=== PATIENT | female | born 1960 | race Caucasian/White ===

== ENCOUNTER → 2016-11-26 | Outpatient (CLI) | payer MEDICARE ==
--- NOTE | 2016-11-26 09:33 | US ---
EXAMINATION TYPE: US carotid duplex BILAT DATE OF EXAM: 11/26/2016 COMPARISON:NONE CLINICAL HISTORY: R09.89 CAROTID BRUIT. Right Carotid Bruit EXAM MEASUREMENTS: RIGHT: Peak Systolic Velocity (PSV) cm/sec ----- Right CCA: 66.0 ----- Right ICA: 277.6 ----- Right ECA: 146.5 ICA/CCA ratio: 4.2 RIGHT: End Diastole cm/sec ----- Right CCA: 23.2 ----- Right ICA: 149.4 ----- Right ECA: 38.2 LEFT: Peak Systolic Velocity (PSV) cm/sec ----- Left CCA: 64.3 ----- Left ICA: 78.7 ----- Left ECA: 126.4 ICA/CCA ratio: 1.2 LEFT: End Diastole cm/sec ----- Left CCA: 27.6 ----- Left ICA: 44.2 ----- Left ECA: 28.0 VERTEBRALS (direction of flow): Right Vertebral: Antegrade Left Vertebral: Antegrade Soft plaque within right ICA with significant stenosis right ICA and right ECA IMPRESSION: Severe internal carotid artery stenosis on the right. This is greater than 70%. Correlat e with patient's clinical symptoms. 2. Mild left external carotid artery narrowing of less than 50%. The left internal carotid artery is not stenotic. Criteria for Assigning % of Stenosis / Diameter reduction (Estimation based on the indirect measurements of the internal carotid artery velocities (ICA PSV). 1. Normal (no stenosis)=ICA PSV < 125 cm/s: ratio < 2.0: ICA EDV<40 cm/s. 2. Less than 50% stenosis=ICA PSV < 125 cm/s: ratio < 2.0: ICA EDV<40 cm/s. 3. 50 to 69% stenosis=ICA PSV of 125 to 230 cm/s: ration 2.0 ? 4.0: ICA EDV 40-100 cm/s. 4. Greater than 70% stenosis to near occlusion= ICA PSV > 230 cm/s: ratio > 4.0: ICA EDV > 100 cm/s. 5. Near occlusion= ICA PSV velocities may be low or undetectable: variable ratio and ICA EDV. 6. Total occlusion=unable to detect flow.
== END | disposition home or self-care (01) ==
LOC: RADUSWWP 08:50
PROVIDERS: ATTEND Family Medicine
DX: I65.23 Occlusion and stenosis of bilateral carotid arteries (principal)
CPT/HCPCS: 93880

== ENCOUNTER → 2017-01-17 | Outpatient (CLI) | payer MEDICARE, OTHER ==
--- NOTE | 2017-01-17 18:41 | CT ---
EXAMINATION TYPE: CT angio neck DATE OF EXAM: 01/17/2017 HISTORY: Left arm numbness and carotid stenosis. COMPARISON: Carotid ultrasound dated 11/26/2016 CT DLP: 450.4 mGycm. Automated Exposure Control for Dose Reduction was Utilized. TECHNIQUE: CTA scan of the neck is performed without and with IV Contrast, patient injected with 65 mL of Omnipaque 350, axial images are obtained, coronal and sagittal reformatted images are reviewed. Three-D reconstructed images are created on an independent workstation and reviewed. FINDINGS: Carotid/Vascular Structures: At the origin of the right common carotid artery there is both soft and calcific plaquing occupying less than 50% of the lumen, not hemodynamically significant. The remainde r the common carotid artery is unremarkable on the right, however at the carotid bulb there is both n oncalcified plaque and calcific atheromatous changes narrowing the lumen approximately 50%. Just dist al to this there is a short segment of approximately 1.2 cm above stenosis greater than 70% caused by noncalcified atheromatous plaquing. There is ostial narrowing of the external carotid artery of appr oximately 50% at its origin. The cervical portion, petrous portion, cavernous portion, and supraclino id portion of the right internal carotid artery are without atheromatous changes. No proximal atherosclerosis is seen on the left. At the origin of the left external carotid artery at the carotid bulb there is ostial atherosclerosis narrowing the origin significantly, with no postste notic dilatation (greater than 50%). The cervical portion, petrous portion, cavernous portion, and heart praclinoid portion of the left internal carotid artery are without atheromatous changes. Other: Biapical pleural-parenchymal scarring is noted. Multilevel degenerative disc disease is also n oted with stranding of the usual cervical lordosis. Disc disease is most pronounced at C5-C6 and C6-C 7. IMPRESSION: 1. Short segment area of severe stenosis (greater than 70%) within the internal carotid artery on the right just distal to the carotid bifurcation secondary to noncalcified plaquing. 2. Ostial narrowing at the origins of both external carotid arteries with no evidence of poststenotic dilatation. 3. No evidence of hemodynamically significant stenosis of the left common carotid or internal carotid artery.
== END | disposition home or self-care (01) ==
LOC: RADCTMAIN 16:37
PROVIDERS: ATTEND Thoracic Surgery (Cardiothoracic Vascular Surgery)
DX: I65.23 Occlusion and stenosis of bilateral carotid arteries (principal)
CPT/HCPCS: 70498; Q9967

== ENCOUNTER → 2017-02-03 | Outpatient (CLI) | payer MEDICARE, OTHER ==
[2017-02-03 16:30] LABS: EKG EKG PERFORMED
[2017-02-03 16:59] LABS: Basophils % (A) 1 %; CH 30.1; CHCM 32.4; Eosinophils # (A) 0.3 k/uL (0-0.7); Eosinophils % (A) 4 %; HCT 46.7 % (34.0-46.0); HDW 2.44; HGB 14.9 gm/dL (11.4-16.0); Luc # (Auto) 0.14; Luc % (Auto) 2; Lymphocytes # (A) 2.7 k/uL (1.0-4.8); Lymphocytes % (A) 38 %; MCH 29.7 pg (25.0-35.0); MCHC 31.8 g/dL (31.0-37.0); MCV 93.4 fL (80.0-100.0); Mean Platelet Volume 7.4; Monocytes # (A) 0.4 k/uL (0-1.0); Monocytes % (A) 6 %; Neutrophils # (A) 3.6 k/uL (1.3-7.7); Neutrophils % (A) 51 %; RDW 15.3 % (11.5-15.5); WBC 7.1 k/uL (3.8-10.6); WBC (Perox) 6.91
[2017-02-03 17:03] LABS: Partial Thromboplastin Time 27.2 sec (22.0-30.0); Prothrombin Time 9.9 sec (9.0-12.0)
[2017-02-03 17:08] LABS: Anion Gap 8 mmol/L; Blood Urea Nitrogen 10 mg/dL (7-17); Carbon Dioxide 28 mmol/L (22-30); Chloride 104 mmol/L (98-107); Glucose 84 mg/dL (74-99); Non-African American GFR(MDRD) 47 (>60 ml/min/1.73 sqM); Potassium 4.8 mmol/L (3.5-5.1); Sodium 140 mmol/L (137-145)
== END | disposition home or self-care (01) ==
LOC: LABPAT 16:10
PROVIDERS: ATTEND Thoracic Surgery (Cardiothoracic Vascular Surgery)
DX: Z01.810 Encounter for preprocedural cardiovascular examination (principal); Z01.812 Encounter for preprocedural laboratory examination; R53.83 Other fatigue; I65.21 Occlusion and stenosis of right carotid artery
CPT/HCPCS: 80051; 82565; 82947; 84520; 85025; 85610; 85730; 86850; 86900; 86901; 87077; 87086; 87186; 93005

== ENCOUNTER 2017-02-07 06:24 | Inpatient (IN) | payer MEDICARE, OTHER ==
[2017-02-03 15:22] VITALS: BMI 25.8
[~2017-02-07 06:24] MED LIST: DEXAMETHASONE SOD PHOSPHATE 10 MG/ML 1 ML VIAL IV ONE; HYDROmorphone 1 MG/ML 1 ML SYRINGE IVP PRN; LACTATED RINGERS 1,000 ML IV SCH; LIDOCAINE 1% 20 ML VIAL (10MG/ML) FOR IV START INTRADERMA PRN; MIDAZOLAM 2 MG/2 ML VIAL IV PRN; NITROGLYCERIN-D5W PMX 50 MG in DEXTROSE/WATER 1 250ML.BAG IV SCH; ONDANSETRON 4 MG/2 ML VIAL IVP ONE; PHENYLEPHRINE 40 MG in SODIUM CHLORIDE 0.9% 250 ML IV SCH; SCOPOLAMINE 1.5MG/72HR PATCH TRANSDERM ONE; ceFAZolin 2 GM in SODIUM CHLORIDE 0.9% 100 ML IVPB ONE
[2017-02-07] MEDS ORDERED: PROPOFOL 10 MG/ML 20 ML VIAL IV ONE (07:55)
[2017-02-07] MEDS ORDERED: fentaNYL (PF) 50 MCG/ML 2 ML AMP ONE (07:55)
[2017-02-07] MEDS ORDERED: GLYCOPYRROLATE 0.2 MG/ML 2 ML VIAL ONE (07:55)
[2017-02-07] MEDS ORDERED: SUCCINYLCHOLINE CHLORIDE 100 MG/5 ML SYR IV ONE (07:55)
[2017-02-07] MEDS ORDERED: LABETALOL 5 MG/ML VIAL MDV ONE (07:55)
[2017-02-07] MEDS ORDERED: MORPHINE SULFATE 10 MG/ML SYRINGE ONE (07:55)
[2017-02-07] MEDS ORDERED: PHENYLEPHRINE-0.9% NACL SYG 1 MG/10 ML SYRINGE ONE (07:55)
[2017-02-07] MEDS ORDERED: MIDAZOLAM 2 MG/2 ML VIAL ONE (07:55)
[2017-02-07] MEDS ORDERED: ROCURONIUM BROMIDE 10 MG/ML 10 ML VIAL IV ONE (07:55)
[2017-02-07] MEDS ORDERED: HEPARIN SODIUM,PORCINE 10,000 UNIT/ML 1 ML VIAL ONE (07:55)
[2017-02-07] MEDS ORDERED: NEOSTIGMINE 1 MG/ML 10 ML VIAL ONE (07:55)
[2017-02-07] MEDS ORDERED: LIDOCAINE 1% INJ 10MG/ML (20 ML MDV) ONE (07:55)
[2017-02-07] MEDS ORDERED: SODIUM CHLORIDE 0.9% 500 ML with HEPARIN SODIUM,PORCINE 5,000 UNIT IV ONE ×2 (08:44)
[2017-02-07] MEDS ORDERED: LACTATED RINGERS 1,000 ML IV ONE (08:49)
[2017-02-07] MEDS ORDERED: THROMBIN (BOVINE) 5,000 UNIT VIAL TOPICAL ONE (09:27)
[2017-02-07] MEDS ORDERED: GELATIN SPONGE,ABSORB (SMALL) 1 EACH SPONGE TOPICAL ONE (09:32)
[2017-02-07] MEDS ORDERED: ACETAMINOPHEN TAB 325 MG TAB PO PRN (09:46)
[2017-02-07] MEDS ORDERED: LORazepam 0.5 MG TAB PO PRN (09:46)
[2017-02-07] MEDS ORDERED: MAGNESIUM HYDROXIDE 2,400 MG/10 ML CUP PO PRN (09:46)
--- NOTE | 2017-02-07 10:15 | P.OP ---
Date of Procedure: 02/07/17 Preoperative Diagnosis: High-grade right internal carotid artery stenosis Postoperative Diagnosis: High-grade right internal carotid artery stenosis Procedure(s) Performed: Right internal carotid endarterectomy with Dacron patch angioplasty Implants: Anesthesia: GETA Surgeon: Marco A Garcia Estimated Blood Loss (ml): 40 Pathology: other (Atherosclerotic plaque) Condition: stable Disposition: ICU Indications for Procedure: Operative Findings: Description of Procedure: [facility] [place] patient was brought to the operating room electively for right carotid endarterectomy because of the findings of high-grade blockage the patient was positioned prepped and draped under general anesthesia for right carotid surgery and had neural monitoring performed with EEG as well as SSEP monitoring by [employer] patient was positioned prepped and draped in usual sterile Betadine fashion and a incision on the anterior border the sternocleidomastoid muscle was carried out through skin and subcutaneous tissue electrocautery was utilized for hemostasis and the carotid sheath was entered the common carotid internal and external carotid arteries were all identified and controlled heparin was administered 7500 units IV after 5 minutes of circulating heparin time we occluded the carotid artery with vascular occlusion clamps and opened the carotid through the high-grade blockage with a sharp blade and a scissors meticulous endarterectomy was performed in its entirety removing all intimal debris and the heavily laden soft plaque was removed and external carotid artery was also endarterectomized and the entire plaque was removed we flushed the area with heparin saline solution intact down the intima with 7-0 Prolene suture superiorly we close the vessel after meticulous removal of all intimal debris utilizing loupe magnification we then closed the artery with a dacryon Hemashield patch utilizing 6-0 Prolene suture we backbled and vented the vessel of any potential air or debris and restore blood flow without any changes in neural monitoring once hemostasis was achieved Gelfoam and topical thrombin we were able to then close the operative site with Vicryl sutures and all layers dressings were applied and the patient was awakened and extubated in the operating room tolerating the procedure well and sent to the recovery room in a stable condition
[2017-02-07] MEDS ORDERED: BENZOCAINE/MENTHOL LOZENG 1 EACH LOZENGE MUCOUS MEM PRN (10:41)
[2017-02-07] MEDS ORDERED: MAG HYDROX/AL HYDROX/SIMETH 30 ML CUP PO PRN (10:41)
[2017-02-07] MEDS ORDERED: TEMAZEPAM 15 MG CAP PO PRN (10:41)
[2017-02-07] MEDS ORDERED: TRIMETHOBENZAMIDE 100 MG/ML 2 ML VIAL IM PRN (10:41)
[2017-02-07 11:27] LABS: Glucose,Whole Blood 129 mg/dL (75-99)
[2017-02-07] MEDS: DEXTROSE 5%-0.45% NACL 1,000 ML IV SCH (11:30)
--- NOTE | 2017-02-07 12:17 | P.CNPUL ---
History of Present Illness Consult date: 02/07/17 Chief complaint: carotid artery disease, CEA History of present illness: 56-year-old female patient with known history of carotid artery disease, underwent a right carotid endarterectomy and the patient is postop day #0. The patient got moved to the intensive care unit for further monitoring. Surgery has been done without any significant complications. The patient is hemodynamically stable. The right carotid surgical wound site is dry clean and intact. Her most recent blood pressure is 110/59. The patient is on D5 half- normal saline at the rate of 75 mL an hour and the patient is on no pressors at this point. No respiratory distress. No focal neurological deficit. No chest pain. No other complaints otherwise. Review of Systems Constitutional: Denies chills, Denies fever Eyes: denies blurred vision, denies bulging eye, denies decreased vision Ears: deny: decreased hearing, ear discharge, earache Ears, nose, mouth and throat: Denies headache, Denies sore throat Cardiovascular: Denies chest pain, Denies shortness of breath Respiratory: Denies cough Gastrointestinal: Denies abdominal pain, Denies diarrhea, Denies nausea, Denies vomiting Genitourinary: Denies dysuria, Denies hematuria Musculoskeletal: Denies myalgias Musculoskeletal: absent: ankle stiffness, ankle swelling, as per HPI Integumentary: Denies pruritus, Denies rash Neurological: Denies numbness, Denies weakness Psychiatric: Denies anxiety, Denies depression Endocrine: Denies fatigue, Denies weight change Past Medical History Past Medical History: Hyperlipidemia, Hypertension, Musculoskeletal Disorder, Thyroid Disorder Additional Past Medical History / Comment(s): Carotid artery disease, hiatal hernia, peripheral neuropathy, chronic back pain, seasonal environmental ALLERGIES, hypothyroidism, osteoarthritis, hypertension, hyperlipidemia History of Any Multi-Drug Resistant Organisms: None Reported Past Surgical History: Back Surgery, Section, Tubal Ligation Additional Past Surgical History / Comment(s): SINUS SURGERY. Past Anesthesia/Blood Transfusion Reactions: Previous Problems w/ Anesthesia Additional Past Anesthesia/Blood Transfusion Reaction / Comment(s): SHE WAS TOLD IT TOOK ALOT OF MEDICATION TO PUT HER OUT FOR PAIN PROCEDURE. Smoking Status: Current every day smoker - Past Family History Mother Family Medical History: Cancer Additional Family Medical History / Comment(s): BREAST CA Medications and Allergies Home Medications Medication Instructions Recorded Confirmed Type Omeprazole 40 mg PO DAILY 11/29/13 02/07/17 History Gabapentin [Gabapentin] 300 mg PO QID 01/27/15 02/07/17 History Acetaminophen Tab [Tylenol Tab] 325 - 650 mg PO Q4H PRN 02/03/17 02/07/17 History Citalopram Hydrobromide 40 mg PO DAILY 02/03/17 02/07/17 History [Citalopram HBr] Dm/PE/Acetaminophen/Doxylamine 1 cap PO DAILY PRN 02/03/17 02/07/17 History [Mayda-[place] Plus Day-Night Cp] LORazepam [Ativan] 0.5 mg PO DAILY PRN 02/03/17 02/07/17 History Magnesium Hydroxide [Milk of 2,400 mg PO DAILY PRN 02/03/17 02/07/17 History Magnesia] Morphine Sulfate 15 mg PO QID PRN 02/03/17 02/07/17 History diphenhydrAMINE [Benadryl] 25 mg PO TID PRN 02/03/17 02/07/17 History Allergies Allergy/AdvReac Type Severity Reaction Status Date / Time No Known Allergies Allergy Verified 02/03/17 14:42 Physical Exam Vitals: Vital Signs Temp Pulse Pulse Resp BP BP BP 02/07/17 11:40 96 18 02/07/17 11:30 97.9 F 89 20 113/61 02/07/17 11:05 93 16 106/78 02/07/17 10:50 98.2 F 93 16 97/42 02/07/17 10:35 85 16 97/42 02/07/17 10:20 84 14 102/59 02/07/17 10:05 98.2 F 84 14 94/52 02/07/17 06:50 02/07/17 06:48 96.5 F L 02/07/17 06:43 111 H 16 144/72 BP Pulse Ox 02/07/17 11:40 94 L 02/07/17 11:30 95 02/07/17 11:05 123/67 93 L 02/07/17 10:50 110/78 94 L 02/07/17 10:35 102/56 93 L 02/07/17 10:20 104/47 94 L 02/07/17 10:05 114/57 94 L 02/07/17 06:50 152/72 02/07/17 06:48 02/07/17 06:43 92 L Intake and Output 02/06/17 02/07/17 02/07/17 22:59 06:59 14:59 Intake Total 350 1459 Output Total 270 Balance 350 1189 Intake: IV 350 1459 Output: Urine 230 Estimated Blood Loss 40 ABP, PAP, CO, CI - Last 8 Hours Arterial Blood Pressure 125/69 Arterial Blood Pressure 125/43 The patient appeared well nourished and normally developed. Vital signs as documented. Head exam is unremarkable. No scleral icterus or corneal arcus noted. Neck is without jugular venous distension, thyromegaly, or carotid bruits. Carotid upstrokes are brisk bilaterally. Lungs are clear to auscultation and percussion. Cardiac exam reveals the PMI to be normally sized and situated. Rhythm is regular. First and second heart sounds normal. No murmurs, rubs or gallops. Abdominal exam reveals normal bowel sounds, no masses , no organomegaly and no aortic enlargement. Extremities are nonedematous and both femoral and pedal pulses are normal. The surgical wound site over the right neck areas dry clean and intact. No swelling. No erythema. Results - Laboratory Findings Abnormal lab findings: Abnormal Labs 02/07/17 11:25 POC Glucose (mg/dL) 129 H Assessment and Plan Plan: Assessment 1 Right carotid endarterectomy. The patient is postop day #0.Patient is doing extremely well. Hemodynamically stable. 2 multiple other medical comorbidities including hiatal hernia, peripheral neuropathy, chronic back pain, seasonal environmental ALLERGIES, hypothyroidism , osteoarthritis, hypertension, hyperlipidemia Plan Monitor the patient in ICU for another 24 hours. Surgical wound site is clean. Hemodynamically stable. No neurological deficits. Possible discharge in a.m. if continues to be stable.
[2017-02-07] MEDS: GABAPENTIN 300 MG CAP PO SCH ×4 (12:39→23:38)
[2017-02-07] MEDS: MORPHINE SULFATE IR 15 MG TABLET PO PRN ×3 (15:10→23:37)
[2017-02-07] MEDS: HEPARIN SODIUM,PORCINE 5,000 UNIT/ML 1 ML VIAL SQ SCH ×2 (15:10→23:38)
[2017-02-07] MEDS: ceFAZolin 2 GM in SODIUM CHLORIDE 0.9% 100 ML IVPB SCH ×2 (15:10→23:38)
[2017-02-08 05:34] LABS: ALT 21 U/L (9-52); AST 19 U/L (14-36); Alkaline Phosphatase 71 U/L (38-126); Anion Gap 4 mmol/L; Blood Urea Nitrogen 9 mg/dL (7-17); Calcium 8.7 mg/dL (8.4-10.2); Carbon Dioxide 25 mmol/L (22-30); Chloride 108 mmol/L (98-107); Glucose 110 mg/dL (74-99); Non-African American GFR(MDRD) >60 (>60 ml/min/1.73 sqM); Potassium 4.3 mmol/L (3.5-5.1); Sodium 137 mmol/L (137-145); Total Bilirubin 0.3 mg/dL (0.2-1.3); Total Protein 5.5 g/dL (6.3-8.2)
[2017-02-08 05:41] LABS: Basophils % (A) 0 %; CH 29.5; CHCM 32.6; Eosinophils % (A) 0 %; HCT 36.1 % (34.0-46.0); HDW 2.47; Luc # (Auto) 0.09; Luc % (Auto) 1; Lymphocytes # (A) 1.4 k/uL (1.0-4.8); Lymphocytes % (A) 21 %; MCH 30.1 pg (25.0-35.0); MCHC 33.2 g/dL (31.0-37.0); MCV 90.9 fL (80.0-100.0); Mean Platelet Volume 7.2; Monocytes # (A) 0.5 k/uL (0-1.0); Monocytes % (A) 7 %; Neutrophils # (A) 4.8 k/uL (1.3-7.7); Neutrophils % (A) 70 %; RBC 3.97 m/uL (3.80-5.40); RDW 14.4 % (11.5-15.5); WBC 6.8 k/uL (3.8-10.6); WBC (Perox) 6.95
[2017-02-08] MEDS: MORPHINE SULFATE IR 15 MG TABLET PO PRN ×2 (06:51→10:36)
[2017-02-08] MEDS: DEXTROSE 5%-0.45% NACL 1,000 ML IV SCH (06:52)
[2017-02-08] MEDS ORDERED: PANTOPRAZOLE 40 MG TABLET PO SCH (07:30)
[2017-02-08] MEDS ORDERED: ASPIRIN 81 MG CHEW PO SCH (09:00)
[2017-02-08] MEDS ORDERED: CITALOPRAM HYDROBROMIDE 20 MG TAB PO SCH (09:00)
[2017-02-08] MEDS: HEPARIN SODIUM,PORCINE 5,000 UNIT/ML 1 ML VIAL SQ SCH (09:00)
[2017-02-08] MEDS: GABAPENTIN 300 MG CAP PO SCH (09:01)
--- NOTE | 2017-02-08 09:03 | P.PN ---
Subjective 56-year-old female patient with known history of carotid artery disease, underwent a right carotid endarterectomy and the patient is postop day #0. The patient got moved to the intensive care unit for further monitoring. Surgery has been done without any significant complications. The patient is hemodynamically stable. The right carotid surgical wound site is dry clean and intact. Her most recent blood pressure is 110/59. The patient is on D5 half- normal saline at the rate of 75 mL an hour and the patient is on no pressors at this point. No respiratory distress. No focal neurological deficit. No chest pain. No other complaints otherwise. on 02/08/2017 the patient is hemodynamically stable. No hypertension or hypotension. No neurologic deficits pH has good grasps in both upper extremities. Gait is within normal. No change in mental status. No facial weakness. No swallowing difficulties. No neck swelling. Surgical wound site is dry clean and intact. Were looking to discharge this patient home probably within next few hours. She is tolerated her diet. No nausea. No vomiting. No emesis. Objective - Vital Signs Vital signs: Vital Signs Temp 98.3 F 02/08/17 04:00 Pulse 69 02/08/17 07:00 Resp 18 02/08/17 07:00 BP 113/61 02/07/17 12:30 Pulse Ox 98 02/08/17 07:00 Intake & Output 02/07/17 02/08/17 02/08/17 18:59 06:59 18:59 Intake Total 2079 925 75 Output Total 310 Balance 1769 925 75 [place]: [place] [address] 75 Dextrose 5%-0.45% NaCl , 525 825 75 000 ml @ 75 mls/hr IV . [id number] PAPITO Rx#:[id number] Lactated Ringers 1,000 ml 20 @ 20 mls/hr IV .Q24H PAPITO Rx#:[id number] ceFAZolin 2 gm In Sodium 100 Chloride 0.9% 100 ml @ 100 mls/hr IVPB ONCE ONE Rx#:[id number] Intake, IV Titration 75 Amount Dextrose 5%-0.45% NaCl 1, 75 000 ml @ 75 mls/hr IV . [id number] PAPITO Rx#:[id number] Output: Urine 270 Estimated Blood Loss 40 Other: Voiding Method Indwelling Catheter Indwelling Catheter # Voids 1 1 ABP, PAP, CO, CI - Last Documented Arterial Blood Pressure 137/73 - Exam The patient appeared well nourished and normally developed. Vital signs as documented. Head exam is unremarkable. No scleral icterus or corneal arcus noted. Neck is without jugular venous distension, thyromegaly, or carotid bruits. Carotid upstrokes are brisk bilaterally. Lungs are clear to auscultation and percussion. Cardiac exam reveals the PMI to be normally sized and situated. Rhythm is regular. First and second heart sounds normal. No murmurs, rubs or gallops. Abdominal exam reveals normal bowel sounds, no masses , no organomegaly and no aortic enlargement. Extremities are nonedematous and both femoral and pedal pulses are normal. The surgical wound site over the right neck areas dry clean and intact. No swelling. No erythema. - Labs CBC & Chem 7: 02/08/17 04:40 02/08/17 04:40 Labs: Abnormal Lab Results - Last 24 Hours (Table) 02/07/17 02/08/17 Range/Units 11:25 04:40 Chloride 108 H (98-107) mmol/L Glucose 110 H (74-99) mg/dL POC Glucose (mg/dL) 129 H (75-99) mg/dL Total Protein 5.5 L (6.3-8.2) g/dL Albumin 2.9 L (3.5-5.0) g/dL Assessment and Plan Plan: Assessment 1 Right carotid endarterectomy. The patient is postop day #1 .Patient is doing extremely well. Hemodynamically stable. 2 multiple other medical comorbidities including hiatal hernia, peripheral neuropathy, chronic back pain, seasonal environmental ALLERGIES, hypothyroidism , osteoarthritis, hypertension, hyperlipidemia Plan patient is stable. No neurologic deficits. No neurologic complications from the carotid surgery. Discharge home today.
[2017-02-08 09:29] VITALS: TEMP 98.2
[2017-02-08 10:10] VITALS: BP 96/52; PULSE 71; RESP 12
--- NOTE | 2017-02-08 12:52 | P.DS ---
Providers Date of admission: 02/07/17 06:24 Attending physician: Marco A Garcia Consults: 02/07/17 10:41 Consult Physician Routine Consulting Provider: Darshan Lemus Consult Reason/Comments: vascular management Do you want consulting provider notified?: Already Contacted Consult Physician Routine Consulting Provider: Nate Yang Consult Reason/Comments: medical management Do you want consulting provider notified?: Yes 02/07/17 10:49 Consult Physician Routine Consulting Provider: Jannet Herring Consult Reason/Comments: research laboratory manager management in ICU Do you want consulting provider notified?: Yes Primary care physician: Nate Yang [facility] Course: FINAL DIAGNOSIS: 1. High-grade severe right internal carotid artery stenosis greater than 70%. 2. Current tobacco dependence 3. Hypertension 4. Hyperlipidemia 5. Hypothyroid 6. Peripheral neuropathy. 7. Chronic low back pain. PRINCIPAL PROCEDURE: 1. Elective right internal carotid endarterectomy with Dacron patch angioplasty HISTORY OF PRESENT ILLNESS: This 56-year-old female was being followed by Dr. Garcia for carotid artery disease. Apparently she had a carotid ultrasound done in 2015 demonstrating significant right carotid stenosis. She had a neck CTA done in early January 2017, again demonstrating severe right internal carotid artery stenosis. She was recommended to undergo carotid endarterectomy. An extensive discussion was had with the patient, risks and benefits were explained, and consent was obtained to proceed with surgery. HOSPITAL COURSE: The patient was brought to the hospital on 02/07/2017, taken to the preoperative area, prepared in the usual fashion, and subsequently taken to the operating room Dr. Garcia performed an elective right internal carotid endarterectomy with Dacron patch angioplasty. Upon completion of surgery the patient was extubated, taken to the post anesthesia recovery unit, was monitored , and when appropriate was transferred to the intensive care unit for further monitoring and rehabilitation. She did well through the night and her radial arterial line was discontinued on postop day 1. Her vital signs remained stable , her oxygen was titrated down, she was tolerating her diet, she ambulated to and from the bathroom multiple times, her pain was controlled, her incision was well approximated with Steri-Strips, and she was ready to be discharged home on postoperative day #1. She received written and verbal instruction regarding her medications, activity restrictions, signs and symptoms requiring physician notification, and follow-up appointments. COMPLICATIONS: There were no postoperative complications. DISCHARGE INSTRUCTIONS: 1. No driving for 2 weeks, or until physician gives their ok. 2. No lifting, pushing, or pulling more than 5 pounds for 2 weeks. The physician will advise of any restriction changes. 3. Continue pain control per as needed orders. 4. Continue with incentive spirometry until otherwise directed by the physician. 5. Must shower daily using liquid antibacterial soap on incision. Do not rub incision dry, pat dry. 6. Routine sternal incision care. No powders, lotions, ointments on incisions. May cut steri-strips as they curl up but don't pull off 7. Please call surgeon/CELL CHANGER for temp greater than 101 F or purulent drainage from incisions. 8. Need to quit smoking! Plan - Discharge Summary New Discharge Prescriptions: New Aspirin 162 mg PO DAILY #60 tab Continue Omeprazole 40 mg PO DAILY Gabapentin 300 mg PO QID Acetaminophen Tab [Tylenol] 325 - 650 mg PO Q4H PRN PRN Reason: Pain diphenhydrAMINE [Benadryl] 25 mg PO TID PRN PRN Reason: ALLERGY SX Citalopram Hydrobromide [Citalopram HBr] 40 mg PO DAILY Morphine Sulfate 15 mg PO QID PRN PRN Reason: Pain LORazepam [Ativan] 0.5 mg PO DAILY PRN PRN Reason: Anxiety Dm/PE/Acetaminophen/Doxylamine [Mayda-[place] Plus Day-Night Cp] 1 cap PO DAILY PRN PRN Reason: ALLERGY SX Magnesium Hydroxide [Milk of Magnesia] 2,400 mg PO DAILY PRN PRN Reason: Constipation Discharge Medication List Omeprazole 40 mg PO DAILY 11/29/13 [History] Gabapentin 300 mg PO QID 01/27/15 [History] Acetaminophen Tab [Tylenol] 325 - 650 mg PO Q4H PRN 02/03/17 [History] Citalopram Hydrobromide [Citalopram HBr] 40 mg PO DAILY 02/03/17 [History] Dm/PE/Acetaminophen/Doxylamine [Mayda-[place] Plus Day-Night Cp] 1 cap PO DAILY PRN 02/03/17 [History] LORazepam [Ativan] 0.5 mg PO DAILY PRN 02/03/17 [History] Magnesium Hydroxide [Milk of Magnesia] 2,400 mg PO DAILY PRN 02/03/17 [History] Morphine Sulfate 15 mg PO QID PRN 02/03/17 [History] diphenhydrAMINE [Benadryl] 25 mg PO TID PRN 02/03/17 [History] Aspirin 162 mg PO DAILY #60 tab 02/08/17 [Rx] Follow up Appointment(s)/Referral(s): Darshan Lemus DO [Doctor of Osteopathic Medicine] - 02/15/17 9:15 am Nate Yang MD [Primary Care Provider] - As Needed Activity/Diet/Wound Care/Special Instructions: DISCHARGE INSTRUCTIONS: 1. No driving for 2 weeks, or until physician gives their ok. 2. No lifting, pushing, or pulling more than 5 pounds for 2 weeks. The physician will advise of any restriction changes. 3. Continue pain control per as needed orders. 4. Continue with incentive spirometry until otherwise directed by the physician. 5. Must shower daily using liquid antibacterial soap on incision. Do not rub incision dry, pat dry. 6. Routine sternal incision care. No powders, lotions, ointments on incisions. May cut steri-strips as they curl up but don't pull off 7. Please call surgeon/CELL CHANGER for temp greater than 101 F or purulent drainage from incisions. 8. Need to quit smoking! Discharge Disposition: HOME SELF-CARE
--- NOTE | 2017-02-09 09:38 | PN ---
DATE OF SERVICE: 02/08/2017 CHIEF COMPLAINT: Status post right carotid endarterectomy. HISTORY OF PRESENT ILLNESS: This lady is doing well. She has had no chest pain , shortness of breath, focal neurologic deficits, etc. PHYSICAL EXAM: She is awake and alert. Dressing is dry. The chest is clear. The cardiac exam is normal. The abdomen is soft, nontender. IMPRESSION: Right carotid stenosis. PLAN: Continue to follow with Surgery. She is doing well and may be going home today. FRANCOISE
--- NOTE | 2017-02-09 10:00 | CONS ---
CHIEF COMPLAINT: Right carotid occlusive disease. HISTORY OF PRESENT ILLNESS: This is the first known admission for this 56-year- old white female who was identified as having right carotid occlusive disease. She was brought in for an elective carotid endarterectomy. She has a history of heavy smoking. REVIEW OF SYSTEMS: She has had no change in vision or hearing, headache, neurologic deficits, etc. She has had no hemoptysis, sputum production, heart disease, murmurs, rheumatic fever, hypertension, abdominal pain, nausea, vomiting, hematemesis, melena, hematochezia, colitis, diverticulosis, diverticulitis, ( ), hepatitis, cirrhosis, gallbladder disease, renal disease , renal failure, dysuria, hematuria, frequency, urgency, etc. PAST MEDICAL HISTORY, FAMILY HISTORY AND PERSONAL AND SOCIAL HISTORIES: Reveal that she is not allergic to any medication. She has been on Ativan 1 mg p.r.n. , Vicodin 10 q.i.d. p.r.n., morphine 15 mg 4 times a day, gabapentin 300 mg 4 times a day, citalopram 20 mg once a day, omeprazole 40 mg once a day. She continues to smoke about 2 packs a day. PHYSICAL EXAMINATION: Blood pressure 136/88, pulse of 84, respirations of 16, and she is afebrile. In general, she appears to be well developed and well nourished, in no acute distress. Skin color is normal, skin is warm and dry. Lymph nodes are not enlarged. Head, ears, eyes, nose, mouth and throat were normal and neck veins are not distended. There is a right carotid bruit. The chest is clear to auscultation and percussion and the cardiac exam is normal, sinus rhythm and no murmur is detected. The abdomen is soft, nontender without visceromegaly or masses. Bowel sounds are present. Extremities are normal and neurologically she is intact. IMPRESSION: 1. Right carotid stenosis. 2. Atherosclerotic cardiovascular disease. 3. Chronic obstructive pulmonary disease. RECOMMENDATIONS: None. She is seems to be doing well at the present time. She will have to be watched carefully for narcotic withdrawal symptoms in that she has been in the habit of taking large quantities of analgesics. FRANCOISE
== END 2017-02-08 11:11 | disposition home or self-care (01) | DRG 39 ==
LOC: 2ORMAIN 06:24 → 6ICU 09:26
PROVIDERS: ADMIT Thoracic Surgery (Cardiothoracic Vascular Surgery); ATTEND Thoracic Surgery (Cardiothoracic Vascular Surgery)
PROC: 03UH0JZ Supplement Right Common Carotid Artery with Synthetic Substitute, Open Approach (ICD-10-PCS; 2017-02-07)
PROC: 03CK0ZZ Extirpation of Matter from Right Internal Carotid Artery, Open Approach (ICD-10-PCS; principal; 2017-02-07 08:00)
DX: I65.21 Occlusion and stenosis of right carotid artery (principal); G62.9 Polyneuropathy, unspecified; I10 Essential (primary) hypertension; E78.5 Hyperlipidemia, unspecified; G89.29 Other chronic pain; I25.10 Atherosclerotic heart disease of native coronary artery without angina pectoris; J44.9 Chronic obstructive pulmonary disease, unspecified; M54.5 Low back pain; J30.9 Allergic rhinitis, unspecified; R09.89 Other specified symptoms and signs involving the circulatory and respiratory systems; E03.9 Hypothyroidism, unspecified; K44.9 Diaphragmatic hernia without obstruction or gangrene; F17.200 Nicotine dependence, unspecified, uncomplicated; Z79.899 Other long term (current) drug therapy; Z80.3 Family history of malignant neoplasm of breast; Z71.6 Tobacco abuse counseling; Z98.51 Tubal ligation status; Z98.1 Arthrodesis status; Z80.9 Family history of malignant neoplasm, unspecified; Z86.73 Personal history of transient ischemic attack (TIA), and cerebral infarction without residual deficits; Z79.891 Long term (current) use of opiate analgesic; Z87.11 Personal history of peptic ulcer disease; Z86.69 Personal history of other diseases of the nervous system and sense organs
CPT/HCPCS: 36620; 80053; 85025; 86850; 86900; 86901; 88304; 88311

== ENCOUNTER → 2017-05-09 | Outpatient (CLI) | payer MEDICARE, OTHER ==
[2017-05-09 12:13] VITALS: BP 114/74; PULSE 82; RESP 16; TEMP 98.1
--- NOTE | 2017-05-09 12:29 | P.PN ---
Progress Note - Text Progress Note Date: 05/09/17 This is a 56-year-old female with history of lumbar postlaminectomy pain syndrome and recent carotid endarterectomy on the right side. The patient is on morphine sulfate IR 15 mg 4 times a day for her pain and Neurontin. She gets her medications from a different clinic clinic and [place], however she comes to our clinic for interventional pain procedures because it is closer to her home. Today she is complaining of right buttock pain with tenderness around the sacroiliac joint and also on the lumbar paravertebral area. She had 2 back surgeries with lumbar fusion and hardware placement. She is alert oriented 3 no apparent distress she has tenderness as I mentioned above around the sacroiliac joint on the right side and also on the right side of the lumbar paravertebral area. She denies any new symptoms in the lower extremities. At this point I will schedule the patient to have right sacral joint steroid injection under fluoroscopic guidance she also may need in the future caudal epidural steroid injection if the sacroiliac injection does not help her pain.
== END | disposition home or self-care (01) ==
LOC: PNWHC3 11:55
PROVIDERS: ATTEND Anesthesiology
DX: M54.5 Low back pain (principal); Z79.899 Other long term (current) drug therapy; Z79.891 Long term (current) use of opiate analgesic
CPT/HCPCS: 99211

== ENCOUNTER 2018-06-02 12:40 | Emergency (ER) | payer MEDICARE, OTHER ==
[2018-06-02] MEDS ORDERED: MORPHINE SULFATE 2 MG/ML SYRINGE IVP STA (13:28)
[2018-06-02] MEDS ORDERED: SODIUM CHLORIDE 0.9% 1,000 ML IV ONE (13:28)
[2018-06-02 13:52] LABS: Basophils # (A) 0.1 k/uL (0-0.2); Basophils % (A) 1 %; Eosinophils # (A) 0.1 k/uL (0-0.7); Eosinophils % (A) 1 %; HCT 46.5 % (34.0-46.0); HGB 15.3 gm/dL (11.4-16.0); Lymphocytes # (A) 1.2 k/uL (1.0-4.8); Lymphocytes % (A) 12 %; MCH 29.8 pg (25.0-35.0); MCHC 32.8 g/dL (31.0-37.0); MCV 90.8 fL (80.0-100.0); Mean Platelet Volume 6.9; Monocytes # (A) 0.7 k/uL (0-1.0); Monocytes % (A) 7 %; Neutrophils # (A) 7.6 k/uL (1.3-7.7); Neutrophils % (A) 78 %; Platelet Count 237 k/uL (150-450); RBC 5.12 m/uL (3.80-5.40); RDW 13.2 % (11.5-15.5); WBC 9.8 k/uL (3.8-10.6)
[2018-06-02 14:02] LABS: Albumin 4.1 g/dL (3.5-5.0); Calcium 9.6 mg/dL (8.4-10.2); Potassium 4.5 mmol/L (3.5-5.1); Total Bilirubin 0.7 mg/dL (0.2-1.3); Total Protein 7.5 g/dL (6.3-8.2)
--- NOTE | 2018-06-02 14:05 | ED ---
Skin/Abscess/FB HPI - General Chief complaint: Skin/Abscess/Foreign Body Stated complaint: Facial cellulitis Time Seen by Provider: 06/02/18 13:04 Source: patient Mode of arrival: ambulatory Limitations: no limitations - History of Present Illness Initial comments: 57yo well appearing female with PMH of depression presenting today for chief complaint of left-sided facial swelling x 3 days. Patient states that Tuesday she noted left lower jaw pain, she felt like a tooth infection however she has had all of her teeth removed. Patient denied noting any gingiva swelling or palpate a fluctuant abscess. Patient does admit to pain with opening and closing of the jaw. Patient denies any palpable fecal or noting a temperature. Patient states that the area is swollen feels warm to touch however there is no overlying erythema, palpable abscess. Patient has a difficulty breathing or swallowing, swelling of the tongue or below the tongue, headache, dizziness, visual changes, diplopia, chest pain, nausea, vomiting, diarrhea urgency, frequency, dysuria, recent URI, congestion, cough with sinus pressure, facial trauma. Patient states she presented [facility] and was sent to the emergency department for further evaluation and possible imaging. Upon arrival patient has a low-grade fever of 99.8F, she is tachycardic at 111. Remainder of vital signs stable patient appears well, nontoxic signs of acute distress. There is noted mild left-sided facial swelling below the angle of the mandible. - Related Data Home Medications Medication Instructions Recorded Confirmed Omeprazole 40 mg PO DAILY 11/29/13 06/02/18 Gabapentin 300 mg PO TID 01/27/15 06/02/18 Citalopram Hydrobromide 40 mg PO DAILY 02/03/17 06/02/18 [Citalopram HBr] risperiDONE [RisperDAL] 2 mg PO DAILY 05/09/17 06/02/18 traZODone HCL [TraZODone HCl] 50 mg PO HS PRN 05/09/17 06/02/18 LORazepam [Ativan] 1 mg PO BID 06/02/18 06/02/18 Previous Rx's Medication Instructions Recorded Amoxicillin/Potassium Clav 1 tab PO Q12HR 7 Days #14 tab 06/02/18 [Augmentin 875-125 Tablet] Allergies Allergy/AdvReac Type Severity Reaction Status Date / Time No Known Allergies Allergy Verified 06/02/18 14:08 Review of Systems ROS Statement: Those systems with pertinent positive or pertinent negative responses have been documented in the HPI. ROS Other: All systems not noted in ROS Statement are negative. Constitutional: Denies: fever, chills, night sweats ENT: Denies: ear pain, throat pain Respiratory: Denies: cough, dyspnea, wheezes, hemoptysis, stridor Cardiovascular: Denies: chest pain, palpitations, dyspnea on exertion Gastrointestinal: Denies: abdominal pain, nausea, vomiting, diarrhea, constipation, hematemesis, melena, hematochezia Genitourinary: Denies: urgency, dysuria, frequency, hematuria Musculoskeletal: Denies: back pain Skin: Reports: other (left lower facial swelling/pain). Denies: rash, lesions Neurological: Denies: headache Past Medical History Past Medical History: Hyperlipidemia, Hypertension, Musculoskeletal Disorder, Thyroid Disorder Additional Past Medical History / Comment(s): Carotid artery disease, hiatal hernia, peripheral neuropathy, chronic back pain, seasonal environmental ALLERGIES, hypothyroidism, osteoarthritis, hypertension, hyperlipidemia History of Any Multi-Drug Resistant Organisms: None Reported Past Surgical History: Back Surgery, Section, Tubal Ligation Additional Past Surgical History / Comment(s): SINUS SURGERY. RIGHT CAROTID ENDARCTEMY. Past Anesthesia/Blood Transfusion Reactions: Previous Problems w/ Anesthesia Additional Past Anesthesia/Blood Transfusion Reaction / Comment(s): SHE WAS TOLD IT TOOK ALOT OF MEDICATION TO PUT HER OUT FOR PAIN PROCEDURE. Past Psychological History: Anxiety, Depression Smoking Status: Current every day smoker Past Alcohol Use History: Occasional Past Drug Use History: None Reported - Past Family History Mother Family Medical History: Cancer Additional Family Medical History / Comment(s): BREAST CA General Exam - General Exam Comments Initial Comments: General: The patient is awake and alert, in no distress, and does not appear acutely ill. Patient appears nontoxic no signs or history distress. Eye: +3 mm pupils are equal, round and reactive to light, extra-ocular movements are intact. No nystagmus. There is normal conjunctiva bilaterally. No signs of icterus. Ears, nose, mouth and throat: There are moist mucous membranes and no oral lesions. Non-erythematous, there is no tonsillar enlargement or lesions. Uvula midline. No swelling of the tongue, or sublingual space. There is noted left sided facial swelling without erythema. This extends from below the angle of the mandible. Mild warmth to palpation. Upon palpation of the gingiva there is no fluctuant abscess, oral lesions. Pt has no teeth. Neck: The neck is supple, there is no tenderness or JVD. No palpable anterior cervical lymphadenopathy Cardiovascular: There is a regular rate and rhythm. No murmur, rub or gallop is appreciated. Respiratory: Lungs are clear to auscultation, respirations are non-labored, breath sounds are equal. No wheezes, stridor, rales, or rhonchi. Musculoskeletal: Normal ROM, no tenderness. Strength 5/5. Sensation intact. Pulses equal bilaterally 2+. Neurological: A&O x 3. CN II-XII intact, There are no obvious motor or sensory deficits. Coordination appears grossly intact. Speech is normal. Skin: Skin is warm and dry and no rashes or lesions are noted. Psychiatric: Cooperative, appropriate mood & affect, normal judgment. Limitations: no limitations Course Vital Signs 06/02/18 06/02/18 12:57 15:53 Temperature 99.8 F H 98.0 F Pulse Rate 111 H 90 Respiratory 20 18 Rate Blood Pressure 103/70 148/72 O2 Sat by Pulse 99 96 Oximetry Medical Decision Making - Medical Decision Making Well appearing 57yo female. White blood cell count within normal limits. Remainder of laboratory findings unremarkable. Patient appears well nontoxic, patient does have low-grade fever, given tylenol. There is some mild submandibular swelling. CT of the soft tissue neck obtained with contrast revealing findings concerning for left-sided sialoadenitis of the submandibular gland with adjacent reactive adenopathy. Patient will be started on Bactrim as well as given instruction use sour lozenges and f/u with ENT. Patient is agreeable with plan and discharge. Case discussed in detail with Dr. Wong prior to discharge of pt who agrees with impression and plan. Pt discharged in stable condition, with return parameters discussed at length prior to discharge. - Lab Data Result diagrams: 06/02/18 13:35 06/02/18 13:35 Lab Results 06/02/18 06/02/18 06/02/18 Range/Units 13:35 13:35 13:35 WBC 9.8 (3.8-10.6) k/uL RBC 5.12 (3.80-5.40) m/uL Hgb 15.3 (11.4-16.0) gm/dL Hct 46.5 H (34.0-46.0) % MCV 90.8 (80.0-100.0) fL MCH 29.8 (25.0-35.0) pg MCHC 32.8 (31.0-37.0) g/dL RDW 13.2 (11.5-15.5) % Plt Count 237 (150-450) k/uL Neutrophils % 78 % Lymphocytes % 12 % Monocytes % 7 % Eosinophils % 1 % Basophils % 1 % Neutrophils # 7.6 (1.3-7.7) k/uL Lymphocytes # 1.2 (1.0-4.8) k/uL Monocytes # 0.7 (0-1.0) k/uL Eosinophils # 0.1 (0-0.7) k/uL Basophils # 0.1 (0-0.2) k/uL Sodium 136 L (137-145) mmol/L Potassium 4.5 (3.5-5.1) mmol/L Chloride 104 (98-107) mmol/L Carbon Dioxide 21 L (22-30) mmol/L Anion Gap 11 mmol/L BUN 10 (7-17) mg/dL Creatinine 1.19 H (0.52-1.04) mg/dL Est GFR (CKD-EPI)AfAm 59 (>60 ml/min/1.73 sqM) Est GFR (CKD-EPI)NonAf 51 (>60 ml/min/1.73 sqM) Glucose 100 H (74-99) mg/dL Plasma Lactic Acid Oliver 0.8 (0.7-2.0) mmol/L Calcium 9.6 (8.4-10.2) mg/dL Total Bilirubin 0.7 (0.2-1.3) mg/dL AST 13 L (14-36) U/L ALT 16 (9-52) U/L Alkaline Phosphatase 101 (38-126) U/L Total Protein 7.5 (6.3-8.2) g/dL Albumin 4.1 (3.5-5.0) g/dL Disposition Clinical Impression: Sialadenitis Disposition: HOME SELF-CARE Condition: Good Instructions: Sialoadenitis (ED) Additional Instructions: Please use medication as discussed. Please suck on sour candies such as lemon drops, as discussed-do not take any prior to sleeping. Please return to emergency room if the symptoms increase or worsen or for any other concerns including difficulty breathing, or inability to swallow. Please follow-up with primary care provider in next 1-2 days, and ENT in the next 2-3 days. Prescriptions: Amoxicillin/Potassium Clav [Augmentin 875-125 Tablet] 1 tab PO Q12HR 7 Days #14 tab Is patient prescribed a controlled substance at d/c from ED?: No Referrals: Sukhdeep Vázquez DO [Primary Care Provider] - 1-2 days Chidi Carnes DO [Doctor of Osteopathic Medicine] - 1-2 days Time of Disposition: 15:04
[2018-06-02] MEDS ORDERED: ACETAMINOPHEN TAB 325 MG TAB PO STA (14:09)
--- NOTE | 2018-06-02 14:47 | CT ---
EXAMINATION TYPE: CT soft tissue neck w con DATE OF EXAM: 06/02/2018 COMPARISON: None HISTORY: Neck swelling CT DLP: 206.5 mGycm CONTRAST: CT scan of the neck is performed with IV Contrast, patient injected with 80 mL of Isovue 300. Contrast enhanced CT of the neck was performed from the skull base through the lung apices. AIRWAY: The supraglottic, glottic, and subglottic portions of the airway appear patent and free of mass. SALIVARY GLANDS: There is enlargement of the left submandibular gland relative to its left-sided coun terpart with surrounding glandular edema. The left submandibular gland measures 3.2 x 3.1 x 1.8 cm in the right submandibular gland measures 3.0 x 1.2 x 2.4 cm. Several prominent adjacent lymph nodes ar e identified measuring up to 1 cm. No distinct intraglandular lesions are seen. Parotid glands are sy mmetric bilaterally. No obvious calculus seen. THYROID GLAND: No nodules or masses seen. LYMPH NODES: There is also left internal jugular chain adenopathy appreciated measuring 1.8 cm. No ad ditional adenopathy appreciated at this time. LUNG APICES: No nodule or mass is seen. OTHER: Vascular structures are patent. No significant degenerative change of the cervical spine. N o abscess seen. IMPRESSION: 1. Findings which may reflect left-sided sialoadenitis of the submandibular gland with adjacent react lara adenopathy. Correlate clinically.
[2018-06-02] MEDS ORDERED: AMOXIC-POT CLAV 875MG STARTER 2 EACH TABLET PO STA (15:26)
[2018-06-02 15:55] VITALS: BP 148/72; PULSE 90; RESP 18; TEMP 98
== END 2018-06-02 15:53 | disposition home or self-care (01) ==
LOC: EC 12:40
DX: K11.20 Sialoadenitis, unspecified (principal); R50.9 Fever, unspecified; R00.0 Tachycardia, unspecified; G62.9 Polyneuropathy, unspecified; F32.9 Major depressive disorder, single episode, unspecified; F41.9 Anxiety disorder, unspecified; F17.200 Nicotine dependence, unspecified, uncomplicated; Z79.899 Other long term (current) drug therapy
CPT/HCPCS: 36415; 80053; 83605; 85025; 87040; 70491; 99284; 96374; 96361 ×2; J2270; Q9967

== ENCOUNTER 2018-06-11 02:07 | Emergency (ER) | payer MEDICARE, OTHER ==
[2018-06-11] MEDS ORDERED: CLINDAMYCIN 150 MG CAP PO STA (02:59)
[2018-06-11] MEDS ORDERED: ONDANSETRON 4 MG ODT STARTER PACK 2 TAB BTL PO STA (03:00)
[2018-06-11] MEDS ORDERED: ACET/COD 300 MG/30 MG STARTER PACK 6 TAB BTL PO STA (03:00)
--- NOTE | 2018-06-11 03:04 | ED ---
ENT HPI - General Source: patient, RN notes reviewed Mode of arrival: ambulatory Limitations: no limitations <Godfrey Duque - Last Filed: 06/11/18 03:00> <Daisha Pham - Last Filed: 06/15/18 00:02> - General Chief complaint: Dental/Oral Stated complaint: Dental pain Time Seen by Provider: 06/11/18 02:42 - History of Present Illness Initial comments: 57-year-old female presents emergency Department chief complaint of left-sided facial swelling. Patient seen here 2 days ago for similar complaints was found to have a blocked salivary gland duct. Patient states she was improving while she was on antibiotics was states that she has not taken for last 5 days ago that was making her sick and states that symptoms worsen again. Patient had lab work and CT at her primary care visits. Patient reports no fever or chills. Denies any difficulty swallowing. She states it is painful at this time. (Godfrey Duque) - Related Data Home Medications Medication Instructions Recorded Confirmed Omeprazole 40 mg PO DAILY 11/29/13 06/02/18 Gabapentin 300 mg PO TID 01/27/15 06/02/18 Citalopram Hydrobromide 40 mg PO DAILY 02/03/17 06/02/18 [Citalopram HBr] risperiDONE [RisperDAL] 2 mg PO DAILY 05/09/17 06/02/18 traZODone HCL [TraZODone HCl] 50 mg PO HS PRN 05/09/17 06/02/18 LORazepam [Ativan] 1 mg PO BID 06/02/18 06/02/18 Previous Rx's Medication Instructions Recorded Amoxicillin/Potassium Clav 1 tab PO Q12HR 7 Days #14 tab 06/02/18 [Augmentin 875-125 Tablet] Clindamycin HCl 300 mg PO Q6HR #40 cap 06/11/18 Ondansetron Odt [Zofran Odt] 4 mg PO Q8HR PRN #14 tab 06/11/18 Allergies Allergy/AdvReac Type Severity Reaction Status Date / Time No Known Allergies Allergy Verified 06/11/18 02:20 Review of Systems ROS Other: All systems not noted in ROS Statement are negative. <Godfrey Duque - Last Filed: 06/11/18 03:00> ROS Other: All systems not noted in ROS Statement are negative. <Daisha Pham P - Last Filed: 06/15/18 00:02> ROS Statement: Those systems with pertinent positive or pertinent negative responses have been documented in the HPI. Past Medical History Past Medical History: Hyperlipidemia, Hypertension, Musculoskeletal Disorder, Thyroid Disorder Additional Past Medical History / Comment(s): Carotid artery disease, hiatal hernia, peripheral neuropathy, chronic back pain, seasonal environmental ALLERGIES, hypothyroidism, osteoarthritis, hypertension, hyperlipidemia History of Any Multi-Drug Resistant Organisms: None Reported Past Surgical History: Back Surgery, Section, Tubal Ligation Additional Past Surgical History / Comment(s): SINUS SURGERY. RIGHT CAROTID ENDARCTEMY. Past Anesthesia/Blood Transfusion Reactions: Previous Problems w/ Anesthesia Additional Past Anesthesia/Blood Transfusion Reaction / Comment(s): SHE WAS TOLD IT TOOK ALOT OF MEDICATION TO PUT HER OUT FOR PAIN PROCEDURE. Past Psychological History: Anxiety, Depression Smoking Status: Current every day smoker Past Alcohol Use History: Occasional Past Drug Use History: None Reported - Past Family History Mother Family Medical History: Cancer Additional Family Medical History / Comment(s): BREAST CA <Godfrey Duque M - Last Filed: 06/11/18 03:00> General Exam Limitations: no limitations General appearance: alert, in no apparent distress Head exam: Present: atraumatic, normocephalic, normal inspection Eye exam: Present: normal appearance, PERRL, EOMI. Absent: scleral icterus, conjunctival injection, periorbital swelling ENT exam: Present: mucous membranes moist, TM's normal bilaterally, normal external ear exam, other (Swelling noted on the left submandibular region). Absent: normal oropharynx (Edentulous, no abscess noted no obvious stone at the end of the duct) Neck exam: Present: normal inspection, full ROM. Absent: tenderness, meningismus, lymphadenopathy Respiratory exam: Present: normal lung sounds bilaterally. Absent: respiratory distress, wheezes, rales, rhonchi, stridor Cardiovascular Exam: Present: regular rate, normal rhythm, normal heart sounds. Absent: systolic murmur, diastolic murmur, rubs, gallop, clicks <Godfrey Duque M - Last Filed: 06/11/18 03:00> Vital Signs 06/11/18 06/11/18 02:16 03:25 Temperature 98.2 F 98.5 F Pulse Rate 111 H 115 H Respiratory 17 18 Rate Blood Pressure 132/72 159/102 O2 Sat by Pulse 96 96 Oximetry Medical Decision Making <Godfrey Duque - Last Filed: 06/11/18 03:00> <Daisha Pham - Last Filed: 06/15/18 00:02> - Medical Decision Making 57-year-old female presents for left-sided facial swelling. I did review prior ER records. It does show evidence of sialodenitis. Patient will be given clindamycin no one this may be upset GI at this time. Patient will be given Zofran along with pain medications. Patient will follow-up with ENT and oral surgery. (Godfrey Duque) I was available for consultation in the emergency department. The history and physical exam were done by the midlevel provider. I was consulted for this patient's care. I reviewed the case with the midlevel provider and based on their presentation of the patient, I agree with the assessment, medical decision making and plan of care as documented. (Daisha Pham) Disposition Is patient prescribed a controlled substance at d/c from ED?: No Time of Disposition: 03:04 <Godfrey Duque - Last Filed: 06/11/18 03:00> <Daisha Pham - Last Filed: 06/15/18 00:02> Clinical Impression: Sialadenitis Disposition: HOME SELF-CARE Condition: Stable Instructions: Sialoadenitis (ED) Additional Instructions: Please return to the Emergency Department if symptoms worsen or any other concerns. Prescriptions: Clindamycin HCl 300 mg PO Q6HR #40 cap Ondansetron Odt [Zofran Odt] 4 mg PO Q8HR PRN #14 tab PRN Reason: Nausea Referrals: Sukhdeep Vázquez DO [Primary Care Provider] - 1-2 days Benito Barillas MD [STAFF PHYSICIAN] - 1-2 days Myles Fung DDS [STAFF PHYSICIAN] - 1-2 days
[2018-06-11 03:27] VITALS: BP 159/102; PULSE 115; RESP 18; TEMP 98.5
== END 2018-06-11 03:33 | disposition home or self-care (01) ==
LOC: EC 02:07
DX: K11.20 Sialoadenitis, unspecified (principal); G62.9 Polyneuropathy, unspecified; F41.9 Anxiety disorder, unspecified; F32.9 Major depressive disorder, single episode, unspecified; I77.89 Other specified disorders of arteries and arterioles; Z98.890 Other specified postprocedural states; Z79.899 Other long term (current) drug therapy
CPT/HCPCS: 99283; S0119

== ENCOUNTER 2018-10-13 16:48 | Inpatient (IN) | payer MEDICARE, OTHER ==
[2018-10-13 16:59] LABS: Glucose,Whole Blood 86 mg/dL (75-99)
[2018-10-13] MEDS ORDERED: SODIUM CHLORIDE 0.9% 1,000 ML IV ONE (17:10)
--- NOTE | 2018-10-13 17:13 | ED ---
General Adult HPI - General Chief complaint: Altered Mental Status Stated complaint: Altered mental status Time Seen by Provider: 10/13/18 16:52 Source: patient, EMS Mode of arrival: EMS Limitations: altered mental status - History of Present Illness Initial comments: Dictation was produced using [employer] dictation software. please excuse any grammatical, word or spelling errors. Chief Complaint: 58-year-old female with past medical history of anxiety presents with altered mental status. History of Present Illness: She arrives by EMS. According to grandson and other family friend patient was found to be altered today. Patient is normally slow however she was slow and having amnestic issues. Last known normal was y . Patient does have anxiety medications. Family also noted there is several open half consumed alcoholic beverages around the house. Patient was seen, lethargic and stumbling. Family suspects that patient may have had alcohol and anxiety medications at the same time. EMS reports that she had pinpoint pupils. They report that she was hypoxic upon initial evaluation she was given supplemental oxygen. Rest,she is not a IV drug abuser or illicit drug user. Unable to obtain review of systems secondary to mental status PHYSICAL EXAM: General Impression: Alert and oriented x2/4, not in acute distress HEENT: Normocephalic atraumatic, extra-ocular movements intact, pupils equal and reactive to light bilaterally, mucous membranes moist. Cardiovascular: Heart regular rate and rhythm, S1&S2 audible, no murmurs, rubs or gallops Chest: Mild bilateral wheezing Abdomen: Bowel sounds present, abdomen soft, non-tender, non-distended, no organomegaly Musculoskeletal: Pulses present and equal in all extremities, no peripheral edema Motor: no focal deficits noted Neurological: CN II-XII grossly intact, no focal motor or sensory deficits noted Skin: Intact with no visualized rashes ED course: Biv-ddib-wwh female presents with acute altered mental status. Vital signs upon arrival shows 90% on 2 [place]. Laboratory evaluation obtained. CBC, coag panel, metabolic panels obtained showing no acute processes. Abdominal labs are negative. Urinalysis is negative. Rapid urine drugs positive for opiates and benzodiazepine. Salicylates and Tylenol level is negative. Computed tomography scan of the head shows no acute processes. Chest x-ray is unremarkable. Collateral information was obtained from family. Patient allegedly is a chronic opiate and benzodiazepine user. She is known for taking large doses of this medication on top of EtOH ingestion. Daughter at bedside is concerned about her psychiatric wellness. She does request that psychiatry be consult in her situation. Given the patient still showing signs of opiate/benzodiazepine toxicity will plan a patient admitted to internal medicine. Patient case discussed with Dr. santos who is willing to accept admission. Psychiatry consultation. EKG interpretation: Ventricular rate 3, normal sinus rhythm, IA interval 170, QRS 86, QTC 440. No IA prolongation, no QTC prolongation, no ST or T-wave changes noted. EKG compared to 02/03/2017 showing no changes. Overall, this EKG is unremarkable - Related Data Home Medications Medication Instructions Recorded Confirmed Citalopram Hydrobromide 40 mg PO DAILY 02/03/17 10/13/18 [Citalopram HBr] LORazepam [Ativan] 1 mg PO BID PRN 06/02/18 10/13/18 Gabapentin [Neurontin] 400 mg PO QID 10/13/18 10/13/18 Omeprazole [PriLOSEC] 20 mg PO DAILY 10/13/18 10/13/18 risperiDONE [RisperDAL] 2 mg PO HS 10/13/18 10/13/18 traMADol HCL [Ultram] 50 mg PO TID PRN 10/13/18 10/13/18 valACYclovir HCL [Valtrex] 1,000 mg PO TID PRN 10/13/18 10/13/18 Allergies Allergy/AdvReac Type Severity Reaction Status Date / Time No Known Allergies Allergy Verified 10/13/18 17:13 Review of Systems ROS Statement: Those systems with pertinent positive or pertinent negative responses have been documented in the HPI. ROS Other: All systems not noted in ROS Statement are negative. Past Medical History Past Medical History: Hyperlipidemia, Hypertension, Musculoskeletal Disorder, Thyroid Disorder Additional Past Medical History / Comment(s): Carotid artery disease, hiatal hernia, peripheral neuropathy, chronic back pain, seasonal environmental ALLER GIES, hypothyroidism, osteoarthritis, hypertension, hyperlipidemia History of Any Multi-Drug Resistant Organisms: None Reported Past Surgical History: Back Surgery, Section, Tubal Ligation Additional Past Surgical History / Comment(s): SINUS SURGERY. RIGHT CAROTID ENDARCTEMY. Past Anesthesia/Blood Transfusion Reactions: Previous Problems w/ Anesthesia Additional Past Anesthesia/Blood Transfusion Reaction / Comment(s): SHE WAS TOLD IT TOOK ALOT OF MEDICATION TO PUT HER OUT FOR PAIN PROCEDURE. Past Psychological History: Anxiety, Depression Smoking Status: Current every day smoker Past Alcohol Use History: Occasional Past Drug Use History: None Reported - Past Family History Mother Family Medical History: Cancer Additional Family Medical History / Comment(s): BREAST CA General Exam Limitations: altered mental status Course Vital Signs 10/13/18 10/13/18 10/13/18 17:00 17:32 18:32 Temperature 98.6 F Pulse Rate 100 92 90 Respiratory 19 14 15 Rate Blood Pressure 158/93 154/95 142/83 O2 Sat by Pulse 92 L 96 94 L Oximetry 10/13/18 19:30 Temperature Pulse Rate 95 Respiratory 15 Rate Blood Pressure 142/86 O2 Sat by Pulse 94 L Oximetry Medical Decision Making - Lab Data Result diagrams: 10/13/18 17:18 10/13/18 17:18 Lab Results 10/13/18 10/13/18 10/13/18 Range/Units 16:57 17:18 17:18 WBC 9.0 (3.8-10.6) k/uL RBC 4.66 (3.80-5.40) m/uL Hgb 13.8 (11.4-16.0) gm/dL Hct 42.4 (34.0-46.0) % MCV 90.9 (80.0-100.0) fL MCH 29.6 (25.0-35.0) pg MCHC 32.6 (31.0-37.0) g/dL RDW 17.4 H (11.5-15.5) % Plt Count 177 (150-450) k/uL Neutrophils % 70 % Lymphocytes % 18 % Monocytes % 8 % Eosinophils % 3 % Basophils % 1 % Neutrophils # 6.3 (1.3-7.7) k/uL Lymphocytes # 1.6 (1.0-4.8) k/uL Monocytes # 0.7 (0-1.0) k/uL Eosinophils # 0.2 (0-0.7) k/uL Basophils # 0.1 (0-0.2) k/uL Anisocytosis Slight PT (9.0-12.0) sec INR (<1.2) APTT (22.0-30.0) sec Sodium (137-145) mmol/L Potassium (3.5-5.1) mmol/L Chloride (98-107) mmol/L Carbon Dioxide (22-30) mmol/L Anion Gap mmol/L BUN (7-17) mg/dL Creatinine (0.52-1.04) mg/dL Est GFR (CKD-EPI)AfAm (>60 ml/min/1.73 sqM) Est GFR (CKD-EPI)NonAf (>60 ml/min/1.73 sqM) Glucose (74-99) mg/dL POC Glucose (mg/dL) 86 (75-99) mg/dL POC Glu Heat Sealing Machine Operator ID Kelsey De Guzman Calcium (8.4-10.2) mg/dL Total Bilirubin (0.2-1.3) mg/dL AST (14-36) U/L ALT (9-52) U/L Alkaline Phosphatase (38-126) U/L Ammonia <9 (<30) umol/L Creatine Kinase (30-135) U/L Troponin I (0.000-0.034) ng/mL Total Protein (6.3-8.2) g/dL Albumin (3.5-5.0) g/dL Urine Color Urine Appearance (Clear) Urine pH (5.0-8.0) Ur Specific [place] (1.001-1.035) Urine Protein (Negative) Urine Glucose (UA) (Negative) Urine Ketones (Negative) Urine Blood (Negative) Urine Nitrite (Negative) Urine Bilirubin (Negative) Urine Urobilinogen (<2.0) mg/dL Ur Leukocyte Esterase (Negative) Salicylates mg/dL Urine Opiates Screen (NotDetected) Ur Oxycodone Screen (NotDetected) Urine Methadone Screen (NotDetected) Ur Propoxyphene Screen (NotDetected) Acetaminophen ug/mL Ur Barbiturates Screen (NotDetected) U Tricyclic Antidepress (NotDetected) Ur Phencyclidine Scrn (NotDetected) Ur Amphetamines Screen (NotDetected) U Methamphetamines Scrn (NotDetected) U Benzodiazepines Scrn (NotDetected) Urine Cocaine Screen (NotDetected) U Marijuana (THC) Screen (NotDetected) Serum Alcohol mg/dL 10/13/18 10/13/18 10/13/18 Range/Units 17:18 17:18 17:18 WBC (3.8-10.6) k/uL RBC (3.80-5.40) m/uL Hgb (11.4-16.0) gm/dL Hct (34.0-46.0) % MCV (80.0-100.0) fL MCH (25.0-35.0) pg MCHC (31.0-37.0) g/dL RDW (11.5-15.5) % Plt Count (150-450) k/uL Neutrophils % % Lymphocytes % % Monocytes % % Eosinophils % % Basophils % % Neutrophils # (1.3-7.7) k/uL Lymphocytes # (1.0-4.8) k/uL Monocytes # (0-1.0) k/uL Eosinophils # (0-0.7) k/uL Basophils # (0-0.2) k/uL Anisocytosis PT 10.0 (9.0-12.0) sec INR 0.9 (<1.2) APTT 28.8 (22.0-30.0) sec Sodium 136 L (137-145) mmol/L Potassium 4.4 (3.5-5.1) mmol/L Chloride 106 (98-107) mmol/L Carbon Dioxide 24 (22-30) mmol/L Anion Gap 6 mmol/L BUN 10 (7-17) mg/dL Creatinine 1.22 H (0.52-1.04) mg/dL Est GFR (CKD-EPI)AfAm 57 (>60 ml/min/1.73 sqM) Est GFR (CKD-EPI)NonAf 49 (>60 ml/min/1.73 sqM) Glucose 83 (74-99) mg/dL POC Glucose (mg/dL) (75-99) mg/dL POC Glu Heat Sealing Machine Operator ID Calcium 9.0 (8.4-10.2) mg/dL Total Bilirubin 0.4 (0.2-1.3) mg/dL AST 29 (14-36) U/L ALT 14 (9-52) U/L Alkaline Phosphatase 85 (38-126) U/L Ammonia (<30) umol/L Creatine Kinase 223 H (30-135) U/L Troponin I <0.012 (0.000-0.034) ng/mL Total Protein 6.6 (6.3-8.2) g/dL Albumin 3.9 (3.5-5.0) g/dL Urine Color Urine Appearance (Clear) Urine pH (5.0-8.0) Ur Specific [place] (1.001-1.035) Urine Protein (Negative) Urine Glucose (UA) (Negative) Urine Ketones (Negative) Urine Blood (Negative) Urine Nitrite (Negative) Urine Bilirubin (Negative) Urine Urobilinogen (<2.0) mg/dL Ur Leukocyte Esterase (Negative) Salicylates mg/dL Urine Opiates Screen (NotDetected) Ur Oxycodone Screen (NotDetected) Urine Methadone Screen (NotDetected) Ur Propoxyphene Screen (NotDetected) Acetaminophen ug/mL Ur Barbiturates Screen (NotDetected) U Tricyclic Antidepress (NotDetected) Ur Phencyclidine Scrn (NotDetected) Ur Amphetamines Screen (NotDetected) U Methamphetamines Scrn (NotDetected) U Benzodiazepines Scrn (NotDetected) Urine Cocaine Screen (NotDetected) U Marijuana (THC) Screen (NotDetected) Serum Alcohol <10 mg/dL 10/13/18 10/13/18 Range/Units 17:30 19:30 WBC (3.8-10.6) k/uL RBC (3.80-5.40) m/uL Hgb (11.4-16.0) gm/dL Hct (34.0-46.0) % MCV (80.0-100.0) fL MCH (25.0-35.0) pg MCHC (31.0-37.0) g/dL RDW (11.5-15.5) % Plt Count (150-450) k/uL Neutrophils % % Lymphocytes % % Monocytes % % Eosinophils % % Basophils % % Neutrophils # (1.3-7.7) k/uL Lymphocytes # (1.0-4.8) k/uL Monocytes # (0-1.0) k/uL Eosinophils # (0-0.7) k/uL Basophils # (0-0.2) k/uL Anisocytosis PT (9.0-12.0) sec INR (<1.2) APTT (22.0-30.0) sec Sodium (137-145) mmol/L Potassium (3.5-5.1) mmol/L Chloride (98-107) mmol/L Carbon Dioxide (22-30) mmol/L Anion Gap mmol/L BUN (7-17) mg/dL Creatinine (0.52-1.04) mg/dL Est GFR (CKD-EPI)AfAm (>60 ml/min/1.73 sqM) Est GFR (CKD-EPI)NonAf (>60 ml/min/1.73 sqM) Glucose (74-99) mg/dL POC Glucose (mg/dL) (75-99) mg/dL POC Glu Heat Sealing Machine Operator ID Calcium (8.4-10.2) mg/dL Total Bilirubin (0.2-1.3) mg/dL AST (14-36) U/L ALT (9-52) U/L Alkaline Phosphatase (38-126) U/L Ammonia (<30) umol/L Creatine Kinase (30-135) U/L Troponin I (0.000-0.034) ng/mL Total Protein (6.3-8.2) g/dL Albumin (3.5-5.0) g/dL Urine Color Light Yellow Urine Appearance Clear (Clear) Urine pH 5.0 (5.0-8.0) Ur Specific [place] 1.003 (1.001-1.035) Urine Protein Negative (Negative) Urine Glucose (UA) Negative (Negative) Urine Ketones Negative (Negative) Urine Blood Negative (Negative) Urine Nitrite Negative (Negative) Urine Bilirubin Negative (Negative) Urine Urobilinogen <2.0 (<2.0) mg/dL Ur Leukocyte Esterase Negative (Negative) Salicylates <1.0 mg/dL Urine Opiates Screen Detected H (NotDetected) Ur Oxycodone Screen Not Detected (NotDetected) Urine Methadone Screen Not Detected (NotDetected) Ur Propoxyphene Screen Not Detected (NotDetected) Acetaminophen <10.0 ug/mL Ur Barbiturates Screen Not Detected (NotDetected) U Tricyclic Antidepress Not Detected (NotDetected) Ur Phencyclidine Scrn Not Detected (NotDetected) Ur Amphetamines Screen Not Detected (NotDetected) U Methamphetamines Scrn Not Detected (NotDetected) U Benzodiazepines Scrn Detected H (NotDetected) Urine Cocaine Screen Not Detected (NotDetected) U Marijuana (THC) Screen Not Detected (NotDetected) Serum Alcohol mg/dL Disposition Clinical Impression: Overdose Disposition: ADMITTED IP TO THIS HOSP Condition: Fair Referrals: Sukhdeep Vázquez DO [Primary Care Provider] - 1-2 days Decision Time: 20:51
[2018-10-13 17:27] LABS: Anisocytosis Slight; Basophils # (A) 0.1 k/uL (0-0.2); Basophils % (A) 1 %; Eosinophils # (A) 0.2 k/uL (0-0.7); Eosinophils % (A) 3 %; HCT 42.4 % (34.0-46.0); HGB 13.8 gm/dL (11.4-16.0); Lymphocytes # (A) 1.6 k/uL (1.0-4.8); Lymphocytes % (A) 18 %; MCH 29.6 pg (25.0-35.0); MCHC 32.6 g/dL (31.0-37.0); MCV 90.9 fL (80.0-100.0); Mean Platelet Volume 7.5; Monocytes # (A) 0.7 k/uL (0-1.0); Monocytes % (A) 8 %; Neutrophils # (A) 6.3 k/uL (1.3-7.7); Neutrophils % (A) 70 %; Platelet Count 177 k/uL (150-450); RBC 4.66 m/uL (3.80-5.40); RDW 17.4 % (11.5-15.5)
[2018-10-13 17:36] LABS: INR 0.9 (<1.2); Partial Thromboplastin Time 28.8 sec (22.0-30.0)
[2018-10-13 17:50] LABS: ALT 14 U/L (9-52); AST 29 U/L (14-36); Albumin 3.9 g/dL (3.5-5.0); Alcohol <10 mg/dL; Alkaline Phosphatase 85 U/L (38-126); Anion Gap 6 mmol/L; Blood Urea Nitrogen 10 mg/dL (7-17); Carbon Dioxide 24 mmol/L (22-30); Chloride 106 mmol/L (98-107); Creatine Kinase 223 U/L (30-135); Glucose 83 mg/dL (74-99); Potassium 4.4 mmol/L (3.5-5.1); Sodium 136 mmol/L (137-145); Total Bilirubin 0.4 mg/dL (0.2-1.3); Total Protein 6.6 g/dL (6.3-8.2)
--- NOTE | 2018-10-13 18:07 | CT ---
EXAMINATION TYPE: CT brain wo con DATE OF EXAM: 10/13/2018 HISTORY: Altered mental status. CT DLP: 1099.4 mGycm. Automated Exposure Control for Dose Reduction was Utilized. TECHNIQUE: CT scan of the head is performed without contrast. COMPARISON: None. FINDINGS: There is no acute intracranial hemorrhage or midline shift identified. There is diffuse v entricular and sulcal prominence consistent with diffuse age-related cerebral atrophy. There is low- attenuation in the periventricular white matter consistent with chronic small vessel ischemic change. The globes are intact and the visualized sinuses are clear. IMPRESSION: No acute intracranial hemorrhage or midline shift. There is mild to minimal diffuse age -related cerebral atrophy and chronic small vessel ischemic change noted.
--- NOTE | 2018-10-13 18:07 | XR ---
EXAMINATION TYPE: XR chest 2V DATE OF EXAM: 10/13/2018 COMPARISON: Chest x-ray December 07, 2014 HISTORY: Altered mental status and weakness. TECHNIQUE: Frontal and lateral views of the chest are obtained. FINDINGS: There is chronic parenchymal change without focal air space opacity, pleural effusion, or pneumothorax seen. Overlying EKG leads are seen. The cardiac silhouette size is within normal limits . The osseous structures are demineralized. IMPRESSION: Chronic parenchymal change without acute pulmonary process.
[2018-10-13 19:40] LABS: Appearance,Urine Clear (Clear); Bilirubin,Urine Negative (Negative); Blood,Urine Negative (Negative); Color,Urine Light Yellow; Glucose,Urine (UA) Negative (Negative); Ketones,Urine Negative (Negative); Leukocyte Esterase,Urine Negative (Negative); Nitrite,Urine Negative (Negative); Protein,Urine Negative (Negative); Specific Gravity,Urine 1.003 (1.001-1.035); Urobilinogen,Urine <2.0 mg/dL (<2.0)
[2018-10-13 19:52] LABS: Amphetamine Screen,Urine Not Detected (NotDetected); Barbiturate Screen,Urine Not Detected (NotDetected); Benzodiazepines Screen,Urine Detected (NotDetected); Cocaine Screen,Urine Not Detected (NotDetected); Methadone Screen, Urine Not Detected (NotDetected); Opiate Screen,Urine Detected (NotDetected); Oxycodone Screen, Urine Not Detected (NotDetected); Phencyclidine Screen,Urine Not Detected (NotDetected); Tricyclic Antidepressant,Urine Not Detected (NotDetected); Urn Cannabinoid Scrn Not Detected (NotDetected)
[2018-10-13 20:36] LABS: Acetaminophen <10.0 ug/mL; Salicylate <1.0 mg/dL
[2018-10-13] MEDS ORDERED: NALOXONE 0.4 MG/ML 1 ML VIAL IV PRN (20:51)
[2018-10-13] MEDS: SODIUM CHLORIDE 0.9% 1,000 ML IV SCH (22:16)
[2018-10-14] MEDS: SODIUM CHLORIDE 0.9% 1,000 ML IV SCH ×2 (10:43→16:41)
--- NOTE | 2018-10-14 12:34 | P.HPIM ---
History of Present Illness H&P Date: 10/14/18 Chief Complaint: Change in mental status This is a 58-year-old female patient of Dr. Vázquez with past medical history of seasonal ALLERGIES, generalized osteoarthritis, carotid artery disease status post right carotid endarterectomy, peripheral neuropathy, chronic back pain, recurrent depression, generalized anxiety disorder, tobacco use and dependence. Patient states that her son told her that she took too many pills. She denies having any suicidal or depression issues that would cause her to take medication. She states she does not remember what happened. Patient was quite lethargic in the emergency center. Patient gives history of following with [facility] counseling and saw Dr. Harper in the past but not recently. She denies any medication changes. Patient came into [facility] emergency center for evaluation. She was afebrile, heart rate 100, blood pressure initially 158/93, pulse ox 92% on room air. CBC was within normal limits, ammonia level less than 9, blood sugar 86. BUN 10 and creatinine 1.22, CK was 223, troponin negative. Electrolytes and liver function tests within normal limits. Urinalysis was negative for infection. Urine drug screen was positive for opiates and benzodiazepines. Acetaminophen level less than 10 and salsalate level less than 1. Chest x-ray showed chronic. Small change without acute pulmonary process. CAT scan of the brain revealed no acute intracranial hemorrhage or midline shift. 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 EKG was a sinus rhythm with no acute ST-T wave changes. Patient received 1 L of IV fluids [facility] and consult requested with psychiatry. Review of Systems All systems: negative Constitutional: Reports lethargy, Denies anorexia, Denies chills, Denies chronic headaches, Denies fever, Denies malaise, Denies poor appetite, Denies weight loss Eyes: denies blurred vision, denies pain Ears, nose, mouth and throat: Denies dental pain, Denies dysphagia, Denies headache, Denies hoarseness, Denies mouth pain, Denies nasal congestion, Denies nasal discharge, Denies sore throat, Denies vertigo Cardiovascular: Denies chest pain, Denies decreased exercise tolerance, Denies dyspnea on exertion, Denies edema, Denies leg edema, Denies lightheadedness, Denies shortness of breath, Denies syncope Respiratory: Denies cough, Denies cough with sputum, Denies dyspnea, Denies excessive sputum, Denies hemoptysis, Denies home oxygen, Denies wheezing Gastrointestinal: Denies abdominal pain, Denies diarrhea, Denies loss of appetite, Denies nausea, Denies vomiting Genitourinary: Denies dysuria, Denies hematuria, Denies urgency, Denies urinary frequency Musculoskeletal: Denies frequent falls, Denies gait dysfunction, Denies muscle weakness, Denies myalgias Integumentary: Denies pruritus, Denies rash, Denies wounds Neurological: Reports change in mentation, Reports confusion, Reports gait dysfunction, Denies aphasia, Denies head injury, Denies headaches, Denies motor disturbance, Denies numbness, Denies seizures, Denies tremors, Denies vertigo, Denies weakness Psychiatric: Reports anxiety, Reports depression, Denies sadness/tearfulness, Denies suicidal ideation Endocrine: Denies fatigue, Denies weight change Past Medical History Past Medical History: Musculoskeletal Disorder Additional Past Medical History / Comment(s): Carotid artery disease, hiatal hernia, peripheral neuropathy, chronic back pain, seasonal environmental ALLERGIES, osteoarthritis History of Any Multi-Drug Resistant Organisms: None Reported Past Surgical History: Back Surgery, Section, Tubal Ligation Additional Past Surgical History / Comment(s): SINUS SURGERY. RIGHT CAROTID ENDARTERECTOMY. Past Anesthesia/Blood Transfusion Reactions: Previous Problems w/ Anesthesia Additional Past Anesthesia/Blood Transfusion Reaction / Comment(s): SHE WAS TOLD IT TOOK ALOT OF MEDICATION TO PUT HER OUT FOR PAIN PROCEDURE. Past Psychological History: Anxiety, Depression Additional Psychological History / Comment(s): NO MEDS. Smoking Status: Current every day smoker Past Alcohol Use History: Occasional Additional Past Alcohol Use History / Comment(s): SMOKES 1 PPD OR LESS, SMOKING SINCE 18 YEARS OLD. Patient denies any marijuana or illicit drug use. She denies any alcohol use. She does not use a cane or walker for ambulation. Past Drug Use History: None Reported Additional Drug Use History / Comment(s): STATES SHE TRIED "ZBD", WHICH IS A FORM OF HEMP-CURRENTLY NOT TAKING, SHE IS GOING TO SPEAK TO THE PAIN CLINIC DR ABOUT IT. - Past Family History Mother Family Medical History: Cancer Additional Family Medical History / Comment(s): Mother at age 59 from breast cancer. Father Additional Family Medical History / Comment(s): Father at age 52 from suic evangelina. Sister(s) Additional Family Medical History / Comment(s): Patient has 2 sisters and 5 brothers with no major medical problems. Patient has one son and one daughter with no major medical problems. Medications and Allergies Home Medications Medication Instructions Recorded Confirmed Type Citalopram Hydrobromide 40 mg PO DAILY 02/03/17 10/13/18 History [Citalopram HBr] LORazepam [Ativan] 1 mg PO BID PRN 06/02/18 10/13/18 History Gabapentin [Neurontin] 400 mg PO QID 10/13/18 10/13/18 History Omeprazole [PriLOSEC] 20 mg PO DAILY 10/13/18 10/13/18 History risperiDONE [RisperDAL] 2 mg PO HS 10/13/18 10/13/18 History traMADol HCL [Ultram] 50 mg PO TID PRN 10/13/18 10/13/18 History valACYclovir HCL [Valtrex] 1,000 mg PO TID PRN 10/13/18 10/13/18 History Allergies Allergy/AdvReac Type Severity Reaction Status Date / Time No Known Allergies Allergy Verified 10/13/18 17:13 Physical Exam Vitals: Vital Signs Temp Pulse Pulse Resp BP BP Pulse Ox 10/14/18 07:00 99.3 F 87 15 145/80 96 10/14/18 03:15 15 10/14/18 01:35 85 14 148/87 95 10/13/18 23:21 85 14 124/74 94 L 10/13/18 22:05 80 15 132/84 94 L 10/13/18 22:00 79 16 127/83 95 10/13/18 21:00 96 15 152/100 94 L 10/13/18 20:30 90 15 143/84 94 L 10/13/18 19:30 95 15 142/86 94 L 10/13/18 18:32 90 15 142/83 94 L 10/13/18 17:32 92 14 154/95 96 10/13/18 17:00 98.6 F 100 19 158/93 92 L Intake and Output 10/13/18 10/14/18 10/14/18 22:59 06:59 14:59 Intake Total 1999 Balance 1999 Intake: Intake, IV Titration 2000 Amount Sodium Chloride 0.9% 1, 1000 000 ml @ 100 mls/hr IV . Q10H [facility] Rx#:[id number] Sodium Chloride 0.9% 1, 1000 000 ml @ 999 mls/hr IV . Q1H1M [facility] Rx#:[id number] Oral 0 Other: # Voids 1 Weight 73.936 kg Gen: This is a 58-year-old female. Patient is resting in bed and appears to be comfortable and in no acute distress. HEENT: Head is atraumatic, normocephalic. Pupils equal, round. Sclerae is anicteric. NECK: Supple. No JVD. No lymphadenopathy. No thyromegaly. LUNGS: Clear to auscultation. No wheezes or rhonchi. No intercostal retractions. HEART: Regular rate and rhythm. No murmur. ABDOMEN: Soft. Bowel sounds are present. No masses. No tenderness. EXTREMITIES: No pedal edema. No calf tenderness. NEUROLOGICAL: Patient is awake, alert and oriented x2. Her speech is slurred and slow. She is slow to respond to questions. Cranial nerves 2 through 12 are grossly intact. Results CBC & Chem 7: 10/13/18 17:18 10/13/18 17:18 Labs: Abnormal Lab Results - Last 24 Hours (Table) 10/13/18 10/13/18 10/13/18 Range/Units 17:18 17:18 19:30 RDW 17.4 H (11.5-15.5) % Sodium 136 L (137-145) mmol/L Creatinine 1.22 H (0.52-1.04) mg/dL Creatine Kinase 223 H (30-135) U/L Urine Opiates Screen Detected H (NotDetected) U Benzodiazepines Scrn Detected H (NotDetected) Microbiology - Last 24 Hours (Table) 10/13/18 19:30 Urine Culture - Preliminary Urine,Clean Catch Thrombosis Risk Factor Assmnt - DVT/VTE Prophylaxis DVT/VTE Prophylaxis: Mechanical Prophylaxis ordered - Choose All That Apply Any of the Below Risk Factors Present?: Yes Each Factor Represents 1 point: Obesity (BMI >25) Other Risk Factors: No Other congenital or acquired thrombophilia - If yes, enter type in comment: No Thrombosis Risk Factor Assessment Total Risk Factor Score: 1 Thrombosis Risk Factor Assessment Level: Low Risk Assessment and Plan Plan: 1. Drug overdose that may be unintentional. Patient is currently medically stable. Consult with psychiatry. Hold narcotics and benzodiazepines. 2. Generalized anxiety disorder. Patient is on Ativan 1 mg twice daily as needed at home. This is on hold. 3. Recurrent depression. Patient is normally on gabapentin 400 mg 4 times daily, citalopram 40 mg daily and Risperdal 2 mg at bedtime on hold 4. Chronic back pain with peripheral neuropathy. Gabapentin 400 mg 4 times daily and Ultram on hold 5. Seasonal ALLERGIES. 6. Carotid artery disease status post right carotid endarterectomy, stable. 7. Tobacco use and dependence. Nicotine patch. 8. GI prophylaxis. Protonix. 9. DVT prophylaxis. GISSELLE villanueva and SCDs. Patient will be admitted to the hospital for a minimum of 2 night stay. Discharge plan: To be determined after evaluated by psychiatry. Impression and plan of care have been directed as dictated by the signing physician. Kaelyn Ramachandran nurse practitioner acting as scribe for signing eliud waters.
[2018-10-14] MEDS: NICOTINE 14MG/24HR PATCH TRANSDERM SCH (13:22)
[2018-10-14] MEDS: PANTOPRAZOLE 40 MG TABLET PO SCH (13:22)
--- NOTE | 2018-10-14 18:17 | P.CN ---
Psychiatric Consult - . Consult date: 10/14/18 Consult:: 10/14/18 18:14 Reason for Consult : Accidental overdose on Ativan HPI: Ms. Conklin is 58 yo female with h/o Depression and anxiety admitted here secondary to overdose on ativan. patient seen and interviewed in detail. Found her anxious. States that she was not suicidal and she never wanted to hurt herself. She is getting ativan through her PCP for anxiety She denies any suicidal or homicidal ideation. Has no psychoses. Past Medical Hx: Multiple medical issues past Psych Hx: Not significant Allergies : see HPI Mental status Exam : MSE: Alert, awake but disoriented in all spheres. Poor eye contact. Mood anxious and depressed with flat affect. Has no suicidal ideation. Has no psychoses. Insight and judgment improving A/P : Major Depressive Disorder, moderate Will start Remeron 15 mg poq hs to improve mood, anxiety and appetite.
[2018-10-14] MEDS ORDERED: MIRTAZAPINE 15 MG TAB PO SCH (21:00)
[2018-10-15 07:16] VITALS: RESP 16
[2018-10-15] MEDS: PANTOPRAZOLE 40 MG TABLET PO SCH (08:48)
[2018-10-15] MEDS: NICOTINE 14MG/24HR PATCH TRANSDERM SCH (08:48)
--- NOTE | 2018-10-15 12:30 | P.DS ---
Providers Date of admission: 10/13/18 20:51 Expected date of discharge: 10/15/18 Attending physician: Lyn Wise Consults: 10/13/18 19:52 Consult Physician Routine Consulting Provider: Chito Rodriges Consult Reason/Comments: overdose Do you want consulting provider notified?: Yes Primary care physician: Sukhdeep Vázquez [place] [facility] Course: This is a 58-year-old female patient of Dr. Vázquez with past medical history of seasonal ALLERGIES, generalized osteoarthritis, carotid artery disease status post right carotid endarterectomy, peripheral neuropathy, chronic back pain, recurrent depression, generalized anxiety disorder, tobacco use and dependence. Patient states that her son told her that she took too many pills. She denies having any suicidal or depression issues that would cause her to take medication. She states she does not remember what happened. Patient was quite lethargic in the emergency center. Patient gives history of following with [facility] counseling and saw Dr. Harper in the past but not recently. She denies any medication changes. Patient came into [facility] emergency center for evaluation. She was afebrile, heart rate 100, blood pressure initially 158/93, pulse ox 92% on room air. CBC was within normal limits, ammonia level less than 9, blood sugar 86. BUN 10 and creatinine 1.22, CK was 223, troponin negative. Electrolytes and liver function tests within normal limits. Urinalysis was negative for infection. Urine drug screen was positive for opiates and benzodiazepines. Acetaminophen level less than 10 and salsalate level less than 1. Chest x-ray showed chronic. Small change without acute pulmonary process. CAT scan of the brain revealed no acute intracranial hemorrhage or midline shift . 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 EKG was a sinus rhythm with no acute ST-T wave changes. Patient received 1 L of IV fluids and [facility] and consult requested with psychiatry. 10/15: Patient has been evaluated by psychiatry and cleared for discharge with recommendations of adding Remeron 15 mg which will be done. Patient states she did not eat this morning and she did not like the food. She has been afebrile, heart rate 81, blood pressure 142/73 pulse ox 94% on room air. Patient will be discharged home today in stable condition. Discharge diagnoses: 1. Drug overdose that may be unintentional. 2. Generalized anxiety disorder. 3. Recurrent depression. 4. Chronic back pain with peripheral neuropathy. 5. Seasonal ALLERGIES. 6. Carotid artery disease status post right carotid endarterectomy, stable. 7. Tobacco use and dependence. Discharge plan: home Impression and plan of care have been directed as dictated by the signing physician. Kaelyn Ramachandran nurse practitioner acting as scribe for signing physician. Patient Condition at Discharge: Good Plan - Discharge Summary Discharge Rx Participant: Yes New Discharge Prescriptions: New Nicotine 14Mg/24Hr Patch [Habitrol] 1 patch TRANSDERM DAILY #30 patch Mirtazapine [Remeron] 15 mg PO HS #30 tab Continue Citalopram Hydrobromide [Citalopram HBr] 40 mg PO DAILY LORazepam [Ativan] 1 mg PO BID PRN PRN Reason: Anxiety valACYclovir HCL [Valtrex] 1,000 mg PO TID PRN PRN Reason: Skin Irritation traMADol HCL [Ultram] 50 mg PO TID PRN PRN Reason: Pain risperiDONE [RisperDAL] 2 mg PO HS Omeprazole [PriLOSEC] 20 mg PO DAILY Gabapentin [Neurontin] 400 mg PO QID Discharge Medication List Citalopram Hydrobromide [Citalopram HBr] 40 mg PO DAILY 02/03/17 [History] LORazepam [Ativan] 1 mg PO BID PRN 06/02/18 [History] Gabapentin [Neurontin] 400 mg PO QID 10/13/18 [History] Omeprazole [PriLOSEC] 20 mg PO DAILY 10/13/18 [History] risperiDONE [RisperDAL] 2 mg PO HS 10/13/18 [History] traMADol HCL [Ultram] 50 mg PO TID PRN 10/13/18 [History] valACYclovir HCL [Valtrex] 1,000 mg PO TID PRN 10/13/18 [History] Mirtazapine [Remeron] 15 mg PO HS #30 tab 10/15/18 [Rx] Nicotine 14Mg/24Hr Patch [Habitrol] 1 patch TRANSDERM DAILY #30 patch 10/15/18 [Rx] Follow up Appointment(s)/Referral(s): Sukhdeep Vázquez DO [Primary Care Provider] - 1 Week Discharge Disposition: HOME SELF-CARE
[2018-10-15 15:04] VITALS: BP 139/72; PULSE 90; TEMP 98.4
== END 2018-10-15 17:46 | disposition home or self-care (01) | DRG 918 ==
LOC: EC 16:48 → 4SSUR 20:51
PROVIDERS: ADMIT Internal Medicine; ATTEND Internal Medicine
DX: T42.4X1A Poisoning by benzodiazepines, accidental (unintentional), initial encounter (principal); F33.9 Major depressive disorder, recurrent, unspecified; E03.9 Hypothyroidism, unspecified; E78.5 Hyperlipidemia, unspecified; F17.210 Nicotine dependence, cigarettes, uncomplicated; F41.1 Generalized anxiety disorder; G62.9 Polyneuropathy, unspecified; G89.29 Other chronic pain; M54.9 Dorsalgia, unspecified; I10 Essential (primary) hypertension; J30.2 Other seasonal allergic rhinitis; M15.9 Polyosteoarthritis, unspecified; Z79.899 Other long term (current) drug therapy; Z80.3 Family history of malignant neoplasm of breast; Z81.8 Family history of other mental and behavioral disorders; F41.9 Anxiety disorder, unspecified
CPT/HCPCS: 36415; 51701; 70450; 71046; 80053; 80306; 80320; 80329; 81003; 82140; 82550; 83520; 84443; 84484; 85025; 85610; 85730; 87086; 93005; 96360; 99285

== ENCOUNTER 2020-08-15 12:37 | Inpatient (IN) | payer MEDICARE, OTHER ==
[2020-08-15] MEDS ORDERED: FAMOTIDINE 20 MG/2 ML VIAL IV STA (13:12)
[2020-08-15] MEDS ORDERED: SODIUM CHLORIDE 0.9% 1,000 ML IV STA (13:12)
[2020-08-15] MEDS ORDERED: IPRATROPIUM-ALBUTEROL 3 ML NEB INHALATION STA (13:12)
[2020-08-15] MEDS ORDERED: hydrALAZINE HCL 20 MG/ML 1 ML VIAL IVP STA (13:14)
--- NOTE | 2020-08-15 13:17 | ED ---
General Adult HPI - General Chief complaint: Shortness of Breath Stated complaint: SOB, abd pain Time Seen by Provider: 08/15/20 12:46 Source: patient, family, RN notes reviewed Mode of arrival: wheelchair Limitations: no limitations - History of Present Illness Initial comments: Patient is a pleasant 60-year-old female presenting to the emergency department with dyspnea and abdominal discomfort. Patient does have chronic dyspnea, worse recently. Patient is a chronic smoker and attributes it to that. No significant cough. No fever. Patient states she is also had discomfort in her abdomen or the past several weeks. Discomfort is mostly when going from sitting to standing position or standing. Patient states she no longer stance because of this. Patient did lose her 3 years ago and has not left the house since that time. Patient states essentially she states on her couch. Patient states she is able to make it to and from the bathroom however that is the extent of her exertion. - Related Data Home Medications Medication Instructions Recorded Confirmed Gabapentin [Neurontin] 400 mg PO TID PRN 10/13/18 08/15/20 Omeprazole [PriLOSEC] 20 mg PO DAILY 10/13/18 08/15/20 diphenhydrAMINE HCL [Benadryl] 25 mg PO DAILY PRN 08/15/20 08/15/20 predniSONE See Taper PO DAILY 08/15/20 08/15/20 Allergies Allergy/AdvReac Type Severity Reaction Status Date / Time amoxicillin AdvReac Nausea & Verified 08/15/20 14:48 Vomiting Review of Systems ROS Statement: Those systems with pertinent positive or pertinent negative responses have been documented in the HPI. ROS Other: All systems not noted in ROS Statement are negative. Constitutional: Denies: fever Eyes: Denies: eye pain ENT: Denies: ear pain Respiratory: Reports: as per HPI, dyspnea Cardiovascular: Denies: chest pain Endocrine: Denies: fatigue Gastrointestinal: Reports: as per HPI, abdominal pain. Denies: nausea, vomiting, diarrhea, constipation Genitourinary: Denies: dysuria Musculoskeletal: Denies: back pain Skin: Denies: rash Neurological: Denies: weakness Psychiatric: Reports: anxiety Past Medical History Past Medical History: Musculoskeletal Disorder Additional Past Medical History / Comment(s): Carotid artery disease, hiatal hernia, peripheral neuropathy, chronic back pain, seasonal environmental ALLERGIES, osteoarthritis History of Any Multi-Drug Resistant Organisms: None Reported Past Surgical History: Back Surgery, Section, Tubal Ligation Additional Past Surgical History / Comment(s): SINUS SURGERY. RIGHT CAROTID ENDARTERECTOMY. Past Anesthesia/Blood Transfusion Reactions: Previous Problems w/ Anesthesia Additional Past Anesthesia/Blood Transfusion Reaction / Comment(s): SHE WAS TOLD IT TOOK ALOT OF MEDICATION TO PUT HER OUT FOR PAIN PROCEDURE. Past Psychological History: Anxiety, Depression Smoking Status: Current every day smoker Past Alcohol Use History: Occasional Past Drug Use History: None Reported - Past Family History Father Additional Family Medical History / Comment(s): Father at age 52 from suicide. Sister(s) Additional Family Medical History / Comment(s): Patient has 2 sisters and 5 br others with no major medical problems. Patient has one son and one daughter with no major medical problems. Mother Family Medical History: Cancer Additional Family Medical History / Comment(s): Mother at age 59 from breast cancer. General Exam Limitations: no limitations General appearance: alert, in no apparent distress Head exam: Present: normocephalic Eye exam: Present: normal appearance Neck exam: Present: normal inspection Respiratory exam: Present: wheezes Cardiovascular Exam: Present: regular rate, normal rhythm Expanded Peripheral pulses: 2+: Radial (R), Radial (L), Dorsalis Pedis (R), Dorsalis Pedis (L) GI/Abdominal exam: Present: soft, normal bowel sounds. Absent: distended, tenderness, guarding, rebound, rigid, pulsatile mass Extremities exam: Present: normal inspection. Absent: pedal edema, calf tenderness Neurological exam: Present: alert Psychiatric exam: Present: normal affect, normal mood Skin exam: Present: normal color Course Vital Signs 08/15/20 08/15/20 08/15/20 12:38 13:02 14:06 Temperature 99.1 F Pulse Rate 103 H 102 H Respiratory 22 20 18 Rate Blood Pressure 246/127 173/96 O2 Sat by Pulse 97 98 Oximetry 08/15/20 08/15/20 08/15/20 15:00 15:30 15:45 Temperature Pulse Rate 100 99 Respiratory 18 18 Rate Blood Pressure 160/100 175/100 184/101 O2 Sat by Pulse 98 Oximetry EKG Findings - EKG Comments: EKG Findings:: Normal sinus rhythm 96. WI 154. QRS 84. QT 358. QTC 452. N ormal axis. LVH with repolarization changes. Medical Decision Making - Medical Decision Making Case was discussed with Dr. Pascual, who will admit covering for Dr. Vázquez. Patient reevaluated and updated. Consults will be placed. Echo ordered. - Lab Data Result diagrams: 08/15/20 13:21 08/15/20 13:21 Lab Results 08/15/20 08/15/20 08/15/20 Range/Units 13:21 13:21 13:21 WBC 11.1 H (3.8-10.6) k/uL RBC 3.70 L (3.80-5.40) m/uL Hgb 11.5 (11.4-16.0) gm/dL Hct 34.1 (34.0-46.0) % MCV 92.4 (80.0-100.0) fL MCH 31.1 (25.0-35.0) pg MCHC 33.7 (31.0-37.0) g/dL RDW 16.7 H (11.5-15.5) % Plt Count 186 (150-450) k/uL MPV 7.9 Neutrophils % 86 % Lymphocytes % 7 % Monocytes % 6 % Eosinophils % 1 % Basophils % 0 % Neutrophils # 9.6 H (1.3-7.7) k/uL Lymphocytes # 0.7 L (1.0-4.8) k/uL Monocytes # 0.7 (0-1.0) k/uL Eosinophils # 0.1 (0-0.7) k/uL Basophils # 0.0 (0-0.2) k/uL Anisocytosis Slight PT 10.0 (9.0-12.0) sec INR 0.9 (<1.2) APTT 23.0 (22.0-30.0) sec D-Dimer 0.68 H (<0.60) mg/L FEU Sodium 139 (137-145) mmol/L Potassium 4.5 (3.5-5.1) mmol/L Chloride 108 H (98-107) mmol/L Carbon Dioxide 19 L (22-30) mmol/L Anion Gap 12 mmol/L BUN 35 H (7-17) mg/dL Creatinine 3.11 H (0.52-1.04) mg/dL Est GFR (CKD-EPI)AfAm 18 (>60 ml/min/1.73 sqM) Est GFR (CKD-EPI)NonAf 16 (>60 ml/min/1.73 sqM) Glucose 106 H (74-99) mg/dL Plasma Lactic Acid Oliver (0.7-2.0) mmol/L Calcium 7.6 L (8.4-10.2) mg/dL Magnesium 1.9 (1.6-2.3) mg/dL Total Bilirubin 0.4 (0.2-1.3) mg/dL AST 23 (14-36) U/L ALT 28 (4-34) U/L Alkaline Phosphatase 96 (38-126) U/L Troponin I (0.000-0.034) ng/mL NT-Pro-B Natriuret Pep pg/mL Total Protein 6.8 (6.3-8.2) g/dL Albumin 3.9 (3.5-5.0) g/dL Amylase 74 (30-110) U/L Lipase 249 (23-300) U/L Coronavirus (PCR) (Not Detectd) 08/15/20 08/15/20 08/15/20 Range/Units 13:21 13:21 13:52 WBC (3.8-10.6) k/uL RBC (3.80-5.40) m/uL Hgb (11.4-16.0) gm/dL Hct (34.0-46.0) % MCV (80.0-100.0) fL MCH (25.0-35.0) pg MCHC (31.0-37.0) g/dL RDW (11.5-15.5) % Plt Count (150-450) k/uL MPV Neutrophils % % Lymphocytes % % Monocytes % % Eosinophils % % Basophils % % Neutrophils # (1.3-7.7) k/uL Lymphocytes # (1.0-4.8) k/uL Monocytes # (0-1.0) k/uL Eosinophils # (0-0.7) k/uL Basophils # (0-0.2) k/uL Anisocytosis PT (9.0-12.0) sec INR (<1.2) APTT (22.0-30.0) sec D-Dimer (<0.60) mg/L FEU Sodium (137-145) mmol/L Potassium (3.5-5.1) mmol/L Chloride (98-107) mmol/L Carbon Dioxide (22-30) mmol/L Anion Gap mmol/L BUN (7-17) mg/dL Creatinine (0.52-1.04) mg/dL Est GFR (CKD-EPI)AfAm (>60 ml/min/1.73 sqM) Est GFR (CKD-EPI)NonAf (>60 ml/min/1.73 sqM) Glucose (74-99) mg/dL Plasma Lactic Acid Oliver (0.7-2.0) mmol/L Calcium (8.4-10.2) mg/dL Magnesium (1.6-2.3) mg/dL Total Bilirubin (0.2-1.3) mg/dL AST (14-36) U/L ALT (4-34) U/L Alkaline Phosphatase (38-126) U/L Troponin I 0.054 H* (0.000-0.034) ng/mL NT-Pro-B Natriuret Pep 45026 pg/mL Total Protein (6.3-8.2) g/dL Albumin (3.5-5.0) g/dL Amylase (30-110) U/L Lipase (23-300) U/L Coronavirus (PCR) Not Detected (Not Detectd) 08/15/20 Range/Units 13:52 WBC (3.8-10.6) k/uL RBC (3.80-5.40) m/uL Hgb (11.4-16.0) gm/dL Hct (34.0-46.0) % MCV (80.0-100.0) fL MCH (25.0-35.0) pg MCHC (31.0-37.0) g/dL RDW (11.5-15.5) % Plt Count (150-450) k/uL MPV Neutrophils % % Lymphocytes % % Monocytes % % Eosinophils % % Basophils % % Neutrophils # (1.3-7.7) k/uL Lymphocytes # (1.0-4.8) k/uL Monocytes # (0-1.0) k/uL Eosinophils # (0-0.7) k/uL Basophils # (0-0.2) k/uL Anisocytosis PT (9.0-12.0) sec INR (<1.2) APTT (22.0-30.0) sec D-Dimer (<0.60) mg/L FEU Sodium (137-145) mmol/L Potassium (3.5-5.1) mmol/L Chloride (98-107) mmol/L Carbon Dioxide (22-30) mmol/L Anion Gap mmol/L BUN (7-17) mg/dL Creatinine (0.52-1.04) mg/dL Est GFR (CKD-EPI)AfAm (>60 ml/min/1.73 sqM) Est GFR (CKD-EPI)NonAf (>60 ml/min/1.73 sqM) Glucose (74-99) mg/dL Plasma Lactic Acid Oliver 1.0 (0.7-2.0) mmol/L Calcium (8.4-10.2) mg/dL Magnesium (1.6-2.3) mg/dL Total Bilirubin (0.2-1.3) mg/dL AST (14-36) U/L ALT (4-34) U/L Alkaline Phosphatase (38-126) U/L Troponin I (0.000-0.034) ng/mL NT-Pro-B Natriuret Pep pg/mL Total Protein (6.3-8.2) g/dL Albumin (3.5-5.0) g/dL Amylase (30-110) U/L Lipase (23-300) U/L Coronavirus (PCR) (Not Detectd) - Radiology Data Radiology results: image reviewed (Chest x-ray shows increased interstitial prominence) Disposition Clinical Impression: Acute renal failure (ARF), Congestive heart failure, Hypertensive urgency Disposition: ADMITTED IP TO THIS [facility] Condition: Serious Is patient prescribed a controlled substance at d/c from ED?: No Referrals: Sukhdeep Vázquez DO [Primary Care Provider] - 1-2 days Decision Time: 16:14
[2020-08-15] MEDS ORDERED: ALBUTEROL HFA INHALER INHALATION STA (13:38)
[2020-08-15 13:47] LABS: Anisocytosis Slight; Basophils % (A) 0 %; Eosinophils # (A) 0.1 k/uL (0-0.7); Eosinophils % (A) 1 %; HCT 34.1 % (34.0-46.0); HGB 11.5 gm/dL (11.4-16.0); Lymphocytes # (A) 0.7 k/uL (1.0-4.8); Lymphocytes % (A) 7 %; MCH 31.1 pg (25.0-35.0); MCHC 33.7 g/dL (31.0-37.0); MCV 92.4 fL (80.0-100.0); Mean Platelet Volume 7.9; Monocytes # (A) 0.7 k/uL (0-1.0); Monocytes % (A) 6 %; Neutrophils # (A) 9.6 k/uL (1.3-7.7); Neutrophils % (A) 86 %; Platelet Count 186 k/uL (150-450); RDW 16.7 % (11.5-15.5); WBC 11.1 k/uL (3.8-10.6)
--- NOTE | 2020-08-15 13:55 | XR ---
EXAMINATION TYPE: XR chest 2V DATE OF EXAM: 08/15/2020 COMPARISON: Chest x-ray 10/13/2018 HISTORY: Difficulty breathing TECHNIQUE: Frontal and lateral views of the chest are obtained. FINDINGS: There is no focal air space opacity, pleural effusion, or pneumothorax seen. The cardiac silhouette size is within normal limits. Question some mild prominence of interstitium. There are ove rlying artifacts. The osseous structures are intact. IMPRESSION: Question some mild interstitial prominence
[2020-08-15 13:59] LABS: INR 0.9 (<1.2)
[2020-08-15 14:04] LABS: Potassium 4.5 mmol/L (3.5-5.1)
[2020-08-15 14:05] LABS: Albumin 3.9 g/dL (3.5-5.0); Calcium 7.6 mg/dL (8.4-10.2); Magnesium 1.9 mg/dL (1.6-2.3); Total Bilirubin 0.4 mg/dL (0.2-1.3); Total Protein 6.8 g/dL (6.3-8.2)
[2020-08-15 14:10] LABS: D-Dimer 0.68 mg/L FEU (<0.60)
[2020-08-15] MEDS ORDERED: FUROSEMIDE 10 MG/ML 4 ML VIAL IV STA ×2 (15:47→19:22)
[2020-08-15] MEDS ORDERED: NITROGLYCERIN OINT 1 INCH/GM PACKET TOPICAL STA (15:47)
[2020-08-15] MEDS ORDERED: NALOXONE 0.4 MG/ML 1 ML VIAL IV PRN (16:02)
[2020-08-15] MEDS ORDERED: ASPIRIN 325 MG TAB PO STA (16:03)
[2020-08-15] MEDS ORDERED: SODIUM CHLORIDE 0.9% 1,000 ML IV SCH (16:15)
--- NOTE | 2020-08-15 16:18 | CT ---
EXAMINATION TYPE: CT abdomen pelvis wo con DATE OF EXAM: 08/15/2020 COMPARISON: CT 01/08/2015 HISTORY: abdominal pain CT DLP: 984.2 mGycm Automated exposure control for dose reduction was used. TECHNIQUE: Helical acquisition of images from the lung bases through the pelvis. FINDINGS: Lack of intravenous contrast compromises sensitivity of the exam. There is a hiatal hernia present which is more pronounced than on prior exam. LUNG BASES: Question some mosaic perfusion at the lung bases, no pleural pericardial effusion AORTA: No significant abnormality is appreciated. LIVER/GB: No significant abnormality is appreciated. Gallbladder is contracted PANCREAS: No significant abnormality is seen. SPLEEN: No significant abnormality is seen. ADRENALS: No significant abnormality is seen. KIDNEYS: Left kidney is atrophic REPRODUCTIVE ORGANS: No significant abnormality is seen. URINARY BLADDER: No significant abnormality is seen. BOWEL: Some colonic wall thickening is noted in the rectosigmoid colon which may be due to lack of d istention or muscular hypertrophy, mucosal lesion not excluded. No evident appendicitis. Small bowel folds show some areas of wall thickening in the upper abdomen FREE AIR: No Free Air is visible. ASCITES: None visible. PELVIC ADENOPATHY: None visualized. RETROPERITONEAL ADENOPATHY: No Retroperitoneal Adenopathy visible. OSSEOUS STRUCTURES: Postop changes status post posterior lumbar fusion L4-5 S1 again noted, there is some artifact present, mild spinal curvature. IMPRESSION: NONCONTRAST EXAM. CORRELATE FOR POSSIBLE ENTERITIS, FINDINGS IN THE COLON IS DESCRIBED
[2020-08-15] MEDS ORDERED: LORazepam 2 MG/ML INJ IV STA (18:07)
--- NOTE | 2020-08-15 18:12 | NM ---
EXAMINATION TYPE: NM pul vent and perfuse DATE OF EXAM: 08/15/2020 COMPARISON: None HISTORY: Elevated d-dimer TECHNIQUE: Utilizing inhalation of 34.8 mCi Tc 99m DTPA aerosol and intravenous injection of 4.7 mCi of Tc 99m MAA, ventilation and perfusion images are acquired post injection in multiple projections. FINDINGS: There are bilateral matching segmental and subsegmental sized ventilation and perfusion defects in tess th lower lobes and more on the right side. Ventilation abnormalities slightly worse than the perfusio n abnormality. IMPRESSION: There is evidence of moderately severe airway disease. There is intermediate probability of pulmonary embolism.
[2020-08-15] MEDS ORDERED: hydrALAZINE HCL 20 MG/ML 1 ML VIAL IVP PRN (20:38)
[2020-08-15] MEDS ORDERED: ENOXAPARIN 100 MG/ML SYRINGE SQ SCH (21:00)
[2020-08-15] MEDS ORDERED: FUROSEMIDE 10 MG/ML 4 ML VIAL IV SCH (22:00)
[2020-08-15] MEDS ORDERED: NITROGLYCERIN OINT 1 INCH/GM PACKET TOPICAL SCH (22:00)
[2020-08-16] MEDS ORDERED: FUROSEMIDE 10 MG/ML 4 ML VIAL IV SCH
[2020-08-16 00:05] VITALS: TEMP 98.9
[2020-08-16 02:00] LABS: Appearance,Urine Clear (Clear); Bacteria,Urine Occasional /hpf; Bilirubin,Urine Negative (Negative); Blood,Urine Negative (Negative); Color,Urine Colorless; Glucose,Urine (UA) Negative (Negative); Ketones,Urine Negative (Negative); Leukocyte Esterase,Urine Moderate (Negative); Mucus,Urine Rare /hpf; Nitrite,Urine Negative (Negative); PH, Urine 5.5 (5.0-8.0); Protein,Urine Negative (Negative); RBC,Urine 1 /hpf (0-5); Specific Gravity,Urine 1.006 (1.001-1.035); Urobilinogen,Urine <2.0 mg/dL (<2.0); WBC,Urine 18 /hpf (0-5)
[2020-08-16] MEDS ORDERED: ALPRAZolam 0.25 MG TAB PO STA (02:09)
[2020-08-16] MEDS: ACETAMINOPHEN TAB 325 MG TAB PO PRN ×2 (02:21→07:06)
[2020-08-16 03:47] VITALS: BP 152/90; PULSE 86; RESP 19
[2020-08-16] MEDS ORDERED: ASPIRIN 325 MG TAB PO SCH (12:00)
--- NOTE | 2020-08-16 17:31 | ECHOF ---
Referral Reason:Heart Failure MEASUREMENTS -------- HEIGHT: 170.2 cm WEIGHT: 95.7 kg BP: IVSd: 1.4 cm (0.6 - 1.1) LVIDd: 4.0 cm (3.9 - 5.3) LVPWd: 1.6 cm (0.6 - 1.1) IVSs: 1.7 cm LVIDs: 3.2 cm LVPWs: 2.1 cm LAESV Index (A-L): 37.78 ml/m Ao Diam: 3.1 cm (2.0 - 3.7) AV Cusp: 1.6 cm (1.5 - 2.6) LA Diam: 3.6 cm (2.7 - 3.8) MV EXCURSION: 7.636 mm (> 18.000) MV EF SLOPE: 41 mm/s (70 - 150) EPSS: 1.0 cm MV E Jose: 1.21 m/s MV DecT: 166 ms MV A Jose: 0.75 m/s MV E/A Ratio: 1.62 AV maxP.48 mmHg AV meanP.79 mmHg RAP: 5.00 mmHg RVSP: 36.41 mmHg FINDINGS -------- This was a technically adequate study. The left ventricular size is normal. There is moderate concentric left ventricular hypertrophy. O verall left ventricular systolic function is normal with, an EF between 55 - 60 %. Increased LAP. G rade 2 Diastolic Dysfuntion. The right ventricle is normal in size. LA is moderately dilated 34-39 ml/m2 The right atrial size is normal. Aortic valve is trileaflet and is mildly thickened. There is mild aortic valve sclerosis. Peak/me an gradient across the Aortic Valve is 13.48mmHg / 8.79mmHg. The mitral valve is normal. The mitral valve leaflets are mildly thickened. Mild mitral regurgita tion is present. The tricuspid valve appears structurally normal. Mild tricuspid regurgitation present. There is b orderline pulmonary artery hypertension. The right ventricular systolic pressure, as measured by Do ppler, is 36.41mmHg. There is no pulmonic regurgitation present. The aortic root size is normal. Normal inferior vena cava with normal inspiratory collapse consistent with estimated right atrial pre ssure of 5 mmHg. There is no pericardial effusion. CONCLUSIONS -------- 1. The left ventricular size is normal. 2. There is moderate concentric left ventricular hypertrophy. 3. Overall left ventricular systolic function is normal with, an EF between 55 - 60 %. 4. Increased LAP. Grade 2 Diastolic Dysfuntion. 5. LA is moderately dilated 34-39 ml/m2 6. Aortic valve is trileaflet and is mildly thickened. 7. There is mild aortic valve sclerosis. 8. Peak/mean gradient across the Aortic Valve is 13.48mmHg / 8.79mmHg. 9. The mitral valve leaflets are mildly thickened. 10. Mild mitral regurgitation is present. 11. Mild tricuspid regurgitation present. 12. There is borderline pulmonary artery hypertension. 13. The right ventricular systolic pressure, as measured by Doppler, is 36.41mmHg. 14. There is no pericardial effusion. FSR: Jennifer Wang RDCS
[2020-08-17] MEDS ORDERED: ASPIRIN 81 MG PO SCH (09:00)
== END 2020-08-16 08:49 | disposition left against medical advice (07) | DRG 305 ==
LOC: EC 12:37 → 3SCARD 16:02
PROVIDERS: ADMIT Family Medicine; ATTEND Family Medicine
DX: I16.0 Hypertensive urgency (principal); N17.9 Acute kidney failure, unspecified; I11.0 Hypertensive heart disease with heart failure; F17.200 Nicotine dependence, unspecified, uncomplicated; I50.9 Heart failure, unspecified
CPT/HCPCS: 36415; 71046; 74176; 78582; 80053; 81001; 82150; 83605; 83690; 83735; 83880; 84484; 85025; 85379; 85610; 85730; 87077; 87086; 87186; 87635; 93005; 93306; 94640; 94760

== ENCOUNTER 2020-08-16 09:23 | Inpatient (IN) | payer MEDICARE ==
[2020-08-16] MEDS ORDERED: LORazepam 2 MG/ML INJ IV STA (09:43)
[2020-08-16] MEDS ORDERED: hydrALAZINE HCL 20 MG/ML 1 ML VIAL IVP STA (09:44)
[2020-08-16 10:16] LABS: Anisocytosis Slight; Basophils % (A) 0 %; Eosinophils # (A) 0.2 k/uL (0-0.7); Eosinophils % (A) 2 %; HGB 11.3 gm/dL (11.4-16.0); Lymphocytes # (A) 1.4 k/uL (1.0-4.8); Lymphocytes % (A) 15 %; MCH 30.7 pg (25.0-35.0); MCHC 33.2 g/dL (31.0-37.0); MCV 92.6 fL (80.0-100.0); Mean Platelet Volume 7.5; Monocytes # (A) 0.8 k/uL (0-1.0); Monocytes % (A) 9 %; Neutrophils # (A) 6.6 k/uL (1.3-7.7); Neutrophils % (A) 73 %; Platelet Count 194 k/uL (150-450); RBC 3.67 m/uL (3.80-5.40); RDW 16.7 % (11.5-15.5)
[2020-08-16 10:24] LABS: Albumin 3.8 g/dL (3.5-5.0); Calcium 7.3 mg/dL (8.4-10.2); Magnesium 1.7 mg/dL (1.6-2.3); Partial Thromboplastin Time 26.9 sec (22.0-30.0); Potassium 3.4 mmol/L (3.5-5.1); Prothrombin Time 10.5 sec (9.0-12.0); Total Bilirubin 0.5 mg/dL (0.2-1.3); Total Protein 6.5 g/dL (6.3-8.2)
--- NOTE | 2020-08-16 10:32 | XR ---
EXAMINATION TYPE: XR chest 2V DATE OF EXAM: 08/16/2020 COMPARISON: Chest x-ray 08/15/2020, CT 08/15/2020 HISTORY: Chest pain TECHNIQUE: Frontal and lateral views of the chest are obtained. FINDINGS: There is no focal air space opacity, pleural effusion, or pneumothorax seen. The cardiac silhouette size is stable. The osseous structures are intact. There are overlying leads. Mosaic per fusion seen on prior CT at the lung bases is not appreciated on plain film and can be seen with COPD. IMPRESSION: No acute cardiopulmonary process.
[2020-08-16] MEDS ORDERED: HEPARIN SODIUM,PORCINE 10,000 UNIT/ML 1 ML VIAL IV ONE (10:34)
--- NOTE | 2020-08-16 10:58 | ED ---
General Adult HPI - General Chief complaint: Headache Stated complaint: Hypertensive Time Seen by Provider: 08/16/20 09:25 Source: patient, RN notes reviewed, old records reviewed Mode of arrival: ambulatory Limitations: no limitations - History of Present Illness Initial comments: This is a 60-year-old female presents emergency Department complaining of having high blood pressure and having fluid on her lungs. Patient states she was admitted yesterday and left this morning and never actually left the hospital but was sent back down to the emergency department. Patient states she is super anxious and she is worried because of her high blood pressure in the fluid on her lungs. Patient denies any chest pain or palpitations. Patient states she does feel short of breath especially when she moves. Patient states she left AMA from the floor because she was so anxious. Patient also complains of a headache but states that she had the headache yesterday and all night long. - Related Data Home Medications Medication Instructions Recorded Confirmed Gabapentin [Neurontin] 400 mg PO TID PRN 10/13/18 08/15/20 Omeprazole [PriLOSEC] 20 mg PO DAILY 10/13/18 08/15/20 diphenhydrAMINE HCL [Benadryl] 25 mg PO DAILY PRN 08/15/20 08/15/20 predniSONE See Taper PO DAILY 08/15/20 08/15/20 Allergies Allergy/AdvReac Type Severity Reaction Status Date / Time amoxicillin AdvReac Nausea & Verified 08/16/20 09:25 Vomiting Review of Systems ROS Statement: Those systems with pertinent positive or pertinent negative responses have been documented in the HPI. ROS Other: All systems not noted in ROS Statement are negative. Past Medical History Past Medical History: Musculoskeletal Disorder Additional Past Medical History / Comment(s): Carotid artery disease, hiatal hernia, peripheral neuropathy, chronic back pain, seasonal environmental ALLERGIES, osteoarthritis History of Any Multi-Drug Resistant Organisms: None Reported Past Surgical History: Back Surgery, Section, Tubal Ligation Additional Past Surgical History / Comment(s): SINUS SURGERY. RIGHT CAROTID ENDARTERECTOMY. Past Anesthesia/Blood Transfusion Reactions: Previous Problems w/ Anesthesia Additional Past Anesthesia/Blood Transfusion Reaction / Comment(s): SHE WAS TOLD IT TOOK ALOT OF MEDICATION TO PUT HER OUT FOR PAIN PROCEDURE. Past Psychological History: Anxiety, Depression Smoking Status: Current every day smoker Past Alcohol Use History: Occasional Past Drug Use History: None Reported - Past Family History Father Additional Family Medical History / Comment(s): Father at age 52 from suicide. Sister(s) Additional Family Medical History / Comment(s): Patient has 2 sisters and 5 brothers with no major medical problems. Patient has one son and one daughter with no major medical problems. Mother Family Medical History: Cancer Additional Family Medical History / Comment(s): Mother at age 59 from breast cancer. General Exam - General Exam Comments Initial Comments: GENERAL: Patient is well-developed and well-nourished. Patient is nontoxic and well- hydrated and is in mild distress. ENT: Neck is soft and supple. No significant lymphadenopathy is noted. Oropharynx is clear. Moist mucous membranes. Neck has full range of motion without eliciting any pain. EYES: The sclera were anicteric and conjunctiva were pink and moist. Extraocular movements were intact and pupils were equal round and reactive to light. Eyelids were unremarkable. PULMONARY: Unlabored respirations. Good breath sounds bilaterally. No audible rales rhonchi or wheezing was noted. CARDIOVASCULAR: There is a regular rate and rhythm without any murmurs gallops or rubs. ABDOMEN: Soft and nontender with normal bowel sounds. SKIN: Skin is clear with no lesions or rashes and otherwise unremarkable. NEUROLOGIC: Patient is alert and oriented x3. Cranial nerves II through XII are grossly intact. Motor and sensory are also intact. Normal speech, volume and content. Symmetrical smile. MUSCULOSKELETAL: Normal extremities with adequate strength and full range of motion. LYMPHATICS: No significant lymphadenopathy is noted PSYCHIATRIC: Patient is mildly anxious Limitations: no limitations Course Vital Signs 08/16/20 08/16/20 08/16/20 09:25 09:53 10:07 Temperature 98.8 F Pulse Rate 94 87 89 Respiratory 18 16 16 Rate Blood Pressure 150/92 171/97 160/80 O2 Sat by Pulse 96 98 95 Oximetry 08/16/20 10:43 Temperature Pulse Rate 90 Respiratory 16 Rate Blood Pressure 117/83 O2 Sat by Pulse 93 L Oximetry Procedures - [place] Protocol (Time Out) Nurse: Yissel Johnson Medical Decision Making - Medical Decision Making Chest x-ray shows no acute abnormality. EKG shows normal sinus rhythm at 94 bpm NM interval 150 QRS is 90 QT interval 376 QTC is 470. Patient's EKG shows some T-wave inversions in leads II, III, and F aVF. Because the patient's intermittent. Suspicion for PE on the VQ scan and the fact that the patient has a troponin of 0.9 patient will be started on high-dose heparin. I spoke with Dr. Martínez he agreed to admit the patient admitted the patient I consult to nephrology for the acute renal failure and cardiology for the non- STEMI - Lab Data Result diagrams: 08/16/20 09:39 08/16/20 09:39 Lab Results 08/16/20 08/16/20 08/16/20 Range/Units 09:39 09:39 09:39 WBC 9.0 (3.8-10.6) k/uL RBC 3.67 L (3.80-5.40) m/uL Hgb 11.3 L (11.4-16.0) gm/dL Hct 34.0 (34.0-46.0) % MCV 92.6 (80.0-100.0) fL MCH 30.7 (25.0-35.0) pg MCHC 33.2 (31.0-37.0) g/dL RDW 16.7 H (11.5-15.5) % Plt Count 194 (150-450) k/uL MPV 7.5 Neutrophils % 73 % Lymphocytes % 15 % Monocytes % 9 % Eosinophils % 2 % Basophils % 0 % Neutrophils # 6.6 (1.3-7.7) k/uL Lymphocytes # 1.4 (1.0-4.8) k/uL Monocytes # 0.8 (0-1.0) k/uL Eosinophils # 0.2 (0-0.7) k/uL Basophils # 0.0 (0-0.2) k/uL Anisocytosis Slight PT 10.5 (9.0-12.0) sec INR 1.0 (<1.2) APTT 26.9 (22.0-30.0) sec Sodium 139 (137-145) mmol/L Potassium 3.4 L (3.5-5.1) mmol/L Chloride 103 (98-107) mmol/L Carbon Dioxide 24 (22-30) mmol/L Anion Gap 12 mmol/L BUN 39 H (7-17) mg/dL Creatinine 3.41 H (0.52-1.04) mg/dL Est GFR (CKD-EPI)AfAm 16 (>60 ml/min/1.73 sqM) Est GFR (CKD-EPI)NonAf 14 (>60 ml/min/1.73 sqM) Glucose 151 H (74-99) mg/dL Calcium 7.3 L (8.4-10.2) mg/dL Magnesium 1.7 (1.6-2.3) mg/dL Total Bilirubin 0.5 (0.2-1.3) mg/dL AST 20 (14-36) U/L ALT 23 (4-34) U/L Alkaline Phosphatase 83 (38-126) U/L Troponin I (0.000-0.034) ng/mL NT-Pro-B Natriuret Pep pg/mL Total Protein 6.5 (6.3-8.2) g/dL Albumin 3.8 (3.5-5.0) g/dL 08/16/20 08/16/20 Range/Units 09:39 09:39 WBC (3.8-10.6) k/uL RBC (3.80-5.40) m/uL Hgb (11.4-16.0) gm/dL Hct (34.0-46.0) % MCV (80.0-100.0) fL MCH (25.0-35.0) pg MCHC (31.0-37.0) g/dL RDW (11.5-15.5) % Plt Count (150-450) k/uL MPV Neutrophils % % Lymphocytes % % Monocytes % % Eosinophils % % Basophils % % Neutrophils # (1.3-7.7) k/uL Lymphocytes # (1.0-4.8) k/uL Monocytes # (0-1.0) k/uL Eosinophils # (0-0.7) k/uL Basophils # (0-0.2) k/uL Anisocytosis PT (9.0-12.0) sec INR (<1.2) APTT (22.0-30.0) sec Sodium (137-145) mmol/L Potassium (3.5-5.1) mmol/L Chloride (98-107) mmol/L Carbon Dioxide (22-30) mmol/L Anion Gap mmol/L BUN (7-17) mg/dL Creatinine (0.52-1.04) mg/dL Est GFR (CKD-EPI)AfAm (>60 ml/min/1.73 sqM) Est GFR (CKD-EPI)NonAf (>60 ml/min/1.73 sqM) Glucose (74-99) mg/dL Calcium (8.4-10.2) mg/dL Magnesium (1.6-2.3) mg/dL Total Bilirubin (0.2-1.3) mg/dL AST (14-36) U/L ALT (4-34) U/L Alkaline Phosphatase (38-126) U/L Troponin I 0.915 H* (0.000-0.034) ng/mL NT-Pro-B Natriuret Pep 11003 pg/mL Total Protein (6.3-8.2) g/dL Albumin (3.5-5.0) g/dL Critical Care Time Critical Care Time: Yes Total Critical Care Time: 35 Disposition Clinical Impression: Acute renal failure, Non-STEMI (non-ST elevated myocardial infarction), Pulmonary embolism Disposition: ADMITTED IP TO THIS HOSP Referrals: Sukhdeep Vázquez DO [Primary Care Provider] - 1-2 days Time of Disposition: 11:00
[2020-08-16] MEDS ORDERED: SODIUM CHLORIDE 0.9% 1,000 ML IV ONE (11:01)
[2020-08-16] MEDS: HEPARIN SOD,PORK IN 0.45% NACL 25,000 UNIT in 0.45% NACL 1 250ML.BAG IV SCH (11:18)
--- NOTE | 2020-08-16 12:06 | US ---
EXAMINATION TYPE: US venous doppler duplex LE DATE OF EXAM: 08/16/2020 11:46 AM COMPARISON: NONE CLINICAL HISTORY: Leg swelling, PE. Leg pain, PE SIDE PERFORMED: Bilateral TECHNIQUE: The lower extremity deep venous system is examined utilizing real time linear array sonog bobbi with graded compression, doppler sonography and color-flow sonography. VESSELS IMAGED: Common Femoral Vein Deep Femoral Vein Greater Saphenous Vein * Femoral Vein Popliteal Vein Small Saphenous Vein * Proximal Calf Veins (* superficial vessels) There is normal flow, compressibility, vascular waveforms. Right Leg: Negative for DVT Left Leg: Negative for DVT Incidental finding: At level of RIGHT distal FACILITY ADMINISTRATOR/Proximal Femoral artery there appears to be an art erial occlusion that extends to distal femoral artery, right popliteal artery appears patent IMPRESSION: No evident deep venous thrombosis at or above the knees.
[2020-08-16] MEDS ORDERED: GABAPENTIN 400 MG CAP PO PRN (12:14)
[2020-08-16] MEDS ORDERED: hydrOXYzine HCL 10 MG TAB PO PRN (12:14)
[2020-08-16] MEDS ORDERED: cloNIDine HCL 0.1 MG TAB PO PRN (12:18)
--- NOTE | 2020-08-16 12:27 | P.HPIM ---
History of Present Illness H&P Date: 08/16/20 History of present illness This is a 60-year-old patient of Dr. Vázquez was not seen him in the last 2 years. She past medical history includes cardiac artery disease, hiatal hernia, peripheral neuropathy, chronic back pain, a agoriaphobia. Patient presented to the emergency room last night with dyspnea and abdominal discomfort. She has chronic dyspnea that worsened over the evening. She is a chronic smoker the having abdominal discomfort for several weeks. The discomfort happens mostly when she was sitting and moving to a standing position or just standing. She was admitted to inpatient status where she decided she wanted to leave and signed out AMA. Patient went to the [facility] and her children convinced her to return where she was sent back to the emergency room for evaluation. Her second visit to the emergency room patient was found to have a headache with elevated blood pressure, elevated troponin, an indeterminate VQ scan At this time patient is found resting in the emergency room in no acute distress. Patient is tearful and anxious. Patient unsure as to what is going on. Patient states that she does not have any abdominal pain at this time continues to have shortness of breath and some chest pain. Patient was scheduled to see Dr. Velásquez on 09/04. Abdominal CT impression: Noncontrast exam, correlate for possible enteritis, finding of the colon shows some colonic wall thickening in the rectosigmoid colon which may be due to the lack of distention or muscular atrophy, because the lesion not excluded. No evidence of appendicitis. Small bowel full shows some areas of wall thickening in the upper abdomen. Venous Doppler Impression: no evidence of deep venous thrombosis at or above the knees bilateral. Review Of Systems: Constitutional: No fever, no chills, no night sweats. No weight change. Rep orts weakness and fatigue, no lethargy. No daytime sleepiness. EENT: Repports headache. No blurred vision or double vision, no loss of vision. No loss of Hearing, no ringing in the ears, no dizziness. No nasal drainage or congestion. No epistaxis. No sore throat. Lungs: Reports shortness of breath,no cough, no sputum production. No wheezing. Cardiovascular: No chest pain, Reports lower extremity edema more on the right. No palpitations. No paroxysmal nocturnal dyspnea. No orthopnea. No lightheadedness or dizziness. No syncopal episodes. Abdominal: Reports abdominal discomfort - resolved. No nausea, vomiting. no diarrhea. No constipation. No bloody or tarry stools. no loss of appetite. Genitourinary: No dysuria, increased frequency, urgency. No urinary retention. Musculoskeletal: No myalgias. No muscle weakness, no gait dysfunction, no frequent falls. No back pain. No neck pain. Integumentary: No wounds, no lesions. No rash or pruritus. No unusual bruising. No change in hair or nails. Neurologic: No aphasia. No facial droop. No change in mentation. No head injury. No headache. No paralysis. No paresthesia. Psychiatric: repoors depression. Reports anxiety. No mood swings. Endocrine: No abnormal blood sugars. No weight change. No excessive sweating or thirst. Social history: Patient is , patient lives alone, she smokes one pack of cigarettes a day since 18, denies any illicit drug use or marijuana, denies any alcohol use, denies any use of durable medical supplies including cane or walker Family history: Patient is , 2 children who are both healthy, 6 siblings who she does not have contact with but thinks they're all healthy, her mother at 49 from cervical cancer, father at 50 due to suicide Physical examination General Appearance: Alert, cooperative, anxious and tearfulno acute respiratory distress, This is a 60 year old Caucasin femal appears stated age. Neck HEENT: Supple, no lymphadenopathy, no thyroid enlargement, no carotid bruit s. Lungs: Clear to auscultation without crackles or wheezes no rhonchi, no deformity. Chest Wall: Chest wall normal expansion with deep inspiration no tenderness and no deformity was found on exam, no costochondral pain or discomfort. Heart: Regular rate and rhythm, S1, S2 normal, no murmur, rub or gallop. Back: Symmetric, no curvature, ROM normal, no CVA tenderness. Abdomen: Soft, non-tender, no rebound or rigidity, no hepatosplenomegaly. Extremities: 3+ edema to bilateral lower extremities, Extremities atraumatic, no cyanosis Pulses: 2+ and symmetric. Skin: Skin color, texture, tugor normal, no rashes or lesions. Neurologic: Alert oriented x3 cranial nerves II through XII intact, no motor deficit, no abnormal balance or gait Assessment and plan 1. Acute dyspnea secondary to systolic versus diastolic acute over chronic congestive heart failure. Lasix 40 mg twice a day, metoprolol 100 mg twice a day, clonidine 0.1 mg daily as needed for systolic blood pressure greater than 160, hydralazine 50 mg twice a day, consult cardiology, echocardiogram ordered. 2. Urgent versus emergent hypertension. Hydralazine, clonidine 3. Acute kidney injury new-onset stage III. Ultrasound of the kidney, avoid nephrotoxin, consult nephrology, daily weight. 4. Mild exacerbation of COPD. We will hold off on any steroids at this time. Pulmicort albuterol updrafts. 5. Non-STEMI OK with elevated troponins. Repeat CK and troponins. 6. Possible PE/DVT related to indeterminate VQ scan. Venous Doppler results noted above. Continue with heparin drip. 7. Hyperlipidemia. Statin 20 mg by mouth 8. Chronic back pain. Continue gabapentin 9. GI prophylaxis Pepcid 20 mg daily 10. DVT prophylaxis. Heparin drip Status: Full code Patient will be admitted to the hospital for minimum of 2 nights day Impression and plan of care have been directed as dictated by the signing physician. Diane Crespo nurse practitioner acting as scribe for signing physician. Past Medical History Past Medical History: Musculoskeletal Disorder Additional Past Medical History / Comment(s): Carotid artery disease, hiatal hernia, peripheral neuropathy, chronic back pain, seasonal environmental ALL ERGIES, osteoarthritis History of Any Multi-Drug Resistant Organisms: None Reported Past Surgical History: Back Surgery, Section, Tubal Ligation Additional Past Surgical History / Comment(s): SINUS SURGERY. RIGHT CAROTID ENDARTERECTOMY. Past Anesthesia/Blood Transfusion Reactions: Previous Problems w/ Anesthesia Additional Past Anesthesia/Blood Transfusion Reaction / Comment(s): SHE WAS TOLD IT TOOK ALOT OF MEDICATION TO PUT HER OUT FOR PAIN PROCEDURE. Past Psychological History: Anxiety, Depression Additional Psychological History / Comment(s): NO MEDS. Smoking Status: Current every day smoker Past Alcohol Use History: Occasional Additional Past Alcohol Use History / Comment(s): SMOKES 1 PPD OR LESS, SMOKING SINCE 18 YEARS OLD. Patient denies any marijuana or illicit drug use. She denies any alcohol use. She does not use a cane or walker for ambulation. Past Drug Use History: None Reported Additional Drug Use History / Comment(s): STATES SHE TRIED "ZBD", WHICH IS A FORM OF HEMP-CURRENTLY NOT TAKING, SHE IS GOING TO SPEAK TO THE PAIN CLINIC DR ABOUT IT. - Past Family History Father Additional Family Medical History / Comment(s): Father at age 52 from suicide. Sister(s) Additional Family Medical History / Comment(s): Patient has 2 sisters and 5 brothers with no major medical problems. Patient has one son and one daughter with no major medical problems. Mother Family Medical History: Cancer Additional Family Medical History / Comment(s): Mother at age 59 from breast cancer. Medications and Allergies Home Medications Medication Instructions Recorded Confirmed Type Gabapentin [Neurontin] 400 mg PO TID PRN 10/13/18 08/16/20 History Omeprazole [PriLOSEC] 20 mg PO DAILY 10/13/18 08/16/20 History diphenhydrAMINE HCL [Benadryl] 25 mg PO DAILY PRN 08/15/20 08/16/20 History predniSONE See Taper PO DAILY 08/15/20 08/16/20 History Hydrocortisone Cream 1 applic TOPICAL BID PRN 08/16/20 08/16/20 History [Hydrocortisone 2.5% Cream] hydrOXYzine HCL [Atarax] 10 mg PO 5XD PRN 08/16/20 08/16/20 History Allergies Allergy/AdvReac Type Severity Reaction Status Date / Time amoxicillin AdvReac Nausea & Verified 08/16/20 10:50 Vomiting Physical Exam Vitals: Vital Signs Temp Pulse Resp BP BP Pulse Ox 08/16/20 12:15 16 161/84 94 L 08/16/20 10:43 90 16 117/83 93 L 08/16/20 10:07 89 16 160/80 95 08/16/20 09:53 87 16 171/97 98 08/16/20 09:25 98.8 F 94 18 150/92 96 Intake and Output 08/15/20 08/16/20 08/16/20 22:59 06:59 14:59 Other: Weight 98.43 kg Results CBC & Chem 7: 08/16/20 09:39 08/16/20 09:39 Labs: Abnormal Lab Results - Last 24 Hours (Table) 08/16/20 08/16/20 08/16/20 Range/Units 09:39 09:39 09:39 RBC 3.67 L (3.80-5.40) m/uL Hgb 11.3 L (11.4-16.0) gm/dL RDW 16.7 H (11.5-15.5) % Potassium 3.4 L (3.5-5.1) mmol/L BUN 39 H (7-17) mg/dL Creatinine 3.41 H (0.52-1.04) mg/dL Glucose 151 H (74-99) mg/dL Calcium 7.3 L (8.4-10.2) mg/dL Troponin I 0.915 H* (0.000-0.034) ng/mL
--- NOTE | 2020-08-16 13:45 | US ---
EXAMINATION TYPE: US kidneys/renal and bladder DATE OF EXAM: 08/16/2020 COMPARISON: Recent CT dated 08/15/2020 CLINICAL HISTORY: acute kidney injury. Abnormal labs EXAM MEASUREMENTS: Right Kidney: 10.2 x 4.3 x 4.7 cm Left Kidney: 6.6 x 4.0 x 2.6 cm Please note, left kidney visualized 1st due to pt's position Right Kidney: No hydronephrosis or mass, no pathologic calcification Left Kidney: Atrophic as visualized on CT, Cyst mid= 1.3 cm Bladder: Anechoic Bilateral Jets seen: No Cortical medullary differentiation reduced in the left kidney, small cortical cyst is present, cortic al echogenicity is increased in the right kidney IMPRESSION: Atrophic left kidney. Findings consistent with medical renal disease
[2020-08-16] MEDS: ALPRAZolam 0.25 MG TAB PO PRN ×2 (14:28→20:37)
[2020-08-16] MEDS: ACETAMINOPHEN TAB 500 MG TAB PO PRN ×2 (14:28→20:37)
[2020-08-16] MEDS: NICOTINE 14MG/24HR PATCH TRANSDERM SCH (14:48)
[2020-08-16] MEDS: ALBUTEROL NEBULIZED 2.5 MG/3 ML INHALATION SCH ×2 (15:20→19:34)
[2020-08-16] MEDS: BUDESONIDE 0.25 MG/2 ML NEBU INHALATION SCH (19:34)
[2020-08-16] MEDS: hydrALAZINE HCL 50 MG TAB PO SCH (20:37)
[2020-08-16] MEDS: ATORVASTATIN 20 MG TAB PO SCH (20:37)
[2020-08-16] MEDS: METOPROLOL TARTRATE 50 MG TAB PO SCH (20:37)
[2020-08-16] MEDS: FUROSEMIDE 10 MG/ML 4 ML VIAL IV SCH (20:38)
[2020-08-17] MEDS: HEPARIN SOD,PORK IN 0.45% NACL 25,000 UNIT in 0.45% NACL 1 250ML.BAG IV SCH ×2 (03:21→11:14)
[2020-08-17] MEDS: METOPROLOL TARTRATE 50 MG TAB PO SCH ×2 (07:47→19:52)
[2020-08-17] MEDS: FUROSEMIDE 10 MG/ML 4 ML VIAL IV SCH ×2 (07:47→19:53)
[2020-08-17] MEDS: ALPRAZolam 0.25 MG TAB PO PRN ×3 (07:47→19:56)
[2020-08-17] MEDS: ISOSORBIDE MONONITRATE ER 30 MG TAB.ER.24H PO SCH (07:48)
[2020-08-17] MEDS: hydrALAZINE HCL 50 MG TAB PO SCH ×2 (07:48→19:52)
[2020-08-17] MEDS: ACETAMINOPHEN TAB 500 MG TAB PO PRN ×3 (07:48→19:53)
[2020-08-17] MEDS: FAMOTIDINE 20 MG/2 ML VIAL IV SCH (07:48)
[2020-08-17] MEDS: NICOTINE 14MG/24HR PATCH TRANSDERM SCH (07:49)
[2020-08-17] MEDS: ALBUTEROL NEBULIZED 2.5 MG/3 ML INHALATION SCH ×3 (08:34→19:58)
[2020-08-17] MEDS: BUDESONIDE 0.25 MG/2 ML NEBU INHALATION SCH ×2 (08:34→19:58)
[2020-08-17 09:39] LABS: Anisocytosis Slight; Basophils % (A) 0 %; Eosinophils # (A) 0.2 k/uL (0-0.7); Eosinophils % (A) 2 %; HCT 34.9 % (34.0-46.0); HGB 11.2 gm/dL (11.4-16.0); Lymphocytes % (A) 12 %; MCH 30.1 pg (25.0-35.0); MCHC 32.1 g/dL (31.0-37.0); MCV 93.7 fL (80.0-100.0); Mean Platelet Volume 7.7; Monocytes # (A) 0.8 k/uL (0-1.0); Monocytes % (A) 9 %; Neutrophils # (A) 6.7 k/uL (1.3-7.7); Neutrophils % (A) 76 %; Platelet Count 175 k/uL (150-450); RBC 3.72 m/uL (3.80-5.40); RDW 16.6 % (11.5-15.5); WBC 8.9 k/uL (3.8-10.6)
[2020-08-17 09:57] LABS: Albumin 3.6 g/dL (3.5-5.0); Calcium 7.4 mg/dL (8.4-10.2); Potassium 3.7 mmol/L (3.5-5.1); Total Bilirubin 0.6 mg/dL (0.2-1.3); Total Protein 6.3 g/dL (6.3-8.2)
--- NOTE | 2020-08-17 10:30 | P.CNPUL ---
History of Present Illness Consult date: 08/17/20 Reason for consult: dyspnea History of present illness: This is a 60-year-old female patient, presented to the emergency department yesterday because of worsening shortness of breath and abdominal discomfort. She has known to have chronic dyspnea and it was worse yesterday and for that reason she came into the ED. She has history of chronic smoking. She did have exertional dyspnea. She was in the burst department for the same complaint on 08/15/2020. At that time, she had a workup which included a VQ scan that showed moderate to severe airway disease and there is intermediate probability for pulmonary embolism. CAT scan of the abdomen that was done without contrast showed questionable enteritis and some colonic wall thickening at the level of the rectosigmoid colon. No evidence of any other acute abnormalities. The lung bases were essentially showing some limited mosaic perfusion in the lung bases without any major abnormalities. The echocardiogram showed a preserved LV function with an ejection fraction of 55-60%. No significant valvular abnormalities. There was mild aortic sclerosis. PA pressure was minimally elev ated. Her blood work for now showing a white cell count of 8.9 with a hemoglobin of 11.2. Platelet counts are normal. The patient has a BUN of 38 with a creatinine of 3.39 probably related to chronic kidney disease. The rest of the electrodes are all within normal limits, liver function since of normal, troponin was 0.9 and the proBNP level was 32,001 100 on 08/16/2020. She is currently on IV heparin. Cardiac rhythm is sinus and the patient had voltage criteria for LVH without any acute ischemic changes. Doppler of the lower extremity was also done that showed no evidence of any DVT. Currently the patient is subjected to diuretics and she is receiving Lasix 40 mg every 12 hours pH is on oxygen at room air and she has a pulse ox of 94%. Morning temperature was 100.6 and this is the first brachytherapy that were seen during this current admission. Review of Systems Constitutional: No fever, no chills, no night sweats. No weight change. Reports weakness and fatigue, no lethargy. No daytime sleepiness. EENT: Repports headache. No blurred vision or double vision, no loss of vision. No loss of Hearing, no ringing in the ears, no dizziness. No nasal drainage or congestion. No epistaxis. No sore throat. Lungs: Reports shortness of breath,no cough, no sputum production. No wheezing. Cardiovascular: No chest pain, Reports lower extremity edema more on the right. No palpitations. No paroxysmal nocturnal dyspnea. No orthopnea. No lightheadedness or dizziness. No syncopal episodes. Abdominal: Reports abdominal discomfort - resolved. No nausea, vomiting. no diarrhea. No constipation. No bloody or tarry stools. no loss of appetite. Genitourinary: No dysuria, increased frequency, urgency. No urinary retention. Musculoskeletal: No myalgias. No muscle weakness, no gait dysfunction, no frequent falls. No back pain. No neck pain. Integumentary: No wounds, no lesions. No rash or pruritus. No unusual bruising. No change in hair or nails. Neurologic: No aphasia. No facial droop. No change in mentation. No head injury. No headache. No paralysis. No paresthesia. Psychiatric: repoors depression. Reports anxiety. No mood swings. Endocrine: No abnormal blood sugars. No weight change. No excessive sweating or thirst. Past Medical History Past Medical History: Musculoskeletal Disorder Additional Past Medical History / Comment(s): Carotid artery disease, hiatal hernia, peripheral neuropathy, chronic back pain, seasonal environmental ALLERGIES, osteoarthritis History of Any Multi-Drug Resistant Organisms: None Reported Past Surgical History: Back Surgery, Section, Tubal Ligation Additional Past Surgical History / Comment(s): SINUS SURGERY. RIGHT CAROTID ENDARTERECTOMY. Past Anesthesia/Blood Transfusion Reactions: Previous Problems w/ Anesthesia Additional Past Anesthesia/Blood Transfusion Reaction / Comment(s): SHE WAS TOLD IT TOOK ALOT OF MEDICATION TO PUT HER OUT FOR PAIN PROCEDURE. Past Psychological History: Anxiety, Depression Additional Psychological History / Comment(s): NO MEDS. Smoking Status: Current every day smoker Past Alcohol Use History: Occasional Additional Past Alcohol Use History / Comment(s): SMOKES 1 PPD OR LESS, SMOKING SINCE 18 YEARS OLD. Patient denies any marijuana or illicit drug use. She denies any alcohol use. She does not use a cane or walker for ambulation. Past Drug Use History: None Reported Additional Drug Use History / Comment(s): STATES SHE TRIED "ZBD", WHICH IS A FORM OF HEMP-CURRENTLY NOT TAKING, SHE IS GOING TO SPEAK TO THE PAIN CLINIC DR ABOUT IT. - Past Family History Father Additional Family Medical History / Comment(s): Father at age 52 from suicide. Sister(s) Additional Family Medical History / Comment(s): Patient has 2 sisters and 5 brothers with no major medical problems. Patient has one son and one daughter with no major medical problems. Mother Family Medical History: Cancer Additional Family Medical History / Comment(s): Mother at age 59 from breast cancer. Medications and Allergies Home Medications Medication Instructions Recorded Confirmed Type Gabapentin [Neurontin] 400 mg PO TID PRN 10/13/18 08/16/20 History Omeprazole [PriLOSEC] 20 mg PO DAILY 10/13/18 08/16/20 History diphenhydrAMINE HCL [Benadryl] 25 mg PO DAILY PRN 08/15/20 08/16/20 History predniSONE See Taper PO DAILY 08/15/20 08/16/20 History Hydrocortisone Cream 1 applic TOPICAL BID PRN 08/16/20 08/16/20 History [Hydrocortisone 2.5% Cream] hydrOXYzine HCL [Atarax] 10 mg PO 5XD PRN 08/16/20 08/16/20 History Allergies Allergy/AdvReac Type Severity Reaction Status Date / Time amoxicillin AdvReac Nausea & Verified 08/16/20 10:50 Vomiting Physical Exam Vitals: Vital Signs Temp Pulse Pulse Resp BP BP Pulse Ox 08/17/20 08:46 78 08/17/20 08:34 76 08/17/20 08:00 100.6 F H 76 16 142/71 94 L 08/17/20 04:00 97.9 F 76 16 133/66 95 08/17/20 01:20 73 20 08/16/20 23:14 73 20 153/73 95 08/16/20 20:00 98.2 F 92 24 168/81 96 08/16/20 15:44 86 16 127/73 96 08/16/20 15:20 89 08/16/20 12:25 91 16 161/84 94 L 08/16/20 12:15 16 161/84 94 L 08/16/20 10:43 90 16 117/83 93 L Intake and Output 08/16/20 08/17/20 08/17/20 22:59 06:59 14:59 Intake Total 718.704 101.879 69.494 Output Total 500 500 Balance 718.704 -398.121 -430.506 Intake: IV 600 Sodium Chloride 0.9% 1, 600 000 ml @ 75 mls/hr IV . [id number] ONE Rx#:[id number] Intake, IV Titration 118.704 101.879 69.494 Amount Heparin Sod,Pork in 0.45% 118.704 101.879 69.494 NaCl 25,000 unit In 0.45 % NaCl 1 250ml.bag @ 18 UNITS/KG/HR 17.717 mls/hr IV .Q14H7M [facility] Rx#: [id number] Output: Urine 500 500 Other: Voiding Method Toilet Toilet Toilet # Voids 2 2 Weight 98.1 kg The patient appeared well nourished and normally developed. Vital signs as documented. Head exam is unremarkable. No scleral icterus or corneal arcus noted. Neck is without jugular venous distension, thyromegaly, or carotid bruits. Carotid upstrokes are brisk bilaterally. Lungs are clear to auscultation and percussion. Cardiac exam reveals the PMI to be normally sized and situated. Rhythm is regular. First and second heart sounds normal. No murmurs, rubs or gallops. Abdominal exam reveals normal bowel sounds, no masses, no organomegaly and no aortic enlargement. Extremities are nonedematous and both femoral and pedal pulses are normal. No swelling. No erythema. From the psychiatric standpoint the patient is anxious.Examination of the skin revealed no evidence of significant rashes, suspicious appearing nevi or other concerning lesions.Neurologically, the patient is awake and alert and the patient does not have any focal neurological deficit. Cranial nerves are essentially intact. Results - Laboratory Findings CBC and BMP: 08/17/20 07:50 08/17/20 07:50 PT/INR, D-dimer PT 10.5 sec (9.0-12.0) 08/16/20 09:39 INR 1.0 (<1.2) 08/16/20 09:39 Abnormal lab findings: Abnormal Labs 08/16/20 08/16/20 08/16/20 09:39 09:39 09:39 RBC 3.67 L Hgb 11.3 L RDW 16.7 H APTT Sodium Potassium 3.4 L BUN 39 H Creatinine 3.41 H Glucose 151 H Calcium 7.3 L Troponin I 0.915 H* 08/16/20 08/16/20 08/16/20 17:14 19:26 23:58 RBC Hgb RDW APTT 165.5 H* 91.2 H 156.1 H* Sodium Potassium BUN Creatinine Glucose Calcium Troponin I 08/17/20 08/17/20 08/17/20 07:50 07:50 07:50 RBC 3.72 L Hgb 11.2 L RDW 16.6 H APTT 98.7 H Sodium 136 L Potassium BUN 38 H Creatinine 3.39 H Glucose 116 H Calcium 7.4 L Troponin I - Diagnostic Findings Chest x-ray: image reviewed Assessment and Plan Plan: 1 Dyspnea, chronic, currently on room air oxygen with a pulse of 94%. The patient has COPD secondary to chronic smoking. No signs of an acute exacerbation. No signs of any decompensated heart failure. No signs of any pulmonary infection for now. 2 acute on chronic kidney disease and the patient has taken significant amount of nonsteroidals in the past and the patient is a smoker and has shrunken kidneys consistent with chronic kidney disease. 3 possible non-STEMI with minimal troponin leak, no acute ischemic EKG changes and echocardiogram showing preserved LV function with some mild diastolic heart failure. 4 hypertension , currently under better BP control 5 Carotid artery disease with a previous endarterectomy 6 peripheral neuropathy 7 hiatal hernia 8 chronic back pain 9 hypothyroidism 7 hyperlipidemia Plan Smoking cessation counseling Follow pulmonary standpoint, she will obviously need an outpatient function test to assess the severity of her COPD. I think probably she has a moderate to severe disease at this point in time and she needs to quit smoking. We'll utilize albuterol rescue inhaler on as needed basis at a time of discharge. No signs of any decompensated heart failure. The need for diuretics will be left up to nephrology, despite the elevated proBNP level, the patient has no signs of any fluid overload at this point in time. Cardiology to comment on the troponin leak and the need for IV heparin. I reassured the patient.
--- NOTE | 2020-08-17 11:14 | P.PN ---
Subjective Progress Note Date: 08/17/20 History of present illness This is a 60-year-old patient of Dr. Vázquez was not seen him in the last 2 years. She past medical history includes cardiac artery disease, hiatal hernia, peripheral neuropathy, chronic back pain, a agoriaphobia. Patient presented to the emergency room last night with dyspnea and abdominal discomfort. She has chronic dyspnea that worsened over the evening. She is a chronic smoker the having abdominal discomfort for several weeks. The discomfort happens mostly when she was sitting and moving to a standing position or just standing. She was admitted to inpatient status where she decided she wanted to leave and signed out AMA. Patient went to the [facility] and her children convinced her to return where she was sent back to the emergency room for evaluation. Her second visit to the emergency room patient was found to have a headache with elevated blood pressure, elevated troponin, an indeterminate VQ scan At this time patient is found resting in the emergency room in no acute distress. Patient is tearful and anxious. Patient unsure as to what is going on. Patient states that she does not have any abdominal pain at this time idania nues to have shortness of breath and some chest pain. Patient was scheduled to see Dr. Velásquez on 09/04. Abdominal CT impression: Noncontrast exam, correlate for possible enteritis, finding of the colon shows some colonic wall thickening in the rectosigmoid colon which may be due to the lack of distention or muscular atrophy, because the lesion not excluded. No evidence of appendicitis. Small bowel full shows some areas of wall thickening in the upper abdomen. Venous Doppler Impression: no evidence of deep venous thrombosis at or above the knees bilateral. 08/17: She has found resting comfortably in bed without any acute distress. Patient respirations are nonlabored and shallow. Patient appears less anxious compared to yesterday. Her breathing she states is better today compared to yesterday. Discussed in length the importance of smoking cessation and following up with her primary care provider. And has family by the bedside and questions were answered. Temperature 100.6 yesterday, pulse rate 76, respirations 16, blood pressure 142/71 pulse oxing 94% on room air. WBC 8.9, hemoglobin 11.2, platelets 175, potassium 3.7, BUN elevated at 38, creatinine 3.39, BNP 64011. Renal ultrasound shows atrophic left kidney. Review Of Systems: Constitutional: No fever, no chills, no night sweats. No weight change. Reports weakness and fatigue, no lethargy. No daytime sleepiness. EENT: Reports headache. No blurred vision or double vision, no loss of vision. No loss of Hearing, no ringing in the ears, no dizziness. No nasal drainage or congestion. No epistaxis. No sore throat. Lungs: Reports shortness of breath- improved,no cough, no sputum production. No wheezing. Cardiovascular: No chest pain, Reports lower extremity edema more on the right. No palpitations. No paroxysmal nocturnal dyspnea. No orthopnea. No lightheadedness or dizziness. No syncopal episodes. Abdominal: Reports abdominal discomfort - resolved. No nausea, vomiting. no diarrhea. No constipation. No bloody or tarry stools. no loss of appetite. Genitourinary: No dysuria, increased frequency, urgency. No urinary retention. Musculoskeletal: No myalgias. No muscle weakness, no gait dysfunction, no frequent falls. No back pain. No neck pain. Integumentary: No wounds, no lesions. No rash or pruritus. No unusual bruising. No change in hair or nails. Neurologic: No aphasia. No facial droop. No change in mentation. No head injury. No headache. No paralysis. No paresthesia. Psychiatric: repoors depression. Reports anxiety. No mood swings. Endocrine: No abnormal blood sugars. No weight change. No excessive sweating or thirst. Physical examination General Appearance: Alert, cooperative, less anxious,no acute respiratory distress, This is a 60 year old Caucasin female appears stated age. Neck HEENT: Supple, no lymphadenopathy, no thyroid enlargement, no carotid bruits. Lungs: Clear to auscultation without crackles or wheezes no rhonchi, no deformity. Chest Wall: Chest wall normal expansion with deep inspiration no tenderness and no deformity was found on exam, no costochondral pain or discomfort. Heart: Regular rate and rhythm, S1, S2 normal, no murmur, rub or gallop. Back: Symmetric, no curvature, ROM normal, no CVA tenderness. Abdomen: Soft, non-tender, no rebound or rigidity, no hepatosplenomegaly. Extremities: 2+ edema to bilateral lower extremities, Extremities atraumatic, no cyanosis Pulses: 2+ and symmetric. Skin: Skin color, texture, tugor normal, no rashes or lesions. Neurologic: Alert oriented x3 cranial nerves II through XII intact, no motor deficit, no abnormal balance or gait Assessment and plan 1. Acute dyspnea secondary to systolic versus diastolic acute over chronic congestive heart failure. Lasix 40 mg twice a day, metoprolol 100 mg twice a day, clonidine 0.1 mg daily as needed for systolic blood pressure greater than 160, hydralazine 50 mg twice a day, consult cardiology, echocardiogram ordered. Pulmonology consult appreciated. 2. Urgent versus emergent hypertension. Hydralazine, clonidine 3. Acute kidney injury new-onset stage III. Ultrasound of the kidney impre ssion noted above, avoid nephrotoxin, consult nephrology, daily weight. 4. Mild exacerbation of COPD. We will hold off on any steroids at this time. Pulmicort albuterol updrafts. 5. Possible Non-STEMI IA with elevated troponins. Repeat CK and troponins. 6. Possible PE/DVT related to indeterminate VQ scan. Venous Doppler results noted above. Continue with heparin drip. 7. Hyperlipidemia. Statin 20 mg by mouth 8. Chronic back pain. Continue gabapentin 9. Tobacco dependence. Nicotine patch applied. Discussed smoking cessation 10. GI prophylaxis Pepcid 20 mg daily 11. DVT prophylaxis. Heparin drip Status: Full code Patient will be admitted to the hospital for minimum of 2 nights day Impression and plan of care have been directed as dictated by the signing physician. Diane Crespo nurse practitioner acting as scribe for signing physician. Objective - Vital Signs Vital signs: Vital Signs Temp 100.6 F H 08/17/20 08:00 Pulse 78 08/17/20 08:46 Resp 16 08/17/20 08:00 BP 142/71 08/17/20 08:00 Pulse Ox 94 L 08/17/20 08:00 Intake & Output 08/16/20 08/17/20 08/17/20 18:59 06:59 18:59 Intake Total 718.704 101.879 69.494 Output Total 500 500 Balance 718.704 -398.121 -430.506 Weight 98.43 kg 98.1 kg Intake: IV 600 Sodium Chloride 0.9% 1, 600 000 ml @ 75 mls/hr IV . [id number] [facility] Rx#:[id number] Intake, IV Titration 118.704 101.879 69.494 Amount Heparin Sod,Pork in 0.45% 118.704 101.879 69.494 NaCl 25,000 unit In 0.45 % NaCl 1 250ml.bag @ 18 UNITS/KG/HR 17.717 mls/hr IV .Q14H7M [facility] Rx#: [id number] Output: Urine 500 500 Other: Voiding Method Toilet Toilet # Voids 2 2 - Labs CBC & Chem 7: 08/17/20 07:50 08/17/20 07:50 Labs: Abnormal Lab Results - Last 24 Hours (Table) 08/16/20 08/16/20 08/16/20 Range/Units 17:14 19:26 23:58 RBC (3.80-5.40) m/uL Hgb (11.4-16.0) gm/dL RDW (11.5-15.5) % APTT 165.5 H* 91.2 H 156.1 H* (22.0-30.0) sec Sodium (137-145) mmol/L BUN (7-17) mg/dL Creatinine (0.52-1.04) mg/dL Glucose (74-99) mg/dL Calcium (8.4-10.2) mg/dL 08/17/20 08/17/20 08/17/20 Range/Units 07:50 07:50 07:50 RBC 3.72 L (3.80-5.40) m/uL Hgb 11.2 L (11.4-16.0) gm/dL RDW 16.6 H (11.5-15.5) % APTT 98.7 H (22.0-30.0) sec Sodium 136 L (137-145) mmol/L BUN 38 H (7-17) mg/dL Creatinine 3.39 H (0.52-1.04) mg/dL Glucose 116 H (74-99) mg/dL Calcium 7.4 L (8.4-10.2) mg/dL
--- NOTE | 2020-08-17 11:21 | P.NPCON ---
History of Present Illness - Reason for Consult Consult date: 08/17/20 acute renal failure - Chief Complaint Shortness of breath - History of Present Illness 60-year-old female coming to the hospital with the above complaints. She has a long history of cigarette smoking and COPD, developed worsening shortness of breath. She has underlying chronic kidney disease stage III secondary to ischemic nephropathy with a baseline creatinine of 1.2-1.5 MG per DL in October 2018 . She presented with acute kidney injury with a creatinine of 3.11 on the day of admission and 3.41 yesterday and 3.39 MG per DL today. Her proBNP is 3200, chest x-ray no acute pulmonary vascular congestion. She admits making good urine. She has no previous nephrology care. Ultrasound kidneys shrunken left kidney. She has history of NSAID use with ibuprofen 4-6 tablets every single day for many years. Denies any nausea vomiting diarrhea. No history of diabetes. She has history of hypertension but does not use any medications. Review of Systems Constitutional: Reports as per HPI Past Medical History Past Medical History: Musculoskeletal Disorder Additional Past Medical History / Comment(s): Carotid artery disease, hiatal hernia, peripheral neuropathy, chronic back pain, seasonal environmental ALLERGIES, osteoarthritis History of Any Multi-Drug Resistant Organisms: None Reported Past Surgical History: Back Surgery, Section, Tubal Ligation Additional Past Surgical History / Comment(s): SINUS SURGERY. RIGHT CAROTID ENDARTERECTOMY. Past Anesthesia/Blood Transfusion Reactions: Previous Problems w/ Anesthesia Additional Past Anesthesia/Blood Transfusion Reaction / Comment(s): SHE WAS TOLD IT TOOK ALOT OF MEDICATION TO PUT HER OUT FOR PAIN PROCEDURE. Past Psychological History: Anxiety, Depression Additional Psychological History / Comment(s): NO MEDS. Smoking Status: Current every day smoker Past Alcohol Use History: Occasional Additional Past Alcohol Use History / Comment(s): SMOKES 1 PPD OR LESS, SMOKING SINCE 18 YEARS OLD. Patient denies any marijuana or illicit drug use. She denies any alcohol use. She does not use a cane or walker for ambulation. Past Drug Use History: None Reported Additional Drug Use History / Comment(s): STATES SHE TRIED "ZBD", WHICH IS A FORM OF HEMP-CURRENTLY NOT TAKING, SHE IS GOING TO SPEAK TO THE PAIN CLINIC DR ABOUT IT. - Past Family History Father Additional Family Medical History / Comment(s): Father at age 52 from suicide. Sister(s) Additional Family Medical History / Comment(s): Patient has 2 sisters and 5 brothers with no major medical problems. Patient has one son and one daughter with no major medical problems. Mother Family Medical History: Cancer Additional Family Medical History / Comment(s): Mother at age 59 from breast cancer. Medications and Allergies Home Medications Medication Instructions Recorded Confirmed Type Gabapentin [Neurontin] 400 mg PO TID PRN 10/13/18 08/16/20 History Omeprazole [PriLOSEC] 20 mg PO DAILY 10/13/18 08/16/20 History diphenhydrAMINE HCL [Benadryl] 25 mg PO DAILY PRN 08/15/20 08/16/20 History predniSONE See Taper PO DAILY 08/15/20 08/16/20 History Hydrocortisone Cream 1 applic TOPICAL BID PRN 08/16/20 08/16/20 History [Hydrocortisone 2.5% Cream] hydrOXYzine HCL [Atarax] 10 mg PO 5XD PRN 08/16/20 08/16/20 History Allergies Allergy/AdvReac Type Severity Reaction Status Date / Time amoxicillin AdvReac Nausea & Verified 08/16/20 10:50 Vomiting Physical Exam Vitals: Vital Signs Temp Pulse Pulse Resp BP Pulse Ox 08/17/20 11:10 101.7 F H 74 16 114/50 94 L 08/17/20 08:46 78 08/17/20 08:34 76 08/17/20 08:00 100.6 F H 76 16 142/71 94 L 08/17/20 04:00 97.9 F 76 16 133/66 95 08/17/20 01:20 73 20 08/16/20 23:14 73 20 153/73 95 08/16/20 20:00 98.2 F 92 24 168/81 96 08/16/20 15:44 86 16 127/73 96 08/16/20 15:20 89 08/16/20 12:25 91 16 161/84 94 L 08/16/20 12:15 16 161/84 94 L Intake and Output 08/16/20 08/17/20 08/17/20 22:59 06:59 14:59 Intake Total 718.704 101.879 69.494 Output Total 500 500 Balance 718.704 -398.121 -430.506 Intake: IV 600 Sodium Chloride 0.9% 1, 600 000 ml @ 75 mls/hr IV . [id number] ONE Rx#:[id number] Intake, IV Titration 118.704 101.879 69.494 Amount Heparin Sod,Pork in 0.45% 118.704 101.879 69.494 NaCl 25,000 unit In 0.45 % NaCl 1 250ml.bag @ 18 UNITS/KG/HR 17.717 mls/hr IV .Q14H7M [facility] Rx#: [id number] Output: Urine 500 500 Other: Voiding Method Toilet Toilet Toilet # Voids 2 2 Weight 98.1 kg No acute distress S1-S2 heard Decreased breath sounds Abdomen soft No edema Results - Lab Results Most recent lab results Calcium 7.4 mg/dL (8.4-10.2) L 08/17/20 07:50 Magnesium 1.7 mg/dL (1.6-2.3) 08/16/20 09:39 08/17/20 07:50 08/17/20 07:50 Assessment and Plan Assessment: #1 acute kidney injury suspect progressive chronic kidney disease/cardiorenal syndrome #2 chronic kidney disease stage III secondary to ischemic nephropathy with a baseline creatinine of 1.2-1.5 MG per DL in October 2018. #3 shrunken left kidney secondary to atherosclerotic/ischemic disease, secondary to chronic smoking #4 COPD #5 metabolic alkalosis #6 anemia with chronic kidney disease Plan: #1 renal function stable since yesterday. Continue Lasix 40 mg IV twice a day. #2 check urine analysis, urine electrolytes. #3 currently on antihypertensive regimen with hydralazine and metoprolol. Maintain systolic blood pressure goal between 120-140. #4 no acute intervention needed for left renal kidney unless she develops recurrent flash pulmonary edema. #5 avoid nephrotoxic agents and hypotensive episodes. #6 educated about not using NSAIDs.
[2020-08-17] MEDS ORDERED: AZITHROMYCIN 500 MG in SODIUM CHLORIDE 0.9% 250 ML IVPB SCH (14:00)
--- NOTE | 2020-08-17 15:23 | P.CRDCN ---
History of Present Illness Consult date: 08/17/20 History of present illness: HISTORY OF PRESENT ILLNESS: This is a 60-year-old female with a past medical history significant for anxiety, depression, carotid stenosis with previous right carotid endarterectomy and nicotine dependence. Patient does not follow with a monotype operator. We have been asked to see the patient in consultation for shortness of breath. Patient originally presented to the hospital on 08/15/2020 secondary to shortness of b reath. She was admitted to the cardiac stepdown unit however she left yesterday AMA. Patient states that her family made her come back to the emergency room. Patient states she has been expressing shortness of breath for the past several months. She states the shortness of breath is only with exertion. She denies redness of breath at rest. She denies any chest pain or pressure. She reports a history of smoking and states she smokes 1-2 packs of cigarettes a day. She denies any previous cardiac history. She denies having a stress test or cardiac catheterization in the past. EKG reveals sinus mechanism with T-wave inversions in inferior leads Chest xray no acute process Laboratory data: WBC 8.9. Hemoglobin 11.2. Platelet count 175. Sodium 136. Potassium 3.7. BUN 38. Creatinine 3.39. Magnesium 1.7. BNP 32,100. Troponin 0.012. 0.054. 0.915. Current home cardiac medications include none VQ scan performed revealed intermediate probability of pulmonary embolism Venous Doppler: Negative for DVT Echocardiogram revealed ejection fraction 55-60%, mild mitral regurgitation, and mild tricuspid regurgitation REVIEW OF SYSTEMS: At the time of my exam: CONSTITUTIONAL: Denies fever or chills. HEENT: Denies blurred vision, vision changes, or eye pain. Denies hemoptysis CARDIOVASCULAR: Denies chest pain. Denies orthopnea. Denies PND. Denies palpitations RESPIRATORY: Denies shortness of breath. GASTROINTESTINAL: Denies abdominal pain. Denies nausea or vomiting. HEMATOLOGIC: Denies bleeding disorders. GENITOURINARY: Denies any blood in urine. SKIN: Denies pruitis. Denies rash. PHYSICAL EXAM: VITAL SIGNS: Reviewed. GENERAL: Well-developed in no acute distress. HEENT: Head is normocephalic. Pupils are equal, round. Sclerae anicteric. Mucous membranes of the mouth are moist. Neck supple. No JVD or thyromegaly LUNGS: Respirations even and unlabored. Lungs diminished bilaterally. HEART: Regular rate and rhythm. S1 and S2 heard. ABDOMEN: Soft. Nondistended. Nontender. EXTREMITIES: Normal range of motion. No clubbing or cyanosis. Peripheral pulses intact. Trace bilateral lower extremity edema NEUROLOGIC: Awake and alert. Oriented x 3. ASSESSMENT: Exertional shortness of breath Acute diastolic heart failure, EF 55-60%, BNP 32,100 Acute renal failure Abnormal troponins, possible NSTEMI, however may be secondary to acute renal failure and heart failure Hypertension Carotid stenosis with previous right carotid endarterectomy Possible PE, VQ scan revealing intermediate probability of PE COPD Nicotine dependence PLAN: Recommend smoking cessation 2-D echo obtained and reviewed Continue IV Lasix 40 mg every 12 hours Monitor kidney function. Nephrology following Daily weights Accurate I&O Pulmonary following Patient with abnormal troponins and T-wave inversions in inferior leads. Patient without complaints of chest pain. She is currently on a heparin infusion secondary to possible PE. Will continue IV heparin from a cardiac standpoint Patient will require ischemic workup when she is medically stable Further recommendations pending patient's course Nurse practitioner note has been reviewed by physician. Signing provider agrees with the documented findings, assessment, and plan of care. Past Medical History Past Medical History: Musculoskeletal Disorder Additional Past Medical History / Comment(s): Carotid artery disease, hiatal hernia, peripheral neuropathy, chronic back pain, seasonal environmental ALLERGIES, osteoarthritis History of Any Multi-Drug Resistant Organisms: None Reported Past Surgical History: Back Surgery, Section, Tubal Ligation Additional Past Surgical History / Comment(s): SINUS SURGERY. RIGHT CAROTID ENDARTERECTOMY. Past Anesthesia/Blood Transfusion Reactions: Previous Problems w/ Anesthesia Additional Past Anesthesia/Blood Transfusion Reaction / Comment(s): SHE WAS TOLD IT TOOK ALOT OF MEDICATION TO PUT HER OUT FOR PAIN PROCEDURE. Past Psychological History: Anxiety, Depression Additional Psychological History / Comment(s): NO MEDS. Smoking Status: Current every day smoker Past Alcohol Use History: Occasional Additional Past Alcohol Use History / Comment(s): SMOKES 1 PPD OR LESS, SMOKING SINCE 18 YEARS OLD. Patient denies any marijuana or illicit drug use. She denies any alcohol use. She does not use a cane or walker for ambulation. Past Drug Use History: None Reported Additional Drug Use History / Comment(s): STATES SHE TRIED "ZBD", WHICH IS A FORM OF HEMP-CURRENTLY NOT TAKING, SHE IS GOING TO SPEAK TO THE PAIN CLINIC DR ABOUT IT. - Past Family History Father Additional Family Medical History / Comment(s): Father at age 52 from suicide. Sister(s) Additional Family Medical History / Comment(s): Patient has 2 sisters and 5 brothers with no major medical problems. Patient has one son and one daughter with no major medical problems. Mother Family Medical History: Cancer Additional Family Medical History / Comment(s): Mother at age 59 from breast cancer. Medications and Allergies Home Medications Medication Instructions Recorded Confirmed Type Gabapentin [Neurontin] 400 mg PO TID PRN 10/13/18 08/16/20 History Omeprazole [PriLOSEC] 20 mg PO DAILY 10/13/18 08/16/20 History diphenhydrAMINE HCL [Benadryl] 25 mg PO DAILY PRN 08/15/20 08/16/20 History predniSONE See Taper PO DAILY 08/15/20 08/16/20 History Hydrocortisone Cream 1 applic TOPICAL BID PRN 08/16/20 08/16/20 History [Hydrocortisone 2.5% Cream] hydrOXYzine HCL [Atarax] 10 mg PO 5XD PRN 08/16/20 08/16/20 History Allergies Allergy/AdvReac Type Severity Reaction Status Date / Time amoxicillin AdvReac Nausea & Verified 08/16/20 10:50 Vomiting Physical Exam Vitals: Vital Signs Temp Pulse Pulse Resp BP Pulse Ox 08/17/20 13:57 16 08/17/20 12:24 100.8 F H 08/17/20 12:05 72 08/17/20 11:55 72 08/17/20 11:10 101.7 F H 74 16 114/50 94 L 08/17/20 08:46 78 08/17/20 08:34 76 08/17/20 08:00 100.6 F H 76 16 142/71 94 L 08/17/20 04:00 97.9 F 76 16 133/66 95 08/17/20 01:20 73 20 08/16/20 23:14 73 20 153/73 95 08/16/20 20:00 98.2 F 92 24 168/81 96 08/16/20 15:44 86 16 127/73 96 08/16/20 15:20 89 Intake and Output 08/17/20 08/17/20 08/17/20 06:59 14:59 22:59 Intake Total 101.879 938.058 Output Total 500 500 Balance -398.121 438.058 Intake: IV 300 Sodium Chloride 0.9% 1, 300 000 ml @ 75 mls/hr IV . [id number] [facility] Rx#:[id number] Intake, IV Titration 101.879 78.058 Amount Heparin Sod,Pork in 0.45% 101.879 78.058 NaCl 25,000 unit In 0.45 % NaCl 1 250ml.bag @ 18 UNITS/KG/HR 17.717 mls/hr IV .Q14H7M [facility] Rx#: [id number] Oral 560 Output: Urine 500 500 Other: Voiding Method Toilet Toilet # Voids 2 3 Weight 98.1 kg Results 08/17/20 07:50 08/17/20 07:50 Cardiac Enzymes 08/17/20 Range/Units 07:50 AST 19 (14-36) U/L Coagulation 08/16/20 08/16/20 08/16/20 Range/Units 17:14 19:26 23:58 APTT 165.5 H* 91.2 H 156.1 H* (22.0-30.0) sec 08/17/20 Range/Units 07:50 APTT 98.7 H (22.0-30.0) sec CBC 08/17/20 Range/Units 07:50 WBC 8.9 (3.8-10.6) k/uL RBC 3.72 L (3.80-5.40) m/uL Hgb 11.2 L (11.4-16.0) gm/dL Hct 34.9 (34.0-46.0) % Plt Count 175 (150-450) k/uL Comprehensive Metabolic Panel 08/17/20 Range/Units 07:50 Sodium 136 L (137-145) mmol/L Potassium 3.7 (3.5-5.1) mmol/L Chloride 100 (98-107) mmol/L Carbon Dioxide 25 (22-30) mmol/L BUN 38 H (7-17) mg/dL Creatinine 3.39 H (0.52-1.04) mg/dL Glucose 116 H (74-99) mg/dL Calcium 7.4 L (8.4-10.2) mg/dL AST 19 (14-36) U/L ALT 19 (4-34) U/L Alkaline Phosphatase 83 (38-126) U/L Total Protein 6.3 (6.3-8.2) g/dL Albumin 3.6 (3.5-5.0) g/dL Current Medications Generic Name Dose Route Start Last Admin Trade Name Freq PRN Reason Stop Dose Admin Acetaminophen 500 mg 08/16/20 14:10 08/17/20 13:44 Acetaminophen Tab 500 Mg Tab PO 500 mg Q6HR PRN Administration Fever and/ or Pain Albuterol Sulfate 2.5 mg 08/16/20 13:00 08/17/20 11:55 Albuterol Nebulized 2.5 Mg/3 Ml INHALATION 2.5 mg RT-TID [facility] Administration Alprazolam 0.25 mg 08/16/20 14:10 08/17/20 13:44 Alprazolam 0.25 Mg Tab PO 0.25 mg TID PRN Administration Anxiety Atorvastatin Calcium 20 mg 08/16/20 21:00 08/16/20 20:37 Atorvastatin 20 Mg Tab PO 20 mg HS [facility] Administration Budesonide 0.25 mg 08/16/20 20:00 08/17/20 08:34 Budesonide 0.25 Mg/2 Ml Nebu INHALATION 0.25 mg RT-BID [facility] Administration Clonidine 0.1 mg 08/16/20 12:18 Clonidine Hcl 0.1 Mg Tab PO DAILY PRN Blood Pressure - High Famotidine 20 mg 08/17/20 09:00 08/17/20 07:48 Famotidine 20 Mg/2 Ml Vial IV 20 mg DAILY [facility] Administration Furosemide 40 mg 08/16/20 21:00 08/17/20 07:47 Furosemide 10 Mg/Ml 4 Ml Vial IV 40 mg Q12HR [facility] Administration Gabapentin 400 mg 08/16/20 12:14 Gabapentin 400 Mg Cap PO TID PRN Pain Hydralazine HCl 50 mg 08/16/20 21:00 08/17/20 07:48 Hydralazine Hcl 50 Mg Tab PO 50 mg BID [facility] Administration Hydroxyzine HCl 10 mg 08/16/20 12:14 Hydroxyzine Hcl 10 Mg Tab PO 5XD PRN Itching Heparin Sodium/Sodium Chloride 250 mls @ 17.717 mls/hr 08/16/20 10:45 08/17/20 11:14 25,000 unit/ Sodium Chloride IV 9 units/kg/hr .Q14H7M [facility] 8.859 mls/hr Administration Protocol 18 UNITS/KG/HR Ceftriaxone Sodium 1 gm/ 50 mls @ 100 mls/hr 08/17/20 16:00 Sodium Chloride IVPB Q24H [facility] Azithromycin 500 mg/ Sodium 250 mls @ 250 mls/hr 08/17/20 15:30 Chloride IVPB Q24H [facility] Isosorbide Mononitrate 30 mg 08/17/20 09:00 08/17/20 07:48 Isosorbide Mononitrate Er 30 Mg Tab.Er.24h PO 30 mg DAILY [facility] Administration Metoprolol Tartrate 100 mg 08/16/20 21:00 08/17/20 07:47 Metoprolol Tartrate 50 Mg Tab PO 100 mg BID [facility] Administration Nicotine 1 patch 08/16/20 14:30 08/17/20 07:49 Nicotine 14mg/24hr Patch TRANSDERM 1 patch DAILY [facility] Administration Intake and Output 08/17/20 08/17/20 08/17/20 06:59 14:59 22:59 Intake Total 101.879 938.058 Output Total 500 500 Balance -398.121 438.058 Intake: IV 300 Sodium Chloride 0.9% 1, 300 000 ml @ 75 mls/hr IV . [id number] [facility] Rx#:[id number] Intake, IV Titration 101.879 78.058 Amount Heparin Sod,Pork in 0.45% 101.879 78.058 NaCl 25,000 unit In 0.45 % NaCl 1 250ml.bag @ 18 UNITS/KG/HR 17.717 mls/hr IV .Q14H7M [facility] Rx#: [id number] Oral 560 Output: Urine 500 500 Other: Voiding Method Toilet Toilet # Voids 2 3 Weight 98.1 kg 08/17/20 07:50 08/17/20 07:50
[2020-08-17 15:31] LABS: Appearance,Urine Cloudy (Clear); Bilirubin,Urine Negative (Negative); Color,Urine Light Yellow; Glucose,Urine (UA) Negative (Negative); Ketones,Urine Negative (Negative); Protein,Urine Negative (Negative); Specific Gravity,Urine 1.006 (1.001-1.035)
[2020-08-17 15:32] LABS: Bacteria,Urine Few /hpf; Blood,Urine Negative (Negative); Leukocyte Esterase,Urine Large (Negative); Mucus,Urine Rare /hpf; Nitrite,Urine Negative (Negative); RBC,Urine 1 /hpf (0-5); Squamous Epithelial Cell,Urine 1 /hpf (0-4); Urobilinogen,Urine <2.0 mg/dL (<2.0); WBC,Urine 23 /hpf (0-5)
[2020-08-17 15:41] LABS: Creatinine,Urine Random 32.4 mg/dL
[2020-08-17] MEDS: AZITHROMYCIN 500 MG in SODIUM CHLORIDE 0.9% 250 ML IVPB SCH (16:39)
[2020-08-17] MEDS: ATORVASTATIN 20 MG TAB PO SCH (19:52)
[2020-08-17 22:51] LABS: Urine Creatinine 30.5 mg/dL
[2020-08-18] MEDS: ACETAMINOPHEN TAB 500 MG TAB PO PRN ×4 (03:13→22:14)
[2020-08-18] MEDS: HEPARIN SOD,PORK IN 0.45% NACL 25,000 UNIT in 0.45% NACL 1 250ML.BAG IV SCH (06:38)
[2020-08-18] MEDS: BUDESONIDE 0.25 MG/2 ML NEBU INHALATION SCH ×2 (07:53→19:31)
[2020-08-18] MEDS: ALBUTEROL NEBULIZED 2.5 MG/3 ML INHALATION SCH ×3 (07:53→19:31)
[2020-08-18 08:04] LABS: Anisocytosis Slight; Basophils % (A) 0 %; Eosinophils # (A) 0.1 k/uL (0-0.7); Eosinophils % (A) 1 %; HCT 33.8 % (34.0-46.0); HGB 10.9 gm/dL (11.4-16.0); Lymphocytes # (A) 1.3 k/uL (1.0-4.8); Lymphocytes % (A) 14 %; MCH 30.1 pg (25.0-35.0); MCHC 32.1 g/dL (31.0-37.0); MCV 93.7 fL (80.0-100.0); Mean Platelet Volume 7.5; Monocytes # (A) 0.8 k/uL (0-1.0); Monocytes % (A) 9 %; Neutrophils # (A) 7.1 k/uL (1.3-7.7); Neutrophils % (A) 75 %; Platelet Count 181 k/uL (150-450); RDW 16.6 % (11.5-15.5); WBC 9.5 k/uL (3.8-10.6)
[2020-08-18] MEDS: FAMOTIDINE 20 MG/2 ML VIAL IV SCH (08:32)
[2020-08-18] MEDS: METOPROLOL TARTRATE 50 MG TAB PO SCH ×2 (08:32→19:56)
[2020-08-18] MEDS: ISOSORBIDE MONONITRATE ER 30 MG TAB.ER.24H PO SCH (08:32)
[2020-08-18] MEDS: hydrALAZINE HCL 50 MG TAB PO SCH ×2 (08:32→19:56)
[2020-08-18] MEDS: FUROSEMIDE 10 MG/ML 4 ML VIAL IV SCH (08:33)
[2020-08-18] MEDS: NICOTINE 14MG/24HR PATCH TRANSDERM SCH (08:33)
[2020-08-18] MEDS: ALPRAZolam 0.25 MG TAB PO PRN ×3 (08:47→19:57)
[2020-08-18 09:08] LABS: Albumin 3.4 g/dL (3.5-5.0); Calcium 7.9 mg/dL (8.4-10.2); Phosphorus 6.6 mg/dL (2.5-4.5); Potassium 3.9 mmol/L (3.5-5.1); Total Bilirubin 0.5 mg/dL (0.2-1.3); Total Protein 6.2 g/dL (6.3-8.2)
--- NOTE | 2020-08-18 13:18 | P.PN ---
Subjective Progress Note Date: 08/18/20 History of present illness This is a 60-year-old patient of Dr. Vázquez was not seen him in the last 2 years. She past medical history includes cardiac artery disease, hiatal hernia, peripheral neuropathy, chronic back pain, a agoriaphobia. Patient presented to the emergency room last night with dyspnea and abdominal discomfort. She has chronic dyspnea that worsened over the evening. She is a chronic smoker the having abdominal discomfort for several weeks. The discomfort happens mostly when she was sitting and moving to a standing position or just standing. She was admitted to inpatient status where she decided she wanted to leave and signed out AMA. Patient went to the [facility] and her children convinced her to return where she was sent back to the emergency room for evaluation. Her second visit to the emergency room patient was found to have a headache with elevated blood pressure, elevated troponin, an indeterminate VQ scan At this time patient is found resting in the emergency room in no acute distress. Patient is tearful and anxious. Patient unsure as to what is going on. Patient states that she does not have any abdominal pain at this time cont inues to have shortness of breath and some chest pain. Patient was scheduled to see Dr. Velásquez on 09/04. Abdominal CT impression: Noncontrast exam, correlate for possible enteritis, finding of the colon shows some colonic wall thickening in the rectosigmoid colon which may be due to the lack of distention or muscular atrophy, because the lesion not excluded. No evidence of appendicitis. Small bowel full shows some areas of wall thickening in the upper abdomen. Venous Doppler Impression: no evidence of deep venous thrombosis at or above the knees bilateral. 08/17: She has found resting comfortably in bed without any acute distress. Patient respirations are nonlabored and shallow. Patient appears less anxious compared to yesterday. Her breathing she states is better today compared to yesterday. Discussed in length the importance of smoking cessation and following up with her primary care provider. And has family by the bedside and questions were answered. Temperature 100.6 yesterday, pulse rate 76, respirations 16, blood pressure 142/71 pulse oxing 94% on room air. WBC 8.9, hemoglobin 11.2, platelets 175, potassium 3.7, BUN elevated at 38, creatinine 3.39, BNP 32797. Renal ultrasound shows atrophic left kidney. 08/18: Patient is seen today and states she wants to go home. She is very anxious and tearful. She continues to state that I just need to go home. Patient ate all of her breakfast this morning. She has a heparin drip in place which cardiology will be discontinuing. Cardiology has added Lasix 40 mg oral twice daily. Already medicine has ruled out pulmonary embolism. She did have Ji catheter placed during the night for urinary retention with residuals of 800 and 1400. Cardiology has discontinued heparin drip. She has been afebrile, heart rate 85, blood pressure 152/71, pulse ox 93% on room air. Repeat blood work reveals WBC 9.5, hemoglobin 10.9. Electrolytes normal, BUN 40 creatinine 3.97. Calcium 7.9. Urine culture is in progress. Patient is requesting to go home a concern is that renal function is still significant family abnormal and she is requesting that her Ji catheter be removed but she has significant urinary retention. Renal ultrasound reveals atrophic left kidney. Findings consistent with medical renal disease. Echocardiogram reveals EF of 55-60%, mild mitral regurgitation, mild tricuspid regurgitation, borderline pulmonary artery hypertension. Review Of Systems: Constitutional: No fever, no chills, no night sweats. No weight change. Reports weakness and fatigue, no lethargy. No daytime sleepiness. EENT: Reports headache. No blurred vision or double vision, no loss of vision. No loss of Hearing, no ringing in the ears, no dizziness. No nasal drainage or congestion. No epistaxis. No sore throat. Lungs: Reports shortness of breath- improved,no cough, no sputum production. No wheezing. Cardiovascular: No chest pain, Reports lower extremity edema more on the right. No palpitations. No paroxysmal nocturnal dyspnea. No orthopnea. No lightheadedness or dizziness. No syncopal episodes. Abdominal: Reports abdominal discomfort - resolved. No nausea, vomiting. no diarrhea. No constipation. No bloody or tarry stools. no loss of appetite. Genitourinary: No dysuria, increased frequency, urgency. Reports urinary retention. Musculoskeletal: No myalgias. No muscle weakness, no gait dysfunction, no frequent falls. No back pain. No neck pain. Integumentary: No wounds, no lesions. No rash or pruritus. No unusual bruising. No change in hair or nails. Neurologic: No aphasia. No facial droop. No change in mentation. No head injury. No headache. No paralysis. No paresthesia. Psychiatric: repoors depression. Reports anxiety. No mood swings. Endocrine: No abnormal blood sugars. No weight change. No excessive sweating or thirst. Physical examination General Appearance: Alert, cooperative, anxious,no acute respiratory distress, This is a 60 year old Caucasin female appears stated age. Neck HEENT: Supple, no lymphadenopathy, no thyroid enlargement, no carotid bruits. Lungs: Clear to auscultation without crackles or wheezes no rhonchi, no deformity. Chest Wall: Chest wall normal expansion with deep inspiration no tenderness and no deformity was found on exam, no costochondral pain or discomfort. Heart: Regular rate and rhythm, S1, S2 normal, no murmur, rub or gallop. Back: Symmetric, no curvature, ROM normal, no CVA tenderness. Abdomen: Soft, non-tender, no rebound or rigidity, no hepatosplenomegaly. Extremities: 2+ edema to bilateral lower extremities, Extremities atraumatic, no cyanosis Pulses: 2+ and symmetric. Skin: Skin color, texture, tugor normal, no rashes or lesions. Neurologic: Alert oriented x3 cranial nerves II through XII intact, no motor deficit, no abnormal balance or gait Assessment and plan 1. Acute dyspnea secondary to systolic versus diastolic acute over chronic congestive heart failure. Lasix 40 mg twice a day oral, metoprolol 100 mg twice a day, clonidine 0.1 mg daily as needed for systolic blood pressure greater than 160, hydralazine 50 mg twice a day, consult cardiology appreciated. Pulmonology consult appreciated. 2. Urgent versus emergent hypertension. Hydralazine, clonidine 3. Acute kidney injury new-onset stage III. Ultrasound of the kidney impression noted above, avoid nephrotoxin, consult nephrology, daily weight. 4. COPD without exacerbation. Pulmicort albuterol updrafts. 5. Possible Non-STEMI NJ with elevated troponins possibly secondary to renal failure. 6. Possible PE ruled out by pulmonary medicine, heparin drip discontinued. 7. Hyperlipidemia. Statin 20 mg by mouth 8. Chronic back pain. Continue gabapentin 9. Tobacco dependence. Nicotine patch applied. Discussed smoking cessation 10. Urinary retention requiring Ji catheter. 11. GI prophylaxis Pepcid 20 mg daily 12. DVT prophylaxis. Heparin drip Status: Full code Discharge plan: Home Impression and plan of care have been directed as dictated by the signing physician. Kaelyn Ramachandran nurse practitioner acting as scribe for signing physic akhil. Objective - Vital Signs Vital signs: Vital Signs Temp 98.8 F 08/18/20 08:28 Pulse 85 08/18/20 08:28 Resp 16 08/18/20 08:28 BP 152/71 08/18/20 08:28 Pulse Ox 93 L 08/18/20 08:28 Intake & Output 08/17/20 08/18/20 08/18/20 18:59 06:59 18:59 Intake Total 1498.058 171.865 Output Total 2300 2325 Balance -801.942 -2153.135 Weight 94.3 kg Intake: IV 300 Sodium Chloride 0.9% 1, 300 000 ml @ 75 mls/hr IV . [id number] [facility] Rx#:[id number] Intake, IV Titration 78.058 171.865 Amount Heparin Sod,Pork in 0.45% 78.058 171.865 NaCl 25,000 unit In 0.45 % NaCl 1 250ml.bag @ 18 UNITS/KG/HR 17.717 mls/hr IV .Q14H7M [facility] Rx#: [id number] Oral 1120 Output: Urine 2300 2325 Straight 1400 800 Other: Voiding Method Toilet Toilet # Voids 3 2 - Labs CBC & Chem 7: 08/18/20 07:34 08/18/20 07:34 Labs: Abnormal Lab Results - Last 24 Hours (Table) 08/17/20 08/17/20 08/17/20 Range/Units 07:50 07:50 15:00 RBC 3.72 L (3.80-5.40) m/uL Hgb 11.2 L (11.4-16.0) gm/dL Hct (34.0-46.0) % RDW 16.6 H (11.5-15.5) % APTT (22.0-30.0) sec Sodium 136 L (137-145) mmol/L BUN 38 H (7-17) mg/dL Creatinine 3.39 H (0.52-1.04) mg/dL Glucose 116 H (74-99) mg/dL Calcium 7.4 L (8.4-10.2) mg/dL Phosphorus (2.5-4.5) mg/dL Total Protein (6.3-8.2) g/dL Albumin (3.5-5.0) g/dL Urine Appearance Cloudy H (Clear) Ur Leukocyte Esterase Large H (Negative) Urine WBC 23 H (0-5) /hpf Urine Bacteria Few H (None) /hpf Urine Mucus Rare H (None) /hpf Microalb/Creat Ratio (0-30) mg/g Creat 08/17/20 08/17/20 08/18/20 Range/Units 15:00 16:24 07:34 RBC 3.60 L (3.80-5.40) m/uL Hgb 10.9 L (11.4-16.0) gm/dL Hct 33.8 L (34.0-46.0) % RDW 16.6 H (11.5-15.5) % APTT 62.9 H (22.0-30.0) sec Sodium (137-145) mmol/L BUN (7-17) mg/dL Creatinine (0.52-1.04) mg/dL Glucose (74-99) mg/dL Calcium (8.4-10.2) mg/dL Phosphorus (2.5-4.5) mg/dL Total Protein (6.3-8.2) g/dL Albumin (3.5-5.0) g/dL Urine Appearance (Clear) Ur Leukocyte Esterase (Negative) Urine WBC (0-5) /hpf Urine Bacteria (None) /hpf Urine Mucus (None) /hpf Microalb/Creat Ratio 59 H (0-30) mg/g Creat 08/18/20 08/18/20 Range/Units 07:34 07:34 RBC (3.80-5.40) m/uL Hgb (11.4-16.0) gm/dL Hct (34.0-46.0) % RDW (11.5-15.5) % APTT 63.3 H (22.0-30.0) sec Sodium (137-145) mmol/L BUN 40 H (7-17) mg/dL Creatinine 3.97 H (0.52-1.04) mg/dL Glucose (74-99) mg/dL Calcium 7.9 L (8.4-10.2) mg/dL Phosphorus 6.6 H (2.5-4.5) mg/dL Total Protein 6.2 L (6.3-8.2) g/dL Albumin 3.4 L (3.5-5.0) g/dL Urine Appearance (Clear) Ur Leukocyte Esterase (Negative) Urine WBC (0-5) /hpf Urine Bacteria (None) /hpf Urine Mucus (None) /hpf Microalb/Creat Ratio (0-30) mg/g Creat
--- NOTE | 2020-08-18 14:48 | P.PN ---
Subjective Progress Note Date: 08/18/20 Principal diagnosis: Shortness of breath, abdominal discomfort This is a 60-year-old female patient, presented to the emergency department yesterday because of worsening shortness of breath and abdominal discomfort. She has known to have chronic dyspnea and it was worse yesterday and for that reason she came into the ED. She has history of chronic smoking. She did have exertional dyspnea. She was in the burst department for the same complaint on 08/15/2020. At that time, she had a workup which included a VQ scan that showed moderate to severe airway disease and there is intermediate probability for pulmonary embolism. CAT scan of the abdomen that was done without contrast showed questionable enteritis and some colonic wall thickening at the level of the rectosigmoid colon. No evidence of any other acute abnormalities. The lung bases were essentially showing some limited mosaic perfusion in the lung bases without any major abnormalities. The echocardiogram showed a preserved LV function with an ejection fraction of 55-60%. No significant valvular abnorma lities. There was mild aortic sclerosis. PA pressure was minimally elevated. Her blood work for now showing a white cell count of 8.9 with a hemoglobin of 11.2. Platelet counts are normal. The patient has a BUN of 38 with a creatinine of 3.39 probably related to chronic kidney disease. The rest of the electrodes are all within normal limits, liver function since of normal, troponin was 0.9 and the proBNP level was 32,001 100 on 08/16/2020. She is currently on IV heparin. Cardiac rhythm is sinus and the patient had voltage criteria for LVH without any acute ischemic changes. Doppler of the lower extremity was also done that showed no evidence of any DVT. Currently the patient is subjected to diuretics and she is receiving Lasix 40 mg every 12 hours pH is on oxygen at room air and she has a pulse ox of 94%. Morning temperature was 100.6 and this is the first brachytherapy that were seen during this current admission. On 08/18/2020 patient seen in follow-up on selective care unit, she is awake and alert, she is currently on room air, pulse ox is 93%, she is afebrile, vital s igns are stable, she remains on diuretics, Lasix 40 mg every 12 hours, she is in -2.9 L Balance over the last 24 hours, 0.9 normal saline infusing at a rate of 10 mL per hour. She remains on azithromycin and Rocephin, possibility of urinary tract infection, urine culture is pending, patient had a low-grade fever early this morning at 3:00 in the morning with a temp of 100.5F, denies any cough, d enies any significant phlegm production. Her VQ scan showed intermediate probability for pulmonary embolism. Dopplers did not show evidence of DVT. Today's lab work has been reviewed showing white blood cell count 9.5, hemoglobin of 10.5, electrolytes were within normal limits, renal profile is s table with BUN of 40 and creatinine of 3.9, nephrology is following, patient remains on heparin infusion for possibility of PE which seems to be less likely. Objective - Vital Signs Vital signs: Vital Signs Temp 98.8 F 08/18/20 08:28 Pulse 76 08/18/20 13:45 Resp 18 08/18/20 11:00 BP 153/61 08/18/20 11:00 Pulse Ox 93 L 08/18/20 11:00 Intake & Output 08/17/20 08/18/20 08/18/20 18:59 06:59 18:59 Intake Total 1498.058 171.865 240 Output Total 2300 2325 2500 Balance -801.942 -2153.135 -2260 Weight 94.3 kg Intake: IV 300 Sodium Chloride 0.9% 1, 300 000 ml @ 75 mls/hr IV . [id number] [facility] Rx#:[id number] Intake, IV Titration 78.058 171.865 Amount Heparin Sod,Pork in 0.45% 78.058 171.865 NaCl 25,000 unit In 0.45 % NaCl 1 250ml.bag @ 18 UNITS/KG/HR 17.717 mls/hr IV .[id number] [facility] Rx#: [id number] Oral 1120 240 Output: Urine 2300 2325 2500 Straight 1400 800 800 Other: Voiding Method Toilet Toilet Indwelling Catheter # Voids 3 2 - Exam GENERAL EXAM: Alert, very pleasant, 60-year-old white female on room air with a pulse ox 93% comfortable in no apparent distress. HEAD: Normocephalic/atraumatic. EYES: Normal reaction of pupils, equal size. Conjunctiva pink, sclera white. NOSE: Clear with pink turbinates. THROAT: No erythema or exudates. NECK: No masses, no JVD, no thyroid enlargement, no adenopathy. CHEST: No chest wall deformity. Symmetrical expansion. LUNGS: Equal air entry with no crackles, wheeze, rhonchi or dullness. CVS: Regular rate and rhythm, normal S1 and S2, no gallops, no murmurs, no rubs ABDOMEN: Soft, nontender. No hepatosplenomegaly, normal bowel sounds, no guarding or rigidity. EXTREMITIES: No clubbing, no edema, no cyanosis, 2+ pulses and upper and lower extremities. MUSCULOSKELETAL: Muscle strength and tone normal. SPINE: No scoliosis or deformity SKIN: No rashes CENTRAL NERVOUS SYSTEM: Alert and oriented -3. No focal deficits, tone is normal in all 4 extremities. PSYCHIATRIC: Alert and oriented -3. Appropriate affect. Intact judgment and insight. - Labs CBC & Chem 7: 08/18/20 07:34 08/18/20 07:34 Labs: Abnormal Lab Results - Last 24 Hours (Table) 08/17/20 08/17/20 08/17/20 Range/Units 15:00 15:00 16:24 RBC (3.80-5.40) m/uL Hgb (11.4-16.0) gm/dL Hct (34.0-46.0) % RDW (11.5-15.5) % APTT 62.9 H (22.0-30.0) sec BUN (7-17) mg/dL Creatinine (0.52-1.04) mg/dL Calcium (8.4-10.2) mg/dL Phosphorus (2.5-4.5) mg/dL Total Protein (6.3-8.2) g/dL Albumin (3.5-5.0) g/dL Urine Appearance Cloudy H (Clear) Ur Leukocyte Esterase Large H (Negative) Urine WBC 23 H (0-5) /hpf Urine Bacteria Few H (None) /hpf Urine Mucus Rare H (None) /hpf Microalb/Creat Ratio 59 H (0-30) mg/g Creat 08/18/20 08/18/20 08/18/20 Range/Units 07:34 07:34 07:34 RBC 3.60 L (3.80-5.40) m/uL Hgb 10.9 L (11.4-16.0) gm/dL Hct 33.8 L (34.0-46.0) % RDW 16.6 H (11.5-15.5) % APTT 63.3 H (22.0-30.0) sec BUN 40 H (7-17) mg/dL Creatinine 3.97 H (0.52-1.04) mg/dL Calcium 7.9 L (8.4-10.2) mg/dL Phosphorus 6.6 H (2.5-4.5) mg/dL Total Protein 6.2 L (6.3-8.2) g/dL Albumin 3.4 L (3.5-5.0) g/dL Urine Appearance (Clear) Ur Leukocyte Esterase (Negative) Urine WBC (0-5) /hpf Urine Bacteria (None) /hpf Urine Mucus (None) /hpf Microalb/Creat Ratio (0-30) mg/g Creat Microbiology - Last 24 Hours (Table) 08/17/20 15:00 Urine Culture - Preliminary Urine,Voided Assessment and Plan Plan: Assessment: 1 Dyspnea, chronic, currently on room air oxygen with a pulse of 94%. The patient has COPD secondary to chronic smoking. No signs of an acute exacerbation. No signs of any decompensated heart failure. No signs of any pulmonary infection for now. 2 acute on chronic kidney disease and the patient has taken significant amount of nonsteroidals in the past and the patient is a smoker and has shrunken kidneys consistent with chronic kidney disease. 3 possible non-STEMI with minimal troponin leak, no acute ischemic EKG changes and echocardiogram showing preserved LV function with some mild diastolic heart failure. 4 hypertension , currently under better BP control 5 Carotid artery disease with a previous endarterectomy 6 peripheral neuropathy 7 hiatal hernia 8 chronic back pain 9 hypothyroidism 7 hyperlipidemia Plan: Continue current medical treatment, continue bronchodilators, her breathing is improving, patient is on room air, no chest pain, no hemoptysis, VQ scan showed intermediate probability for PE, but lower extremity Dopplers were negative for DVT, from pulmonary perspective is unlikely patient has a pulmonary embolism, may discontinue heparin infusion, no need for oral anticoagulation, continue diuretics, will await results of the urine culture, increase activity as tolerated, follow electrodes and renal profile follow-up chest x-ray in the morning I performed a history & physical examination of the patient and discussed their management with my nurse practitioner, Kaia Guerrero. I reviewed the nurse practitioner's note and agree with the documented findings and plan of care. Lung sounds are positive for diminished breath sounds. The findings and the impression was discussed with the patient. I attest to the documentation by the nurse practitioner. Time with Patient: Less than 30
[2020-08-18] MEDS: FUROSEMIDE 40 MG TAB PO SCH (15:22)
--- NOTE | 2020-08-18 15:24 | P.PN ---
Subjective Progress Note Date: 08/18/20 HISTORY OF PRESENT ILLNESS: 08/17/2020 This is a 60-year-old female with a past medical history significant for anxiety, depression, carotid stenosis with previous right carotid endarterectomy and nicotine dependence. Patient does not follow with a charrer. We have been asked to see the patient in consultation for shortness of breath. Patient originally presented to the hospital on 08/15/2020 secondary to shortness of breath. She was admitted to the cardiac stepdown unit however she left yesterday AMA. Patient states that her family made her come back to the emergency room. Patient states she has been expressing shortness of breath for the past several months. She states the shortness of breath is only with exertion. She denies redness of breath at rest. She denies any chest pain or pressure. She reports a history of smoking and states she smokes 1-2 packs of cigarettes a day. She denies any previous cardiac history. She denies having a stress test or cardiac catheterization in the past. EKG reveals sinus mechanism with T-wave inversions in inferior leads Chest xray no acute process Laboratory data: WBC 8.9. Hemoglobin 11.2. Platelet count 175. Sodium 136. Potassium 3.7. BUN 38. Creatinine 3.39. Magnesium 1.7. BNP 32,100. Troponin 0.012. 0.054. 0.915. Current home cardiac medications include none VQ scan performed revealed intermediate probability of pulmonary embolism Venous Doppler: Negative for DVT Echocardiogram revealed ejection fraction 55-60%, mild mitral regurgitation, and mild tricuspid regurgitation 08/18/2020 Patient examined this means bedside. Patient is very anxious and tearful. She denies chest pain or pressure. She denies shortness of breath at rest. She does report shortness of breath with ambulation. PHYSICAL EXAM: VITAL SIGNS: Reviewed. GENERAL: Well-developed in no acute distress. HEENT: Head is normocephalic. Pupils are equal, round. Sclerae anicteric. Mucous membranes of the mouth are moist. Neck supple. No JVD or thyromegaly LUNGS: Respirations even and unlabored. Lungs diminished bilaterally. HEART: Regular rate and rhythm. S1 and S2 heard. ABDOMEN: Soft. Nondistended. Nontender. EXTREMITIES: Normal range of motion. No clubbing or cyanosis. Peripheral pulses intact. Trace bilateral lower extremity edema NEUROLOGIC: Awake and alert. Oriented x 3. ASSESSMENT: Exertional shortness of breath Acute diastolic heart failure, EF 55-60%, BNP 32,100 Acute on chronic renal failure Abnormal troponins, possible NSTEMI, however may be secondary to acute renal failure and heart failure Hypertension Carotid stenosis with previous right carotid endarterectomy Possible PE, VQ scan revealing intermediate probability of PE COPD Nicotine dependence PLAN: Recommend smoking cessation May discontinue IV heparin from a cardiac standpoint if okay with pulmonary Discontinue IV Lasix. Begin oral Lasix 40 mg twice a day Monitor kidney function. Nephrology following Daily weights Accurate I&O Patient will require ischemic workup when she is medically stable. May be performed outpatient. Further recommendations pending patient's course Nurse practitioner note has been reviewed by physician. Signing provider agrees with the documented findings, assessment, and plan of care. Objective - Vital Signs Vital signs: Vital Signs Temp 100.1 F H 08/18/20 15:17 Pulse 81 08/18/20 15:17 Resp 16 08/18/20 15:17 BP 118/56 08/18/20 15:17 Pulse Ox 94 L 08/18/20 15:17 Intake & Output 08/17/20 08/18/20 08/18/20 18:59 06:59 18:59 Intake Total 1498.058 171.865 240 Output Total 2300 2325 2500 Balance -801.942 -2153.135 -2260 Weight 94.3 kg Intake: IV 300 Sodium Chloride 0.9% 1, 300 000 ml @ 75 mls/hr IV . [id number] [facility] Rx#:[id number] Intake, IV Titration 78.058 171.865 Amount Heparin Sod,Pork in 0.45% 78.058 171.865 NaCl 25,000 unit In 0.45 % NaCl 1 250ml.bag @ 18 UNITS/KG/HR 17.717 mls/hr IV .[id number] [facility] Rx#: [id number] Oral 1120 240 Output: Urine 2300 2325 2500 Straight 1400 800 800 Other: Voiding Method Toilet Toilet Indwelling Catheter # Voids 3 2 - Labs CBC & Chem 7: 08/18/20 07:34 08/18/20 07:34 Labs: Abnormal Lab Results - Last 24 Hours (Table) 08/17/20 08/17/20 08/17/20 Range/Units 15:00 15:00 16:24 RBC (3.80-5.40) m/uL Hgb (11.4-16.0) gm/dL Hct (34.0-46.0) % RDW (11.5-15.5) % APTT 62.9 H (22.0-30.0) sec BUN (7-17) mg/dL Creatinine (0.52-1.04) mg/dL Calcium (8.4-10.2) mg/dL Phosphorus (2.5-4.5) mg/dL Total Protein (6.3-8.2) g/dL Albumin (3.5-5.0) g/dL Urine Appearance Cloudy H (Clear) Ur Leukocyte Esterase Large H (Negative) Urine WBC 23 H (0-5) /hpf Urine Bacteria Few H (None) /hpf Urine Mucus Rare H (None) /hpf Microalb/Creat Ratio 59 H (0-30) mg/g Creat 08/18/20 08/18/20 08/18/20 Range/Units 07:34 07:34 07:34 RBC 3.60 L (3.80-5.40) m/uL Hgb 10.9 L (11.4-16.0) gm/dL Hct 33.8 L (34.0-46.0) % RDW 16.6 H (11.5-15.5) % APTT 63.3 H (22.0-30.0) sec BUN 40 H (7-17) mg/dL Creatinine 3.97 H (0.52-1.04) mg/dL Calcium 7.9 L (8.4-10.2) mg/dL Phosphorus 6.6 H (2.5-4.5) mg/dL Total Protein 6.2 L (6.3-8.2) g/dL Albumin 3.4 L (3.5-5.0) g/dL Urine Appearance (Clear) Ur Leukocyte Esterase (Negative) Urine WBC (0-5) /hpf Urine Bacteria (None) /hpf Urine Mucus (None) /hpf Microalb/Creat Ratio (0-30) mg/g Creat Microbiology - Last 24 Hours (Table) 08/17/20 15:00 Urine Culture - Preliminary Urine,Voided
[2020-08-18] MEDS: AZITHROMYCIN 500 MG in SODIUM CHLORIDE 0.9% 250 ML IVPB SCH (16:31)
--- NOTE | 2020-08-18 17:33 | PN ---
PROGRESS NOTE Patient is seen for followup for acute kidney injury. She has underlying CKD stage 3, baseline creatinine 1.2-1.5 mg/dL. The patient was admitted to the hospital with worsening shortness of breath. She has an atrophic left kidney. Serum creatinine was about 3.4 mg/dL. Patient just had an indwelling Ji catheter placed as she has had urine retention. Blood pressure has not been significantly low. Systolic blood pressure around 120-130 mmHg. Serum creatinine today was 3.97 from 3.39 yesterday. PHYSICAL EXAMINATION: Blood pressure was 118/56, heart rate 81 per minute, patient is afebrile. Examination of the heart S1, S2. Examination of the lungs, bilateral breath sounds are heard. Abdomen is soft, nontender. Examination of lower extremities shows no significant edema. [employer] exam grossly intact. LAB: Show sodium 138, potassium 3.9, chloride 104, BUN 40, creatinine 3.97, hemoglobin 10.9 g/dL. ASSESSMENT: 1. Acute kidney injury, obstructive uropathy. Will place Ji catheter and consult Urology. The patient also has an atrophic left kidney. There is definitely a component of acute tubular necrosis as well and since renal function has been worsening with evidence of urine retention, I will proceed with Ji catheter placement. Continue with the IV fluids as well in the meantime. Chest x-ray was done on admission, which showed no acute pulmonary process. The patient is maintained on Lasix 40 b.i.d., which I will decrease. 2. Diastolic heart failure on initial admission, now improved. 3. Possible non ST elevation myocardial infarction. No plans for cardiac catheterization at this point, currently stable with no complaints of chest pain. 4. Intermediate probability for pulmonary embolism, maintained on IV heparin. 5. Hypertension, controlled. PLAN: Continue with Ji catheter. Consult Urology. We can likely discharge the patient tomorrow with plans to follow up as outpatient with Urology. Her serum creatinine has increased and this is most likely related to her underlying urine retention in the presence of solitary kidney. MMODL / IJN: [id number] /
--- NOTE | 2020-08-18 18:37 | P.GSCN ---
History of Present Illness Consult date: 08/18/20 History of present illness: This is a 60-year-old female came to the hospital 48 hours ago with shortness of breath. She has had this for several weeks and assuming it is just due to her chronic smoking. She has multiple medical illnesses. She follows with Dr. Vázquez but has not seen him in the last couple years. During this hospitalization she has been found to have urine retention. She had an initial catheterization 1400 mL followed by a straight cath for about 800 mL and then a catheterization for 600 mL. The patient states she is not aware of being full at the time of catheterization. The patient denies problems with her urinary tract prior to this hospitalization. She denies incontinence. She hasn't had only the urine infection. She has an atrophic left kidney on computed tomography scan. The bladder was not that full on the computed tomography scan. There is no obvious stones. There is no major pelvic surgery. She is feeling much better at this point in time. She has been seen by nephrology. There is a component of ATN. Her creatinine went to 3.4 where it normally is around 1.5. Review of Systems All systems: negative - Constitutional Denies fever, Denies weight loss - EENT Eyes: denies blurred vision Ears, nose, mouth and throat: Denies dysphagia - Cardiovascular Denies chest pain, Denies shortness of breath - Respiratory Denies cough, Denies 7 - Gastrointestinal Reports as per HPI - Genitourinary Genitourinary: Denies dysuria, Denies hematuria - Integumentary Denies rash, Denies unusual bruising - Neurological Denies headaches, Denies syncope - Hematologic/Lymphatic Denies easy bleeding, Denies easy bruising Past Medical History Past Medical History: Musculoskeletal Disorder Additional Past Medical History / Comment(s): Carotid artery disease, hiatal hernia, peripheral neuropathy, chronic back pain, seasonal environmental ALLERGIES, osteoarthritis History of Any Multi-Drug Resistant Organisms: None Reported Past Surgical History: Back Surgery, Section, Tubal Ligation Additional Past Surgical History / Comment(s): SINUS SURGERY. RIGHT CAROTID ENDARTERECTOMY. Past Anesthesia/Blood Transfusion Reactions: Previous Problems w/ Anesthesia Additional Past Anesthesia/Blood Transfusion Reaction / Comm: SHE WAS TOLD IT TOOK ALOT OF MEDICATION TO PUT HER OUT FOR PAIN PROCEDURE. Past Psychological History: Anxiety, Depression Additional Psychological History / Comment(s): NO MEDS. Smoking Status: Current every day smoker Past Alcohol Use History: Occasional Additional Past Alcohol Use History / Comment(s): SMOKES 1 PPD OR LESS, SMOKING SINCE 18 YEARS OLD. Patient denies any marijuana or illicit drug use. She denies any alcohol use. She does not use a cane or walker for ambulation. Past Drug Use History: None Reported Additional Drug Use History / Comment(s): STATES SHE TRIED "ZBD", WHICH IS A FORM OF HEMP-CURRENTLY NOT TAKING, SHE IS GOING TO SPEAK TO THE PAIN CLINIC DR ABOUT IT. - Past Family History Father Additional Family Medical History / Comment(s): Father at age 52 from suicide. Sister(s) Additional Family Medical History / Comment(s): Patient has 2 sisters and 5 brothers with no major medical problems. Patient has one son and one daughter with no major medical problems. Mother Family Medical History: Cancer Additional Family Medical History / Comment(s): Mother at age 59 from breast cancer. Medications and Allergies Home Medications Medication Instructions Recorded Confirmed Type Gabapentin [Neurontin] 400 mg PO TID PRN 10/13/18 08/16/20 History Omeprazole [PriLOSEC] 20 mg PO DAILY 10/13/18 08/16/20 History diphenhydrAMINE HCL [Benadryl] 25 mg PO DAILY PRN 08/15/20 08/16/20 History predniSONE See Taper PO DAILY 08/15/20 08/16/20 History Hydrocortisone Cream 1 applic TOPICAL BID PRN 08/16/20 08/16/20 History [Hydrocortisone 2.5% Cream] hydrOXYzine HCL [Atarax] 10 mg PO 5XD PRN 08/16/20 08/16/20 History Allergies Allergy/AdvReac Type Severity Reaction Status Date / Time amoxicillin AdvReac Nausea & Verified 08/16/20 10:50 Vomiting Surgical - Exam Vital Signs Temp Pulse Resp BP Pulse Ox 98.8 F 94 18 150/92 96 08/16/20 09:25 08/16/20 09:25 08/16/20 09:25 08/16/20 09:25 08/16/20 09:25 - General well developed, well nourished, no distress - Eyes PERRL - ENT no hearing loss - Neck no masses - Respiratory normal expansion, normal respiratory effort - Cardiovascular Rhythm: regular - Abdomen Abdomen: soft, non tender - Genitourinary There is no vaginal prolapse. There is no indwelling catheter. There is no obvious pelvic mass. normal external genitalia, normal perineum - Integumentary no rash, no growths - Neurologic normal coordination, normal sensation - Musculoskeletal normal posture - Psychiatric oriented to time, oriented to person, oriented to place, speech is normal, memory intact Results - Labs 08/18/20 07:34 08/18/20 07:34 Abnormal Lab Results - Last 24 Hours (Table) 08/17/20 08/18/20 08/18/20 Range/Units 15:00 07:34 07:34 RBC 3.60 L (3.80-5.40) m/uL Hgb 10.9 L (11.4-16.0) gm/dL Hct 33.8 L (34.0-46.0) % RDW 16.6 H (11.5-15.5) % APTT (22.0-30.0) sec BUN 40 H (7-17) mg/dL Creatinine 3.97 H (0.52-1.04) mg/dL Calcium 7.9 L (8.4-10.2) mg/dL Phosphorus 6.6 H (2.5-4.5) mg/dL Total Protein 6.2 L (6.3-8.2) g/dL Albumin 3.4 L (3.5-5.0) g/dL Microalb/Creat Ratio 59 H (0-30) mg/g Creat 08/18/20 Range/Units 07:34 RBC (3.80-5.40) m/uL Hgb (11.4-16.0) gm/dL Hct (34.0-46.0) % RDW (11.5-15.5) % APTT 63.3 H (22.0-30.0) sec BUN (7-17) mg/dL Creatinine (0.52-1.04) mg/dL Calcium (8.4-10.2) mg/dL Phosphorus (2.5-4.5) mg/dL Total Protein (6.3-8.2) g/dL Albumin (3.5-5.0) g/dL Microalb/Creat Ratio (0-30) mg/g Creat Microbiology - Last 24 Hours (Table) 08/17/20 15:01 Blood Culture - Preliminary Blood No Growth after 24 hours 08/17/20 15:00 Urine Culture - Preliminary Urine,Voided Diabetes panel 08/18/20 Range/Units 07:34 Sodium 138 (137-145) mmol/L Potassium 3.9 (3.5-5.1) mmol/L Chloride 104 (98-107) mmol/L Carbon Dioxide 23 (22-30) mmol/L BUN 40 H (7-17) mg/dL Creatinine 3.97 H (0.52-1.04) mg/dL Glucose 97 (74-99) mg/dL Calcium 7.9 L (8.4-10.2) mg/dL AST 16 (14-36) U/L ALT 15 (4-34) U/L Alkaline Phosphatase 78 (38-126) U/L Total Protein 6.2 L (6.3-8.2) g/dL Albumin 3.4 L (3.5-5.0) g/dL Calcium panel 08/18/20 Range/Units 07:34 Calcium 7.9 L (8.4-10.2) mg/dL Phosphorus 6.6 H (2.5-4.5) mg/dL Albumin 3.4 L (3.5-5.0) g/dL Pituitary panel 08/18/20 Range/Units 07:34 Sodium 138 (137-145) mmol/L Potassium 3.9 (3.5-5.1) mmol/L Chloride 104 (98-107) mmol/L Carbon Dioxide 23 (22-30) mmol/L BUN 40 H (7-17) mg/dL Creatinine 3.97 H (0.52-1.04) mg/dL Glucose 97 (74-99) mg/dL Calcium 7.9 L (8.4-10.2) mg/dL Adrenal panel 08/18/20 Range/Units 07:34 Sodium 138 (137-145) mmol/L Potassium 3.9 (3.5-5.1) mmol/L Chloride 104 (98-107) mmol/L Carbon Dioxide 23 (22-30) mmol/L BUN 40 H (7-17) mg/dL Creatinine 3.97 H (0.52-1.04) mg/dL Glucose 97 (74-99) mg/dL Calcium 7.9 L (8.4-10.2) mg/dL Total Bilirubin 0.5 (0.2-1.3) mg/dL AST 16 (14-36) U/L ALT 15 (4-34) U/L Alkaline Phosphatase 78 (38-126) U/L Total Protein 6.2 L (6.3-8.2) g/dL Albumin 3.4 L (3.5-5.0) g/dL - Imaging CT scan - abdomen: report reviewed, image reviewed CT scan - pelvis: report reviewed, image reviewed Assessment and Plan Assessment: Impression: Acute urinary retention, possible situational. Shortness of breath. Multiple medical illnesses outlined in the history and physical. acute on chronic renal failure history of back surgery. Recommendations: Since there is no hydronephrosis on the computed tomography scan or ultrasound I do not think the renal insufficiency is urologic. The urine retention based on her history sounds more situational rather than chronic. If the patient is here another couple of days I would try the catheter out for a voiding trial. If she goes home in the next 24 hours she probably is going to need a catheter and will need a voiding trial as an outpatient via our office. I will follow this patient with you. Time with Patient: Greater than 30
[2020-08-18] MEDS: ATORVASTATIN 20 MG TAB PO SCH (19:56)
[2020-08-19 07:37] LABS: Calcium 8.2 mg/dL (8.4-10.2); Potassium 3.8 mmol/L (3.5-5.1)
[2020-08-19] MEDS: ALBUTEROL NEBULIZED 2.5 MG/3 ML INHALATION SCH (08:20)
[2020-08-19] MEDS: BUDESONIDE 0.25 MG/2 ML NEBU INHALATION SCH (08:27)
[2020-08-19] MEDS ORDERED: FUROSEMIDE 40 MG TAB PO SCH (09:00)
[2020-08-19] MEDS ORDERED: FAMOTIDINE 20 MG TAB PO SCH (09:00)
[2020-08-19] MEDS ORDERED: ASPIRIN 81 MG PO SCH (09:00)
--- NOTE | 2020-08-19 09:11 | P.DS ---
Providers Date of admission: 08/16/20 11:01 Expected date of discharge: 08/19/20 Attending physician: Mark Martínez Consults: 08/16/20 11:01 Consult Physician Urgent Consulting Provider: [facility] Consult Reason/Comments: NSTEMI Do you want consulting provider notified?: Yes Consult Physician Urgent Consulting Provider: David Mcelroy Consult Reason/Comments: Acute renal failure Do you want consulting provider notified?: Yes 08/17/20 09:29 Consult Physician Routine Consulting Provider: Jannet Herring Consult Reason/Comments: SOB Do you want consulting provider notified?: Yes 08/18/20 14:53 Consult Physician Routine Consulting Provider: Beto Eastman Consult Reason/Comments: Urinary retention Do you want consulting provider notified?: Yes Primary care physician: Sukhdeep Gurpreet [facility] Hospital Course: History of present illness This is a 60-year-old patient of Dr. Vázquez was not seen him in the last 2 years. She past medical history includes cardiac artery disease, hiatal hernia, peripheral neuropathy, chronic back pain, a agoriaphobia. Patient presented to the emergency room last night with dyspnea and abdominal discomfort. She has chronic dyspnea that worsened over the evening. She is a chronic smoker the having abdominal discomfort for several weeks. The discomfort happens mostly when she was sitting and moving to a standing position or just standing. She was admitted to inpatient status where she decided she wanted to leave and signed out AMA. [facility] and her children convinced her to return where she was sent back to the emergency room for evaluation. Her second visit to the emergency room patient was found to have a headache with elevated blood pressure, elevated troponin, an indeterminate VQ scan At this time patient is found resting in the emergency room in no acute distress. Patient is tearful and anxious. Patient unsure as to what is going on. Patient states that she does not have any abdominal pain at this time continues to have shortness of breath and some chest pain. Patient was scheduled to see Dr. Velásquez on 09/04. Abdominal CT impression: Noncontrast exam, correlate for possible enteritis, finding of the colon shows some colonic wall thickening in the rectosigmoid colon which may be due to the lack of distention or muscular atrophy, because the lesion not excluded. No evidence of appendicitis. Small bowel full shows some areas of wall thickening in the upper abdomen. Venous Doppler Impression: no evidence of deep venous thrombosis at or above the knees bilateral. 08/17: She has found resting comfortably in bed without any acute distress. Patient respirations are nonlabored and shallow. Patient appears less anxious compared to yesterday. Her breathing she states is better today compared to yesterday. Discussed in length the importance of smoking cessation and following up with her primary care provider. And has family by the bedside and questions were answered. Temperature 100.6 yesterday, pulse rate 76, respirations 16, blood pressure 142/71 pulse oxing 94% on room air. WBC 8.9, hemoglobin 11.2, platelets 175, potassium 3.7, BUN elevated at 38, creatinine 3.39, BNP 17658. Renal ultrasound shows atrophic left kidney. 08/18: Patient is seen today and states she wants to go home. She is very anxious and tearful. She continues to state that I just need to go home. Patient ate all of her breakfast this morning. She has a heparin drip in place which cardiology will be discontinuing. Cardiology has added Lasix 40 mg oral twice daily. Already medicine has ruled out pulmonary embolism. She did have Chapin catheter placed during the night for urinary retention with residuals of 800 and 1400. Cardiology has discontinued heparin drip. She has been afebrile, heart rate 85, blood pressure 152/71, pulse ox 93% on room air. Repeat blood work reveals WBC 9.5, hemoglobin 10.9. Electrolytes normal, BUN 40 creatinine 3.97. Calcium 7.9. Urine culture is in progress. Patient is requesting to go home a concern is that renal function is still significant family abnormal and she is requesting that her Chapin catheter be removed but she has significant urinary retention. Renal ultrasound reveals atrophic left kidney. Findings consistent with medical renal disease. Echocardiogram reveals EF of 55-60%, mild mitral regurgitation, mild tricuspid regurgitation, borderline pulmonary artery hypertension. 08/19: Heparin drip was discontinued yesterday. Patient denies having any chest pain, shortness of breath. She is upset that she has a Chapin catheter in place but is agreeable to maintain this for a week and follow-up with Dr. Eastman as he advised. Patient was seen by Dr. Eastman yesterday. Repeat blood work reveals normal electrolytes, BUN 41 and creatinine 3.97. Patient admits that she takes nonsteroidal anti-inflammatories on a regular basis and has been doing this for the past 3 years and she has been off opioids. Patient has been afebrile, heart rate 87, blood pressure 171/97 and repeat 117/83, pulse ox 98% on room air. Patient will be discharged home today in stable condition. Discharge diagnoses 1. Acute dyspnea secondary to acute diastolic heart failure. 2. Urgent hypertension. 3. Acute kidney injury new-onset chronic kidney disease stage III. 4. COPD without exacerbation. 5. Elevated troponins most likely secondary to renal failure. 6. Possible PE ruled out by pulmonary medicine. 7. Hyperlipidemia. 8. Chronic back pain. 9. Tobacco dependence. 10. Urinary retention requiring Chapin catheter. Discharge plan: Home Impression and plan of care have been directed as dictated by the signing physician. Kaelyn Ramachandran nurse practitioner acting as scribe for signing physician. Patient Condition at Discharge: Good Plan - Discharge Summary Discharge Rx Participant: No New Discharge Prescriptions: New hydrALAZINE HCL [Apresoline] 50 mg PO BID #60 tab Aspirin 81 mg PO DAILY chew Nicotine 14Mg/24Hr Patch [Habitrol] 1 patch TRANSDERM DAILY #30 patch Isosorbide Mononitrate ER [Imdur] 30 mg PO DAILY #30 tab.er.24h Furosemide [Lasix] 40 mg PO BID@0900,1600 #60 tab Atorvastatin [Lipitor] 20 mg PO HS #30 tab Metoprolol Tartrate [Lopressor] 100 mg PO BID #120 tab Albuterol Sulfate [Proair Hfa] 1 - 2 puff INHALATION Q6HR PRN #1 inhaler PRN Reason: Wheezing Continue Omeprazole [PriLOSEC] 20 mg PO DAILY Gabapentin [Neurontin] 400 mg PO TID PRN PRN Reason: Pain diphenhydrAMINE HCL [Benadryl] 25 mg PO DAILY PRN PRN Reason: Allergy Symptoms predniSONE See Taper PO DAILY Hydrocortisone Cream [Hydrocortisone 2.5% Cream] 1 applic TOPICAL BID PRN PRN Reason: Itching hydrOXYzine HCL [Atarax] 10 mg PO 5XD PRN PRN Reason: Itching Discharge Medication List Gabapentin [Neurontin] 400 mg PO TID PRN 10/13/18 [History] Omeprazole [PriLOSEC] 20 mg PO DAILY 05/03/19 [History] diphenhydrAMINE HCL [Benadryl] 25 mg PO DAILY PRN 08/15/20 [History] predniSONE See Taper PO DAILY 08/15/20 [History] Hydrocortisone Cream [Hydrocortisone 2.5% Cream] 1 applic TOPICAL BID PRN 08/16/20 [History] hydrOXYzine HCL [Atarax] 10 mg PO 5XD PRN 08/16/20 [History] Albuterol Sulfate [Proair Hfa] 1 - 2 puff INHALATION Q6HR PRN #1 inhaler 08/19/20 [Rx] Aspirin 81 mg PO DAILY chew 08/19/20 [Rx] Atorvastatin [Lipitor] 20 mg PO HS #30 tab 08/19/20 [Rx] Furosemide [Lasix] 40 mg PO BID@0900,1600 #60 tab 08/19/20 [Rx] Isosorbide Mononitrate ER [Imdur] 30 mg PO DAILY #30 tab.er.24h 08/19/20 [Rx] Metoprolol Tartrate [Lopressor] 100 mg PO BID #120 tab 08/19/20 [Rx] Nicotine 14Mg/24Hr Patch [Habitrol] 1 patch TRANSDERM DAILY #30 patch 08/19/20 [Rx] hydrALAZINE HCL [Apresoline] 50 mg PO BID #60 tab 08/19/20 [Rx] Follow up Appointment(s)/Referral(s): Sherin Whiting MD [STAFF PHYSICIAN] - 09/01/20 1:20 pm [facility] [facility] [NON-STAFF] - (Can help with transportation, meals on wheels, housekeeping) Sukhdeep Vázquez DO [Primary Care Provider] - 1-2 days (office will call with an appointment) Beto Eastman MD [STAFF PHYSICIAN] - 09/05/20 9:40 am Jannet Herring MD [STAFF PHYSICIAN] - 09/12/20 9:45 am Activity/Diet/Wound Care/Special Instructions: DO NOT TAKE NSAID. Maintain chapin for home until seen by Dr. Eastman. Discharge/Stand Alone Forms: Who Do I Call?, Community Resources Discharge Disposition: HOME SELF-CARE
[2020-08-19] MEDS: FUROSEMIDE 40 MG TAB PO SCH (09:33)
[2020-08-19] MEDS: METOPROLOL TARTRATE 50 MG TAB PO SCH (09:33)
[2020-08-19] MEDS: hydrALAZINE HCL 50 MG TAB PO SCH (09:33)
[2020-08-19] MEDS: NICOTINE 14MG/24HR PATCH TRANSDERM SCH (09:33)
[2020-08-19] MEDS: ISOSORBIDE MONONITRATE ER 30 MG TAB.ER.24H PO SCH (09:33)
[2020-08-19] MEDS: ALPRAZolam 0.25 MG TAB PO PRN ×2 (09:33→13:42)
--- NOTE | 2020-08-19 10:57 | XR ---
EXAMINATION TYPE: XR chest 1V portable DATE OF EXAM: 08/19/2020 COMPARISON: 08/16/2020 HISTORY: Shortness of breath TECHNIQUE: Single frontal view of the chest is obtained. FINDINGS: Heart is enlarged and there is hyperinflation. No pleural effusion or pneumothorax. Diffus e osteopenia. No focal pneumonia. Coarsened interstitium seen. IMPRESSION: 1. Cardiomegaly correlate for chronic interstitial lung disease. Superimposed interstitial pneumoniti s or bronchitis in the differential diagnosis. Mild venous congestion not excluded.
[2020-08-19 10:59] VITALS: BP 136/67; PULSE 79; RESP 20; TEMP 99.6
--- NOTE | 2020-08-19 13:35 | P.PN ---
Subjective Progress Note Date: 08/19/20 HISTORY OF PRESENT ILLNESS: 08/17/2020 This is a 60-year-old female with a past medical history significant for anxiety, depression, carotid stenosis with previous right carotid endarterectomy and nicotine dependence. 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 We have been asked to see the patient in consultation for shortness of breath. Patient originally presented to the hospital on 08/15/2020 secondary to shortness of breath. She was admitted to the cardiac stepdown unit however she left yesterday AMA. Patient states that her family made her come back to the emergency room. Patient states she has been expressing shortness of breath for the past several months. She states the shortness of breath is only with exertion. She denies redness of breath at rest. She denies any chest pain or pressure. She reports a history of smoking and states she smokes 1-2 packs of cigarettes a day. She denies any previous cardiac history. She denies having a stress test or cardiac catheterization in the past. EKG reveals sinus mechanism with T-wave inversions in inferior leads Chest xray no acute process Laboratory data: WBC 8.9. Hemoglobin 11.2. Platelet count 175. Sodium 136. Potassium 3.7. BUN 38. Creatinine 3.39. Magnesium 1.7. BNP 32,100. Troponin 0.012. 0.054. 0.915. Current home cardiac medications include none VQ scan performed revealed intermediate probability of pulmonary embolism Venous Doppler: Negative for DVT Echocardiogram revealed ejection fraction 55-60%, mild mitral regurgitation, and mild tricuspid regurgitation 08/18/2020 Patient examined this means bedside. Patient is very anxious and tearful. She denies chest pain or pressure. She denies shortness of breath at rest. She does report shortness of breath with ambulation. 08/19/2020 Patient examined this morning at the bedside. Patient denies chest pain or pressure. She denies shortness of breath. She has been discharged per internal medicine. Vital signs are stable. PHYSICAL EXAM: VITAL SIGNS: Reviewed. GENERAL: Well-developed in no acute distress. HEENT: Head is normocephalic. Pupils are equal, round. Sclerae anicteric. Mucous membranes of the mouth are moist. Neck supple. No JVD or thyromegaly LUNGS: Respirations even and unlabored. Lungs diminished bilaterally. HEART: Regular rate and rhythm. S1 and S2 heard. ABDOMEN: Soft. Nondistended. Nontender. EXTREMITIES: Normal range of motion. No clubbing or cyanosis. Peripheral pulses intact. Trace bilateral lower extremity edema NEUROLOGIC: Awake and alert. Oriented x 3. ASSESSMENT: Exertional shortness of breath Acute diastolic heart failure, EF 55-60%, BNP 32,100 Acute on chronic renal failure Abnormal troponins, possible NSTEMI, however may be secondary to acute renal failure and heart failure Hypertension Carotid stenosis with previous right carotid endarterectomy Possible PE, VQ scan revealing intermediate probability of PE COPD Nicotine dependence PLAN: Recommend smoking cessation Continue current cardiac medications Patient has been discharged per internal medicine. Agreeable to discharge home today. She is to follow up outpatient for further cardiac workup Further recommendations pending patient's course Nurse practitioner note has been reviewed by physician. Signing provider agrees with the documented findings, assessment, and plan of care. Objective - Vital Signs Vital signs: Vital Signs Temp 99.6 F 08/19/20 08:00 Pulse 76 08/19/20 08:35 Resp 20 08/19/20 08:00 BP 136/67 08/19/20 08:00 Pulse Ox 96 08/19/20 08:00 Intake & Output 08/18/20 08/19/20 08/19/20 18:59 06:59 18:59 Intake Total 2124 240 Output Total 2900 1540 275 Balance -776 -1540 -35 Weight 95.3 kg Intake: Intake, IV Titration 300 Amount Azithromycin 500 mg In 250 Sodium Chloride 0.9% 250 ml @ 250 mls/hr IVPB DAILY PAP[facility]O Rx#:[id number] cefTRIAXone 1 gm In 50 Sodium Chloride 0.9% 50 ml @ 100 mls/hr IVPB Q24HR PAPITO Rx#:[id number] Oral 1824 240 Output: Urine 2900 1540 275 Straight 800 Other: Voiding Method Indwelling Catheter Indwelling Catheter - Labs CBC & Chem 7: 08/18/20 07:34 08/19/20 06:25 Labs: Abnormal Lab Results - Last 24 Hours (Table) 08/19/20 Range/Units 06:25 BUN 41 H (7-17) mg/dL Creatinine 3.97 H (0.52-1.04) mg/dL Calcium 8.2 L (8.4-10.2) mg/dL Microbiology - Last 24 Hours (Table) 08/17/20 15:00 Urine Culture - Preliminary Urine,Voided Gram Neg Bacilli 08/17/20 15:01 Blood Culture - Preliminary Blood No Growth after 24 hours
[2020-08-19] MEDS ORDERED: AZITHROMYCIN 500 MG TAB PO SCH (15:30)
--- NOTE | 2020-08-19 15:57 | P.PN ---
Subjective Progress Note Date: 08/19/20 Principal diagnosis: Shortness of breath, abdominal discomfort This is a 60-year-old female patient, presented to the emergency department yesterday because of worsening shortness of breath and abdominal discomfort. She has known to have chronic dyspnea and it was worse yesterday and for that reason she came into the ED. She has history of chronic smoking. She did have exertional dyspnea. She was in the burst department for the same complaint on 08/15/2020. At that time, she had a workup which included a VQ scan that showed moderate to severe airway disease and there is intermediate probability for pulmonary embolism. CAT scan of the abdomen that was done without contrast showed questionable enteritis and some colonic wall thickening at the level of the rectosigmoid colon. No evidence of any other acute abnormalities. The lung bases were essentially showing some limited mosaic perfusion in the lung bases without any major abnormalities. The echocardiogram showed a preserved LV function with an ejection fraction of 55-60%. No significant valvular abnorma lities. There was mild aortic sclerosis. PA pressure was minimally elevated. Her blood work for now showing a white cell count of 8.9 with a hemoglobin of 11.2. Platelet counts are normal. The patient has a BUN of 38 with a creatinine of 3.39 probably related to chronic kidney disease. The rest of the electrodes are all within normal limits, liver function since of normal, troponin was 0.9 and the proBNP level was 32,001 100 on 08/16/2020. She is currently on IV heparin. Cardiac rhythm is sinus and the patient had voltage criteria for LVH without any acute ischemic changes. Doppler of the lower extremity was also done that showed no evidence of any DVT. Currently the patient is subjected to diuretics and she is receiving Lasix 40 mg every 12 hours pH is on oxygen at room air and she has a pulse ox of 94%. Morning temperature was 100.6 and this is the first brachytherapy that were seen during this current admission. On 08/18/2020 patient seen in follow-up on selective care unit, she is awake and alert, she is currently on room air, pulse ox is 93%, she is afebrile, vital s igns are stable, she remains on diuretics, Lasix 40 mg every 12 hours, she is in -2.9 L Balance over the last 24 hours, 0.9 normal saline infusing at a rate of 10 mL per hour. She remains on azithromycin and Rocephin, possibility of urinary tract infection, urine culture is pending, patient had a low-grade fever early this morning at 3:00 in the morning with a temp of 100.5F, denies any cough, d enies any significant phlegm production. Her VQ scan showed intermediate probability for pulmonary embolism. Dopplers did not show evidence of DVT. Today's lab work has been reviewed showing white blood cell count 9.5, hemoglobin of 10.5, electrolytes were within normal limits, renal profile is s table with BUN of 40 and creatinine of 3.9, nephrology is following, patient remains on heparin infusion for possibility of PE which seems to be less likely. On 08/19/2020 patient seen in follow-up on selective care unit, she is resting comfortably in bed, she is on room air pulse ox of 96%, no complaints of shortness of breath, no wheezing, cough or phlegm production, today's chest x- ray shows cardiomegaly with chronic interstitial disease or mild venous congestion. No complaints of chest pain, echocardiogram showed EF of 55-60%, mild mitral regurgitation and mild tricuspid regurg. No specific complaints. She was cleared for discharge by cardiology and internal medicine. From pulmonary perspective she is also stable for discharge. Objective - Vital Signs Vital signs: Vital Signs Temp 99.6 F 08/19/20 08:00 Pulse 76 08/19/20 08:35 Resp 20 08/19/20 08:00 BP 136/67 08/19/20 08:00 Pulse Ox 96 08/19/20 08:00 Intake & Output 08/18/20 08/19/20 08/19/20 18:59 06:59 18:59 Intake Total 2124 240 Output Total 2900 1540 275 Balance -776 -1540 -35 Weight 95.3 kg Intake: Intake, IV Titration 300 Amount Azithromycin 500 mg In 250 Sodium Chloride 0.9% 250 ml @ 250 mls/hr IVPB DAILY [facility]O Rx#:[id number] cefTRIAXone 1 gm In 50 Sodium Chloride 0.9% 50 ml @ 100 mls/hr IVPB Q24HR PAPITO Rx#:[id number] Oral 1824 240 Output: Urine 2900 1540 275 Straight 800 Other: Voiding Method Indwelling Catheter Indwelling Catheter - Exam GENERAL EXAM: Alert, very pleasant, 60-year-old white female on room air with a pulse ox 93% comfortable in no apparent distress. HEAD: Normocephalic/atraumatic. EYES: Normal reaction of pupils, equal size. Conjunctiva pink, sclera white. NOSE: Clear with pink turbinates. THROAT: No erythema or exudates. NECK: No masses, no JVD, no thyroid enlargement, no adenopathy. CHEST: No chest wall deformity. Symmetrical expansion. LUNGS: Equal air entry with no crackles, wheeze, rhonchi or dullness. CVS: Regular rate and rhythm, normal S1 and S2, no gallops, no murmurs, no rubs ABDOMEN: Soft, nontender. No hepatosplenomegaly, normal bowel sounds, no guarding or rigidity. EXTREMITIES: No clubbing, no edema, no cyanosis, 2+ pulses and upper and lower extremities. MUSCULOSKELETAL: Muscle strength and tone normal. SPINE: No scoliosis or deformity SKIN: No rashes CENTRAL NERVOUS SYSTEM: Alert and oriented -3. No focal deficits, tone is normal in all 4 extremities. PSYCHIATRIC: Alert and oriented -3. Appropriate affect. Intact judgment and insight. - Labs CBC & Chem 7: 08/18/20 07:34 08/19/20 06:25 Labs: Abnormal Lab Results - Last 24 Hours (Table) 08/19/20 Range/Units 06:25 BUN 41 H (7-17) mg/dL Creatinine 3.97 H (0.52-1.04) mg/dL Calcium 8.2 L (8.4-10.2) mg/dL Microbiology - Last 24 Hours (Table) 08/17/20 15:00 Urine Culture - Preliminary Urine,Voided Gram Neg Bacilli 08/17/20 15:01 Blood Culture - Preliminary Blood No Growth after 24 hours Assessment and Plan Plan: Assessment: 1 Dyspnea, chronic, currently on room air oxygen with a pulse of 94%. The patient has COPD secondary to chronic smoking. No signs of an acute exacerbation. No signs of any decompensated heart failure. No signs of any pulmonary infection for now. 2 acute on chronic kidney disease and the patient has taken significant amount o f nonsteroidals in the past and the patient is a smoker and has shrunken kidneys consistent with chronic kidney disease. 3 possible non-STEMI with minimal troponin leak, no acute ischemic EKG changes and echocardiogram showing preserved LV function with some mild diastolic heart failure. 4 hypertension , currently under better BP control 5 Carotid artery disease with a previous endarterectomy 6 peripheral neuropathy 7 hiatal hernia 8 chronic back pain 9 hypothyroidism 7 hyperlipidemia Plan: Patient has been diuresed, her breathing has improved, today's chest x-ray has been reviewed still showing some mild venous pulm congestion, clinically patient is stable, she is on room air, she's had no acute events overnight, no specific complaints of complaints of chest pain. She is stable for discharge home from pulmonary perspective with outpatient follow-up with Dr. Vuong in 2-3 weeks I performed a history & physical examination of the patient and discussed their management with my nurse practitioner, Kaia Guerrero. I reviewed the nurse practitioner's note and agree with the documented findings and plan of care. Lung sounds are positive for diminished breath sounds. The findings and the impression was discussed with the patient. I attest to the documentation by the nurse practitioner. Time with Patient: Less than 30
--- NOTE | 2020-08-19 18:43 | PN ---
PROGRESS NOTE Patient is seen for followup for acute kidney injury. The patient has had urine retention, for which she has an indwelling Ji catheter. She also has an atrophic left kidney. Serum creatinine has been staying at 3.9 mg/dL. No evidence of significant hypotension. Previous creatinine has been 1.2 to 1.5 mg/dL. The patient has been asking to go home. PHYSICAL EXAMINATION: On examination today, blood pressure 136/67, heart rate 79 per minute. She is afebrile. EXAMINATION OF THE HEART: S1 and S2. EXAMINATION OF LUNGS: Bilateral breath sounds are heard. ABDOMEN: Soft, non-tender. Examination of lower extremities shows no significant edema. COKE WORKER exam is grossly intact. LABS: Sodium 138, potassium 3.8, BUN 41, creatinine 3.97. ASSESSMENT: 1. Acute kidney injury, acute tubular necrosis, as well as possible component of obstructive uropathy with urine retention, currently with indwelling Ji catheter. Serum creatinine remains about the same. The patient did have significant use of NSAIDs prior to admission, which definitely contributed to her acute kidney injury. 2. Urine retention, currently with indwelling Ji catheter. Patient should continue with the Ji catheter and follow up with Urology as outpatient. 3. Atrophic left kidney. PLAN: Follow up as outpatient in one week. Continue with Ji catheter. Follow up with Urology as well. Continue to avoid NSAIDs. MMODL / IJN: [id number] /
== END 2020-08-19 14:14 | disposition home or self-care (01) | DRG 291 ==
LOC: EC 09:23 → 3SCARD 11:01
PROVIDERS: ADMIT Internal Medicine Geriatric Medicine; ATTEND Internal Medicine Geriatric Medicine
DX: I13.0 Hypertensive heart and chronic kidney disease with heart failure and stage 1 through stage 4 chronic kidney disease, or unspecified chronic kidney disease (principal); N17.0 Acute kidney failure with tubular necrosis; I50.31 Acute diastolic (congestive) heart failure; J44.1 Chronic obstructive pulmonary disease with (acute) exacerbation; R51.9 Headache, unspecified; Z88.0 Allergy status to penicillin; G62.9 Polyneuropathy, unspecified; G89.29 Other chronic pain; M54.9 Dorsalgia, unspecified; F17.210 Nicotine dependence, cigarettes, uncomplicated; Z80.3 Family history of malignant neoplasm of breast; I25.10 Atherosclerotic heart disease of native coronary artery without angina pectoris; Z80.49 Family history of malignant neoplasm of other genital organs; E78.5 Hyperlipidemia, unspecified; E03.9 Hypothyroidism, unspecified; K44.9 Diaphragmatic hernia without obstruction or gangrene; I65.29 Occlusion and stenosis of unspecified carotid artery; N18.30 Chronic kidney disease, stage 3 unspecified; N26.1 Atrophy of kidney (terminal); N13.9 Obstructive and reflux uropathy, unspecified; I08.1 Rheumatic disorders of both mitral and tricuspid valves; I27.21 Secondary pulmonary arterial hypertension; R77.8 Other specified abnormalities of plasma proteins; I16.0 Hypertensive urgency; F41.9 Anxiety disorder, unspecified
CPT/HCPCS: 36415; 71045; 71046; 76770; 80048; 80053; 81001; 82043; 82570; 83735; 83880; 84100; 84133; 84300; 84484; 84540; 85025; 85610; 85730; 87040; 87077; 87086; 87186; 93005; 93970; 94640; 96365; 96366; 96374; 96375; 96376; 99291

== ENCOUNTER 2021-12-04 07:57 | Emergency (ER) | payer MEDICARE ==
[2021-12-04 08:12] VITALS: RESP 18
[2021-12-04] MEDS ORDERED: LORazepam 2 MG/ML INJ IV STA (08:21)
[2021-12-04] MEDS ORDERED: SODIUM CHLORIDE 0.9% 1,000 ML IV STA (08:21)
--- NOTE | 2021-12-04 08:25 | ED ---
General Adult HPI - General Chief complaint: Nausea/Vomiting/Diarrhea Stated complaint: N&V Time Seen by Provider: 12/04/21 08:01 Source: patient Mode of arrival: EMS - History of Present Illness Initial comments: Dictation was produced using [employer]maze dictation software. please excuse any grammatical, word or spelling errors. Chief Complaint: 61-year-old female presents to the emergency department via EMS for nausea, vomiting and diarrhea. History of Present Illness: Patient is a 7-year-old female she presents to the emergency department for nausea vomiting and diarrhea. Patient states she's been dealing with these issues for several months. States that her symptoms this morning were severe probably her to call the EMS to come to the emergency room. Patient was prescribed a anticonstipation medicine by her primary care doctor she believes exacerbated his symptoms. Patient states she does have some cramping during diarrhea however goes away. She'll remain relatively symptomatic for several hours. Patient states that she does not have any pain at this moment. She was given Zofran by EMS providers en route to the [facility] for which we resolved her nausea symptoms. Patient states she feels anxious at the bedside patient apparently is a house. Patient denies any headache complains. She has history of hypertension and takes antihypertensive medications daily. She reports being compliant with her blood pressure medications recently. The ROS documented in this emergency department record has been reviewed and confirmed by me. Those systems with pertinent positive or negative responses have been documented in the HPI. All other systems are other negative and/or noncontributory. PHYSICAL EXAM: General Impression: Alert and oriented x3, not in acute distress HEENT: Normocephalic atraumatic, extra-ocular movements intact, pupils equal and reactive to light bilaterally, mucous membranes moist. Cardiovascular: Heart regular rate and rhythm Chest: Able to complete full sentences, no retractions, no tachypnea Abdomen: abdomen soft, non-tender, non-distended, no organomegaly Musculoskeletal: Pulses present and equal in all extremities, no peripheral edema Motor: no focal deficits noted Neurological: CN II-XII grossly intact, no focal motor or sensory deficits noted Skin: Intact with no visualized rashes Psych: Tearful ED course: 61 yo well-appearing female presents to the emergency Department for GI symptoms. She states that they've been episodic for the last several months. Signs upon arrival are within acceptable limits. Patient's blood pressure 190/101. Patient does not have any symptoms of hypertensive emergency. She is not dyspneic, denies headache denies chest pain or shortness of breath. EKG interpretation: Ventricular rate 62, sinus rhythm,. 186, QRS is 94, QTC 419. No AK prolongation, no QTC prolongation, no ST or T-wave changes noted. EKG compared to 08/03/2021 showing no changes. Overall, this EKG is unremarkable Laboratory evaluation obtained. CBC unremarkable. Metabolic panel shows creatinine 2.91. Patient has history of elevated creatinine going back to August of last year. Labs are otherwise unremarkable. Patient observed in the emergency department for approximately 2 hours. At 10:00 AM on reevaluation she is stable for discharge. - Related Data Home Medications Medication Instructions Recorded Confirmed Gabapentin [Neurontin] 400 mg PO TID 10/13/18 12/04/21 Omeprazole [PriLOSEC] 20 mg PO DAILY 10/13/18 12/04/21 Hydrocortisone Cream 1 applic TOPICAL DAILY PRN 08/16/20 12/04/21 [Hydrocortisone 2.5% Cream] Clotrimazole/Betameth Cream 1 applic TOPICAL BID 12/04/21 12/04/21 [Lotrisone] Ketoconazole 2% Shampoo [Nizoral] 1 applic TOPICAL Q3D 12/04/21 12/04/21 Metoprolol Tartrate [Lopressor] 100 mg PO BID 12/04/21 12/04/21 Naloxegol Oxalate [Movantik] 25 mg PO DAILY 12/04/21 12/04/21 oxyCODONE-APAP 10-325MG [Percocet 1 tab PO QID 12/04/21 12/04/21 10-325 mg] Allergies Allergy/AdvReac Type Severity Reaction Status Date / Time amoxicillin AdvReac Nausea & Verified 12/04/21 09:39 Vomiting Review of Systems ROS Statement: Those systems with pertinent positive or pertinent negative responses have been documented in the HPI. ROS Other: All systems not noted in ROS Statement are negative. Past Medical History Past Medical History: Musculoskeletal Disorder Additional Past Medical History / Comment(s): Carotid artery disease, hiatal hernia, peripheral neuropathy, chronic back pain, seasonal environmental ALLERG IES, osteoarthritis History of Any Multi-Drug Resistant Organisms: None Reported Past Surgical History: Back Surgery, Section, Tubal Ligation Additional Past Surgical History / Comment(s): SINUS SURGERY. RIGHT CAROTID ENDARTERECTOMY. Past Anesthesia/Blood Transfusion Reactions: Previous Problems w/ Anesthesia Additional Past Anesthesia/Blood Transfusion Reaction / Comment(s): SHE WAS TOLD IT TOOK ALOT OF MEDICATION TO PUT HER OUT FOR PAIN PROCEDURE. Past Psychological History: Anxiety, Depression Smoking Status: Current every day smoker Past Alcohol Use History: Occasional Past Drug Use History: None Reported - Past Family History Father Additional Family Medical History / Comment(s): Father at age 52 from suicide. Sister(s) Additional Family Medical History / Comment(s): Patient has 2 sisters and 5 brothers with no major medical problems. Patient has one son and one daughter with no major medical problems. Mother Family Medical History: Cancer Additional Family Medical History / Comment(s): Mother at age 59 from breast cancer. Course Vital Signs 12/04/21 12/04/21 12/04/21 08:01 09:08 10:00 Temperature 98.3 F Pulse Rate 64 65 75 Respiratory 18 18 18 Rate Blood Pressure 190/101 192/114 156/119 O2 Sat by Pulse 97 97 97 Oximetry Medical Decision Making - Lab Data Result diagrams: 12/04/21 08:59 12/04/21 08:59 Lab Results 12/04/21 12/04/21 Range/Units 08:59 08:59 WBC 7.3 (3.8-10.6) k/uL RBC 4.62 (3.80-5.40) m/uL Hgb 14.1 (11.4-16.0) gm/dL Hct 44.6 (34.0-46.0) % MCV 96.5 (80.0-100.0) fL MCH 30.6 (25.0-35.0) pg MCHC 31.7 (31.0-37.0) g/dL RDW 16.6 H (11.5-15.5) % Plt Count 140 L (150-450) k/uL MPV 8.6 Neutrophils % 72 % Lymphocytes % 17 % Monocytes % 6 % Eosinophils % 3 % Basophils % 1 % Neutrophils # 5.3 (1.3-7.7) k/uL Lymphocytes # 1.2 (1.0-4.8) k/uL Monocytes # 0.4 (0-1.0) k/uL Eosinophils # 0.2 (0-0.7) k/uL Basophils # 0.1 (0-0.2) k/uL Hypochromasia Moderate Anisocytosis Slight Sodium 138 (137-145) mmol/L Potassium 4.9 (3.5-5.1) mmol/L Chloride 113 H (98-107) mmol/L Carbon Dioxide 21 L (22-30) mmol/L Anion Gap 4 mmol/L BUN 13 (7-17) mg/dL Creatinine 2.91 H (0.52-1.04) mg/dL Est GFR (CKD-EPI)AfAm 19 (>60 ml/min/1.73 sqM) Est GFR (CKD-EPI)NonAf 17 (>60 ml/min/1.73 sqM) Glucose 93 (74-99) mg/dL Calcium 8.4 (8.4-10.2) mg/dL Disposition Clinical Impression: Nausea Disposition: HOME SELF-CARE Condition: Good Instructions (If sedation given, give patient instructions): Acute Diarrhea ( ED), Acute Nausea and Vomiting (ED) Is patient prescribed a controlled substance at d/c from ED?: No Referrals: Sukhdeep Vázquez DO [Primary Care Provider] - 1-2 days Time of Disposition: 10:12
[2021-12-04 09:38] LABS: Anisocytosis Slight; Basophils # (A) 0.1 k/uL (0-0.2); Basophils % (A) 1 %; Eosinophils # (A) 0.2 k/uL (0-0.7); Eosinophils % (A) 3 %; HCT 44.6 % (34.0-46.0); HGB 14.1 gm/dL (11.4-16.0); Hypochromasia Moderate; Lymphocytes # (A) 1.2 k/uL (1.0-4.8); Lymphocytes % (A) 17 %; MCH 30.6 pg (25.0-35.0); MCHC 31.7 g/dL (31.0-37.0); MCV 96.5 fL (80.0-100.0); Mean Platelet Volume 8.6; Monocytes # (A) 0.4 k/uL (0-1.0); Monocytes % (A) 6 %; Neutrophils # (A) 5.3 k/uL (1.3-7.7); Neutrophils % (A) 72 %; Platelet Count 140 k/uL (150-450); RBC 4.62 m/uL (3.80-5.40); RDW 16.6 % (11.5-15.5); WBC 7.3 k/uL (3.8-10.6)
[2021-12-04 09:55] LABS: Calcium 8.4 mg/dL (8.4-10.2); Potassium 4.9 mmol/L (3.5-5.1)
[2021-12-04 10:46] VITALS: BP 140/90; PULSE 68; TEMP 97.7
== END 2021-12-04 10:44 | disposition home or self-care (01) ==
LOC: EC 07:57
DX: R11.2 Nausea with vomiting, unspecified (principal); R19.7 Diarrhea, unspecified; F17.200 Nicotine dependence, unspecified, uncomplicated; Z88.0 Allergy status to penicillin
CPT/HCPCS: 36415; 93005; 80048; 85025; 99284; 96374; 96361; J2060

== ENCOUNTER → 2022-09-28 | Outpatient (CLI) | payer MEDICARE ==
[2022-09-28 16:45] LABS: African American GFR (CKD) 13.6 (60.0-200.0); Albumin/Globulin Ratio 1.48 (1.60-3.17); BUN/Creat Ratio 7.18 Ratio (12.00-20.00); Calcium 9.7 mg/dL (8.7-10.3); Globulin 2.7 g/dL (1.6-3.3); Magnesium 2.3 mg/dL (1.5-2.4); Non-African American GFR(CKD) 11.7 (60.0-200.0); Phosphorus 4.2 mg/dL (2.4-5.1); Potassium 4.4 mmol/L (3.5-5.5); Total Bilirubin 0.4 mg/dL (0.30-1.20); Total Protein 6.7 g/dL (6.2-8.2)
== END | disposition home or self-care (01) ==
LOC: LABWHC1 10:01
PROVIDERS: ATTEND Nurse Practitioner Acute Care
DX: N17.9 Acute kidney failure, unspecified (principal)
CPT/HCPCS: 36415; 80053; 83735; 84100

== ENCOUNTER → 2022-12-15 | Outpatient (CLI) | payer MEDICARE ==
[2022-12-15 15:44] LABS: Basophils # (A) 0.04 X 10*3/uL (0.00-0.10); Basophils % (A) 0.8 %; Eosinophils # (A) 0.17 X 10*3/uL (0.04-0.35); Eosinophils % (A) 3.3 %; HGB 13.4 d/dL (12.0-15.0); Lymphocytes # (A) 1.53 X 10*3/uL (0.90-5.00); Lymphocytes % (A) 30.1 %; MCH 31.8 pg (27.0-32.0); MCHC 33.5 d/dL (32.0-37.0); MCV 94.8 FL (80.0-97.0); Mean Platelet Volume 10.3 FL (9.5-12.2); Monocytes # (A) 0.48 X 10*3/uL (0.20-1.00); Monocytes % (A) 9.4 %; NRBC Per 100 WBC 0 X 10*3/uL (0.00-0.01); Neutrophils # (A) 2.85 X 10*3/uL (1.80-7.70); Platelet Count 174 X 10*3/uL (140-440); RBC 4.22 X 10*6/uL (4.10-5.20); RDW 16.3 % (11.5-14.5); WBC 5.09 X 10*3/uL (4.50-10.00)
[2022-12-15 16:38] LABS: % Iron Saturation 21.33 (12.00-45.00); Albumin 4.1 d/dL (3.8-4.9); BUN/Creat Ratio 5.82 Ratio (12.00-20.00); Blood Urea Nitrogen 22.7 mg/dL (9.0-27.0); Calcium 9.8 mg/dL (8.7-10.3); Carbon Dioxide 26.9 mmol/L (21.6-31.8); Chloride 102 mmol/L (96-109); Glucose 98 mg/dL (70-110); Iron 48 UG/DL (50-170); Magnesium 2.3 mg/dL (1.5-2.4); Phosphorus 3.9 mg/dL (2.4-5.1); Potassium 5.3 mmol/L (3.5-5.5); Sodium 140 mmol/L (135-145); Total Iron Binding Capacity 225 UG/DL (228-460); Uric Acid 7.2 mg/dL (2.9-7.7)
== END | disposition home or self-care (01) ==
LOC: LABWHC1 10:25
PROVIDERS: ATTEND Internal Medicine Nephrology
DX: N25.81 Secondary hyperparathyroidism of renal origin (principal); N18.5 Chronic kidney disease, stage 5; D63.1 Anemia in chronic kidney disease; E55.9 Vitamin D deficiency, unspecified; N39.0 Urinary tract infection, site not specified; M10.9 Gout, unspecified; R80.9 Proteinuria, unspecified
CPT/HCPCS: 36415; 80048; 82040; 82306; 82728; 83540; 83550; 83735; 83970; 84100; 84550; 85025

== ENCOUNTER → 2023-01-26 | Outpatient (CLI) | payer MEDICARE ==
[2023-01-26 14:59] LABS: Basophils # (A) 0.03 X 10*3/uL (0.00-0.10); Basophils % (A) 0.4 %; Eosinophils # (A) 0.24 X 10*3/uL (0.04-0.35); Eosinophils % (A) 3.5 %; HCT 40.7 % (37.2-46.3); HGB 13.6 d/dL (12.0-15.0); Lymphocytes # (A) 1.98 X 10*3/uL (0.90-5.00); Lymphocytes % (A) 29.2 %; MCH 31.6 pg (27.0-32.0); MCHC 33.4 d/dL (32.0-37.0); MCV 94.7 FL (80.0-97.0); Mean Platelet Volume 10.3 FL (9.5-12.2); Monocytes # (A) 0.74 X 10*3/uL (0.20-1.00); Monocytes % (A) 10.9 %; NRBC Per 100 WBC 0 X 10*3/uL (0.00-0.01); Neutrophils # (A) 3.78 X 10*3/uL (1.80-7.70); Neutrophils % (A) 55.7 %; Platelet Count 171 X 10*3/uL (140-440); RDW 16.2 % (11.5-14.5); WBC 6.79 X 10*3/uL (4.50-10.00)
[2023-01-26 17:30] LABS: % Iron Saturation 20.63 (12.00-45.00); Albumin 4.2 d/dL (3.8-4.9); BUN/Creat Ratio 5.76 Ratio (12.00-20.00); Blood Urea Nitrogen 23.6 mg/dL (9.0-27.0); Calcium 9.9 mg/dL (8.7-10.3); Carbon Dioxide 25.7 mmol/L (21.6-31.8); Chloride 100 mmol/L (96-109); Glucose 104 mg/dL (70-110); Iron 46 UG/DL (50-170); Magnesium 2.3 mg/dL (1.5-2.4); Phosphorus 3.7 mg/dL (2.4-5.1); Sodium 138 mmol/L (135-145); Total Iron Binding Capacity 223 UG/DL (228-460); Uric Acid 7.1 mg/dL (2.9-7.7)
== END | disposition home or self-care (01) ==
LOC: LABWHC1 08:37
PROVIDERS: ATTEND Internal Medicine
DX: E55.9 Vitamin D deficiency, unspecified (principal); D63.1 Anemia in chronic kidney disease; N25.81 Secondary hyperparathyroidism of renal origin; M10.9 Gout, unspecified; N39.0 Urinary tract infection, site not specified; N18.5 Chronic kidney disease, stage 5; R80.9 Proteinuria, unspecified
CPT/HCPCS: 36415; 80048; 82040; 82306; 82728; 83540; 83550; 83735; 83970; 84100; 84550; 85025

== ENCOUNTER → 2023-02-24 | Outpatient (CLI) | payer MEDICARE ==
[2023-02-24 20:23] LABS: Magnesium 2.3 mg/dL (1.5-2.4); Phosphorus 3.6 mg/dL (2.4-5.1); Uric Acid 7.7 mg/dL (2.9-7.7)
[2023-02-24 20:24] LABS: BUN/Creat Ratio 5.74 Ratio (12.00-20.00); Blood Urea Nitrogen 26.4 mg/dL (9.0-27.0); Calcium 9.4 mg/dL (8.7-10.3); Carbon Dioxide 22.2 mmol/L (21.6-31.8); Chloride 102 mmol/L (96-109); Glucose 114 mg/dL (70-110); Potassium 4.3 mmol/L (3.5-5.5); Sodium 139 mmol/L (135-145)
[2023-02-24 20:54] LABS: HCT 39.4 % (37.2-46.3); HGB 13.1 d/dL (12.0-15.0); MCH 30.7 pg (27.0-32.0); MCHC 33.2 d/dL (32.0-37.0); MCV 92.3 FL (80.0-97.0); Mean Platelet Volume 10.5 FL (9.5-12.2); NRBC Per 100 WBC 0 X 10*3/uL (0.00-0.01); Platelet Count 191 X 10*3/uL (140-440); RBC 4.27 X 10*6/uL (4.10-5.20); RDW 14.5 % (11.5-14.5); WBC 5.38 X 10*3/uL (4.50-10.00)
== END | disposition home or self-care (01) ==
LOC: LABWHC1 15:41
PROVIDERS: ATTEND Nurse Practitioner Acute Care
DX: E55.9 Vitamin D deficiency, unspecified (principal); N18.5 Chronic kidney disease, stage 5; D63.1 Anemia in chronic kidney disease; N25.81 Secondary hyperparathyroidism of renal origin; M10.9 Gout, unspecified
CPT/HCPCS: 36415; 80048; 82306; 83735; 83970; 84100; 84550; 85027

== ENCOUNTER → 2023-04-06 | Outpatient (CLI) | payer MEDICARE ==
[2023-04-07 03:42] LABS: BUN/Creat Ratio 8.28 Ratio (12.00-20.00); Blood Urea Nitrogen 38.9 mg/dL (9.0-27.0); Carbon Dioxide 24.6 mmol/L (21.6-31.8); Chloride 105 mmol/L (96-109); Glucose 114 mg/dL (70-110); Magnesium 2.6 mg/dL (1.5-2.4); Phosphorus 5.2 mg/dL (2.4-5.1); Potassium 4.7 mmol/L (3.5-5.5); Sodium 141 mmol/L (135-145); Uric Acid 6.7 mg/dL (2.9-7.7)
[2023-04-07 04:22] LABS: HCT 38.2 % (37.2-46.3); HGB 11.8 d/dL (12.0-15.0); MCH 29.7 pg (27.0-32.0); MCHC 30.9 d/dL (32.0-37.0); MCV 96.2 FL (80.0-97.0); Mean Platelet Volume 11.1 FL (9.5-12.2); NRBC Per 100 WBC 0 X 10*3/uL (0.00-0.01); Platelet Count 169 X 10*3/uL (140-440); RBC 3.97 X 10*6/uL (4.10-5.20); RDW 15.4 % (11.5-14.5); WBC 6.19 X 10*3/uL (4.50-10.00)
== END | disposition home or self-care (01) ==
LOC: LABWHC1 14:37
PROVIDERS: ATTEND Internal Medicine Nephrology
DX: N18.5 Chronic kidney disease, stage 5 (principal)
CPT/HCPCS: 36415; 80048; 82306; 83735; 83970; 84100; 84550; 85027

== ENCOUNTER → 2023-05-12 | Outpatient (CLI) | payer MEDICARE ==
[2023-05-12 16:19] LABS: Basophils # (A) 0.04 X 10*3/uL (0.00-0.10); Basophils % (A) 0.6 %; Eosinophils # (A) 0.17 X 10*3/uL (0.04-0.35); Eosinophils % (A) 2.5 %; HCT 39.7 % (37.2-46.3); HGB 12.6 g/dL (12.0-15.0); Lymphocytes # (A) 2.13 X 10*3/uL (0.90-5.00); Lymphocytes % (A) 31.7 %; MCH 29.3 pg (27.0-32.0); MCHC 31.7 g/dL (32.0-37.0); MCV 92.3 FL (80.0-97.0); Mean Platelet Volume 10.5 FL (9.5-12.2); Monocytes # (A) 0.46 X 10*3/uL (0.20-1.00); Monocytes % (A) 6.9 %; NRBC Per 100 WBC 0 X 10*3/uL (0.00-0.01); Neutrophils # (A) 3.89 X 10*3/uL (1.80-7.70); Platelet Count 195 X 10*3/uL (140-440); RDW 16.6 % (11.5-14.5); WBC 6.71 X 10*3/uL (4.50-10.00)
[2023-05-12 16:59] LABS: ALT 10 U/L (8-44); AST 14 U/L (13-35); Albumin/Globulin Ratio 1.43 Ratio (1.60-3.17); Alkaline Phosphatase 81 U/L (41-126); BUN/Creat Ratio 8.78 Ratio (12.00-20.00); Blood Urea Nitrogen 31.6 mg/dL (9.0-27.0); Calcium 9.4 mg/dL (8.7-10.3); Carbon Dioxide 25.5 mmol/L (21.6-31.8); Chloride 102 mmol/L (96-109); Chol/HDL Ratio 3.09 Ratio; Globulin 2.8 g/dL (1.6-3.3); Glucose 83 mg/dL (70-110); LDL Cholesterol,Calculated 105.5 mg/dL (0.0-131.0); Potassium 4.9 mmol/L (3.5-5.5); Sodium 137 mmol/L (135-145); Total Bilirubin 0.2 mg/dL (0.3-1.2); Total Protein 6.8 g/dL (6.2-8.2)
[2023-05-12 17:00] LABS: T4, Free (Free Thyroxine) 1.09 ng/dL (0.80-1.80)
== END | disposition home or self-care (01) ==
LOC: LABWHC1 10:27
PROVIDERS: ATTEND Family Medicine
DX: Z00.00 Encounter for general adult medical examination without abnormal findings (principal); I10 Essential (primary) hypertension; E55.9 Vitamin D deficiency, unspecified; N17.9 Acute kidney failure, unspecified
CPT/HCPCS: 36415; 80053; 80061; 82306; 83036; 84439; 84443; 85025